=== PATIENT | male | born 1945 | race Caucasian/White ===

== ENCOUNTER → 2018-05-20 09:27 | Outpatient (CLI) | payer MEDICARE, SELFPAY ==
[2018-05-20 10:09] LABS: Appearance Urine UA CLEAR; Bilirubin Urine UA NEGATIVE (NEGATIVE); Color Urine UA YELLOW; Glucose Urine UA NEGATIVE (Negative); Ketones Urine UA NEGATIVE (NEGATIVE); Leukocyte Esterase Urine UA NEGATIVE (NEGATIVE); Nitrite Urine UA NEGATIVE (Negative); Occult Blood Urine UA 1+ (Negative); Protein Urine UA NEGATIVE (Negative); Specific Gravity Urine UA 1.015 (1.000-1.035); Urobilinogen Urine UA 0.2 E.U./dL (0.2)
[2018-05-20 10:18] LABS: Add Manual Diff / Slide Review NO; Basophils Absolute Auto 100 /uL (0-100); Basophils Percent Auto 1.1 % (0-2); Eosinophils Absolute Auto 200 /uL (0-450); Eosinophils Percent Auto 2.3 % (2-4); Hemoglobin 14.9 g/dL (13.5-17.5); Lymphocytes Absolute Auto 1800 /uL (1100-4500); Lymphocytes Percent Auto 26.9 % (25-40); Mean Corpuscular HGB Conc 33.1 % (30-36); Mean Corpuscular Hemoglobin 30.1 PG (26-34); Mean Corpuscular Volume 90.9 fL (80-100); Monocytes Absolute Auto 800 /uL (0-900); Monocytes Percent Auto 11.2 % (3-14); Neutrophils Absolute Auto 3900 /uL (1500-7000); Neutrophils Percent Auto 58.5 % (50-75); Platelet Count 228 X10^3/uL (150-400); Red Blood Cell Count 4.95 X10^6/uL (4.5-5.9); Red Cell Distribution Width 14.6 % (11.6-14.8); White Blood Cell Count 6.7 X10^3/uL (4.5-11.0)
[2018-05-20 10:35] LABS: Alanine Aminotransferase 28 IU/L (21-72); Albumin 4.5 g/dL (3.5-5.0); Albumin Globulin Ratio 1.5 (1.0-2.8); Alkaline Phosphatase 66 U/L (38-126); Aspartate Aminotransferase 22 IU/L (17-59); BUN Creatinine Ratio 10.9 (6-22); Bilirubin Total 0.5 mg/dL (0.2-1.3); Blood Urea Nitrogen 12 mg/dL (9-20); Calcium 9.4 mg/dL (8.4-10.2); Carbon Dioxide 28 mmol/L (22-32); Chloride 100 mmol/L (98-107); Cholesterol 161 mg/dL (140-199); Estimated Glomerular Filt Rate > 60.0 mL/min (>60); Globulin 3.1 g/dL (1.7-4.1); Glucose 100 mg/dL (80-110); HDL Cholesterol 26 mg/dL (40-60); HEMOLYSIS < 15 (0-50); LDL Cholesterol Calculated 109 mg/dL (<100); Potassium 4.7 mmol/L (3.4-5.1); Sodium 139 mmol/L (137-145); Total Protein 7.6 g/dL (6.3-8.2); Triglycerides 129 mg/dL (35-150)
[2018-05-20 11:06] LABS: Prostate Specific Antigen Scrn 6.34 ng/mL (0.1-4.0); Thyroid Stimulating Hormone 4.31 uIU/mL (0.47-4.68)
== END ==
PROVIDERS: PCP Family Medicine; Visit Provider Family Medicine
DX: I10 Essential (primary) hypertension (principal); N40.0 Benign prostatic hyperplasia without lower urinary tract symptoms; Z12.5 Encounter for screening for malignant neoplasm of prostate; Z13.29 Encounter for screening for other suspected endocrine disorder; Z51.81 Encounter for therapeutic drug level monitoring; Z86.73 Personal history of transient ischemic attack (TIA), and cerebral infarction without residual deficits
CPT/HCPCS: 36415; 80053; 80061; 81003; 84443; 85025; G0103

== ENCOUNTER → 2019-09-05 14:12 | Outpatient (CLI) | payer MEDICARE, SELFPAY ==
[2019-09-05 14:53] LABS: INR 3.4 (0.9-1.3); Prothrombin Time 38.2 SECONDS (10.1-12.7)
[2019-09-05 15:03] LABS: BUN Creatinine Ratio 17.6 (6-22); Blood Urea Nitrogen 19 mg/dL (9-20); Calcium 9.7 mg/dL (8.4-10.2); Carbon Dioxide 27 mmol/L (22-32); Chloride 103 mmol/L (98-107); Estimated Glomerular Filt Rate > 60.0 mL/min (>60); Glucose 94 mg/dL (80-110); HEMOLYSIS < 15 (0-50); Potassium 4.1 mmol/L (3.4-5.1); Sodium 140 mmol/L (137-145)
== END ==
PROVIDERS: PCP Student in an Organized Health Care Education/Training Program; Referring Provider Student in an Organized Health Care Education/Training Program; Visit Provider Student in an Organized Health Care Education/Training Program
DX: I10 Essential (primary) hypertension (principal); Z78.9 Other specified health status; I48.91 Unspecified atrial fibrillation
CPT/HCPCS: 36415; 80048; 85610

== ENCOUNTER → 2020-08-14 08:52 | Outpatient (CLI) | payer MEDICARE, SELFPAY ==
[2020-08-14 09:43] LABS: COVID19 -Nasal RAPID Negative (Negative)
== END ==
PROVIDERS: PCP Student in an Organized Health Care Education/Training Program; Referring Provider Internal Medicine; Visit Provider Internal Medicine
DX: Z20.822 Contact with and (suspected) exposure to COVID-19 (principal)
CPT/HCPCS: 87635; C9803

== ENCOUNTER → 2020-08-15 10:43 | Outpatient (CLI) | payer MEDICARE, SELFPAY ==
--- NOTE | 2020-08-21 11:09 | PM.PFT.1 ---
Pulmonary Function Test Referral & Results Date Patient Seen: 08/15/20 Requesting provider: Warren Negron Results: The spirometry demonstrates an FVC of 2.16 L which is 55% of predicted. The FEV1 was measured at 1.45 L which is 51% of predicted. The FEV1/FVC ratio was 67 which is 91% of predicted. Lung volumes show an SVC of 2.26 L which is 53% of predicted. The diffusing capacity was measured at 16.17 which is 54% of predicted. No hemoglobin value was provided, so no correction for potential anemia could be made, if appropriate. The maximum voluntary ventilation was reduced Interpretation: This study demonstrates moderately severe obstructive lung disease based on reduction FEV1 although FEV1/FVC ratio is preserved somewhat, and reduction in FEV1 maybe due in part to restrictive lung disease, shape a flow volume loop also does support the diagnosis of obstructive lung disease There is also moderately severe restrictive lung disease based on reduction SVC There is also moderate reduction in diffusing capacity suggesting significant disease at the capillary alveolar level
== END ==
PROVIDERS: PCP Student in an Organized Health Care Education/Training Program; Referring Provider Student in an Organized Health Care Education/Training Program; Visit Provider Student in an Organized Health Care Education/Training Program
DX: R06.00 Dyspnea, unspecified (principal); J44.9 Chronic obstructive pulmonary disease, unspecified; Z87.891 Personal history of nicotine dependence
CPT/HCPCS: 94060; 94726; 94729

== ENCOUNTER → 2021-11-17 13:16 | Outpatient (CLI) | payer MEDICARE, SELFPAY ==
[2021-11-17 15:07] LABS: Prothrombin Time 35.4 SECONDS (10.1-12.7)
== END ==
PROVIDERS: PCP Student in an Organized Health Care Education/Training Program; Referring Provider Student in an Organized Health Care Education/Training Program; Visit Provider Student in an Organized Health Care Education/Training Program
DX: Z79.01 Long term (current) use of anticoagulants (principal)
CPT/HCPCS: 36415; 85610

== ENCOUNTER 2022-02-18 12:38 | Emergency (ER) | payer MEDICARE, SELFPAY ==
[2022-02-18 12:45] VITALS: BP 143/69; PULSE 71; RESP 20; TEMP 36.7; O2SAT 96; BMI 32.5
[2022-02-18 12:47] VITALS: BP 143/69
[2022-02-18 12:48] VITALS: PULSE 68; O2SAT 96
[2022-02-18 13:00] VITALS: PULSE 64; O2SAT 97
--- NOTE | 2022-02-18 13:11 | DI.RAD.S_ITS ---
PROCEDURE: XR CHEST 1V INDICATIONS: COPD vs pneumonia TECHNIQUE: One view of the chest was acquired. COMPARISON: [facility], , CHEST 2 VIEW, 11/21/2015, 10:02. [facility], , CHEST 2 VIEW, 06/26/2014, 11:26. FINDINGS: Surgical changes and devices: Post median sternotomy. Lungs and pleura: Opacity in the right lower lobe. No pleural effusions or pneumothorax. Mediastinum: Mediastinal contours appear similar. Heart size is enlarged. Bones and chest wall: No suspicious bony lesions. Overlying soft tissues appear unremarkable. IMPRESSION: Opacity in the right lung is suspected. Concern for pneumonia. Heart size is prominent. CT of the chest could be considered for further evaluation. Dictated by: Artie Hidalgo M.D. on 02/18/2022 at 13:54 Approved by: Artie Hidalgo M.D. on 02/18/2022 at 13:56
--- NOTE | 2022-02-18 13:14 | ED.URI ---
HPI - URI/Sore Throat <Jackie Miller, [facility] - Last Filed: 02/18/22 14:17> General Chief Complaint: Upper Respiratory Symptoms Stated Complaint: cough with blood in it t-7 Time Seen by Provider: 02/18/22 12:55 Source: patient Mode of arrival: Ambulatory History of Present Illness HPI Narrative: This is a 76-year-old male who presents to the emergency department complaining shortness of breath secondary to running out of his albuterol and ipratropium inhalers. He states that he gets these from [facility] and his supply did not come to. He denies any worsening shortness of breath, upper respiratory symptoms out of ordinary, wheezing, difficulty breathing, difficulty swallowing or other new problem. He states that he is had productive cough, it is had some blood in it over the last week after he had a nosebleed. Patient states that his last INR is 2.9 and it was approximately 4 weeks ago. He states he checks his INR home if he has not really bleeding which he states he has not. He endorses that he has a nosebleed approximately once every week, states that he is had increased nasal congestion and rhinorrhea over the last 2 weeks and states that he took ibuprofen which he knows increases his bleeding time but helped his symptoms. Related Data Previous Rx's Medication Instructions Recorded warfarin 2.5 mg tablet 2.5 mg PO DAILY #110 tabs 08/26/21 albuterol sulfate 90 mcg/actuation 2 puff inhalation Q6H PRN 12/22/21 aerosol inhaler shortness of breath or wheezing #8.5 grams ipratropium bromide 17 2 puff inhalation Q8H #12.9 grams 12/22/21 mcg/actuation HFA aerosol inhaler metoprolol succinate 50 mg 50 mg PO BEDTIME #90 tabs 12/22/21 tablet,extended release 24 hr terazosin 10 mg capsule 10 mg PO QDAY #90 caps 12/30/21 clobetasol 0.05 % topical cream 1 applic topical DAILY PRN 02/09/22 Psoriasis #30 grams albuterol sulfate 90 mcg/actuation 1 puff inhalation QID PRN 02/18/22 aerosol inhaler shortness of breath or wheezing #8.5 grams amoxicillin 875 mg-potassium 1 tab PO BID 5 days #10 tabs 02/18/22 clavulanate 125 mg tablet azithromycin 250 mg tablet 250 mg PO DAILY 4 days #4 tabs 02/18/22 fluticasone propionate 50 1 spray intranasal BID #16 grams 02/18/22 mcg/actuation nasal spray,suspension ipratropium bromide 17 1 inh inhalation Q6H PRN shortness 02/18/22 mcg/actuation HFA aerosol inhaler of breath or wheezing #12.9 grams prednisone 20 mg tablet 40 mg PO DAILY #20 tabs 02/18/22 Allergies Allergy/AdvReac Type Severity Reaction Status Date / Time No Known Drug Allergies Allergy Verified 02/18/22 12:54 Review of Systems <IVAN Dougherty - Last Filed: 02/18/22 14:17> Review of Systems Narrative: Review of systems is negative for acute abnormalities unless otherwise noted in HPI Patient History <IVAN Dougherty - Last Filed: 02/18/22 14:17> Medical History Atrial fibrillation (Unknown) BPH (benign prostatic hyperplasia) (Unknown) COPD (chronic obstructive pulmonary disease) (Unknown) Enlarged heart (Unknown) History of CVA (cerebrovascular accident) (Unknown) Hypertension (Unknown) Psoriasis (Unknown) Stroke (Unknown) Surgical History Hx of angioplasty (1979) Hx of CABG (Unknown) Social History Smoking Status: Former smoker Smoking Status: Former smoker alcohol intake frequency: other Substance Use Type: does not use Exam <IVAN Dougherty - Last Filed: 02/18/22 14:17> Narrative Exam Narrative: Reviewed vitals signs and nursing notes. General: cooperative, comfortable, in no acute distress, well groomed HEENT: symmetrical facial expressions, moist mucous membranes, moist nasal mucosa without superficial vessels in the Kiesselbach plexus, posterior pharynx without erythema, lesion, tonsillar adenopathy, blood, uvula is midline, without anterior cervical lymphadenopathy, patient endorses tenderness in his throat due to coughing Cardiovascular: regular rate and rhythm, no peripheral edema, warm extremities Respiratory: normal effort, crackles auscultated in bilateral bases able to speak in complete sentences, without wheezing, stridor, or abnormal breath sounds. No retractions or tachypnea. GI: abdomen soft, nontender to palpation, nondistended, without masses, rebound tenderness or exquisite tenderness with exam. MSK: moves all extremities, neurovascularly intact, no weakness, normal tone Skin: brisk capillary refill, without pallor or erythema Neuro: normal speech and cognition, A&O x3, ambulatory, clear speech Psych: mental status is grossly normal, congruent mood, normal affect, pleasant and cooperative Initial Vital Signs Initial Vital Signs: Vital Signs Temperature 98.1 F 02/18/22 12:45 Pulse Rate 71 02/18/22 12:45 Respiratory Rate 20 02/18/22 12:45 Blood Pressure 143/69 H 02/18/22 12:45 Pulse Oximetry 96 02/18/22 12:45 Oxygen Delivery Method 02/18/22 12:45 <Ashwin Gill DO - Last Filed: 02/18/22 15:04> Initial Vital Signs Initial Vital Signs: Vital Signs Temperature 98.1 F 02/18/22 12:45 Pulse Rate 71 02/18/22 12:45 Respiratory Rate 20 02/18/22 12:45 Blood Pressure 143/69 H 02/18/22 12:45 Pulse Oximetry 96 02/18/22 12:45 Oxygen Delivery Method 02/18/22 12:45 Scores <IVAN Dougherty - Last Filed: 02/18/22 14:17> Wells' Criteria for PE Clinical signs and symptoms of DVT: No PE is #1 Dx or equally likely: No Heart rate > 100: No Immobilization at least 3 days or surg in previous 4 weeks: No History of PE or DVT: No Hemoptysis: Yes Malignancy w/Treatment within 6 months or palliative: No Wells' PE Score total: 1 <Ashwin Gill DO - Last Filed: 02/18/22 15:04> WellsAngela Criteria for PE Wells' PE Score total: 1 Course <IVAN Dougherty - Last Filed: 02/18/22 14:17> Orders Ordered: ED Orders 02/18/22 12:55 RT Consult Eval and Treat NOW 02/18/22 13:11 Chest [XR chest 1V] Stat Discontinued Medications Albuterol/Ipratropium (Albuterol/Ipratropium 3 Ml Ampul) 3 ml INH NOW ONE Stop: 02/18/22 13:08 Last Admin: 02/18/22 13:42 Dose: 3 ml Documented By: KEITH Amoxicillin/Clavulanate Potassium (Amoxicillin/Clav 875/125 Mg) 1 tab PO NOW ONE Stop: 02/18/22 14:06 Last Admin: 02/18/22 14:12 Dose: 1 tab Documented By: TALON Azithromycin (Azithromycin 250 Mg Tablet) 500 mg PO NOW ONE Stop: 02/18/22 14:06 Last Admin: 02/18/22 14:13 Dose: 500 mg Documented By: TALON Prednisone (Prednisone 20 Mg Tablet) 60 mg PO NOW ONE Stop: 02/18/22 13:32 Last Admin: 02/18/22 13:38 Dose: 60 mg Documented By: TALON Vital Signs Vital signs: Vital Signs - 8 hr 02/18/22 12:45 02/18/22 12:47 02/18/22 12:48 Temperature 98.1 F Pulse Rate 71 68 Respiratory Rate 20 Blood Pressure 143/69 H 143/69 H Pulse Oximetry 96 96 Oxygen Delivery Method Room Air 02/18/22 13:00 02/18/22 13:30 Temperature Pulse Rate 64 62 Respiratory Rate 18 Blood Pressure Pulse Oximetry 97 98 Oxygen Delivery Method Room Air <Ashwin Gill DO - Last Filed: 02/18/22 15:04> Orders Ordered: ED Orders 02/18/22 12:55 RT Consult Eval and Treat NOW 02/18/22 13:11 Chest [XR chest 1V] Stat Discontinued Medications Albuterol/Ipratropium (Albuterol/Ipratropium 3 Ml Ampul) 3 ml INH NOW ONE Stop: 02/18/22 13:08 Last Admin: 02/18/22 13:42 Dose: 3 ml Documented By: KEITH Amoxicillin/Clavulanate Potassium (Amoxicillin/Clav 875/125 Mg) 1 tab PO NOW ONE Stop: 02/18/22 14:06 Last Admin: 02/18/22 14:12 Dose: 1 tab Documented By: TALON Azithromycin (Azithromycin 250 Mg Tablet) 500 mg PO NOW ONE Stop: 02/18/22 14:06 Last Admin: 02/18/22 14:13 Dose: 500 mg Documented By: ADK Prednisone (Prednisone 20 Mg Tablet) 60 mg PO NOW ONE Stop: 02/18/22 13:32 Last Admin: 02/18/22 13:38 Dose: 60 mg Documented By: TALON Vital Signs Vital signs: Vital Signs - 8 hr 02/18/22 12:45 02/18/22 12:47 02/18/22 12:48 Temperature 98.1 F Pulse Rate 71 68 Respiratory Rate 20 Blood Pressure 143/69 H 143/69 H Pulse Oximetry 96 96 Oxygen Delivery Method Room Air 02/18/22 13:00 02/18/22 13:30 Temperature Pulse Rate 64 62 Respiratory Rate 18 Blood Pressure Pulse Oximetry 97 98 Oxygen Delivery Method Room Air MDM - URI/Sore Throat <Jackie Miller [facility] - Last Filed: 02/18/22 14:17> Imaging Data Chest x-ray: Radiologist's Impression: PROCEDURE:? XR CHEST 1V ? INDICATIONS:? COPD vs pneumonia ? TECHNIQUE:? One view of the chest was acquired.? ? COMPARISON:? [facility], CHEST 2 VIEW, 11/21/2015, 10:02.? [facility], CHEST 2 VIEW, 06/26/2014, 11:26. ? FINDINGS:? ? Surgical changes and devices:? Post median sternotomy. ? Lungs and pleura:? Opacity in the right lower lobe.? No pleural effusions or pneumothorax.? ? Mediastinum:? Mediastinal contours appear similar.? Heart size is enlarged.? ? Bones and chest wall:? No suspicious bony lesions.? Overlying soft tissues appear unremarkable.? ? IMPRESSION:? Opacity in the right lung is suspected.? Concern for pneumonia. ? Heart size is prominent. ? CT of the chest could be considered for further evaluation.? ? Dictated by: Artie Hidalgo M.D. on 02/18/2022 at 13:54 ? ? Approved by: Artie Hidalgo M.D. on 02/18/2022 at 13:56 ? [facility] Narrative Medical decision making narrative: This is a 76-year-old gentleman who presents to the emergency department requesting a medication refill of his albuterol and ipratropium inhalers as he ran out today for his COPD. Denies any exacerbating symptoms of his COPD, does mention hemoptysis over the last week after he had an episode of epistaxis 1 week ago. He states that that he was able to control easily it blood down the back of his throat for a little while. He states that his shortness of breath is worse with exertion, he denies orthopnea chest pain palpitations, swollen was lower extremities, endorses increased nasal congestion recently. He gets his medications from [facility] since they are much cheaper than here. Patient does not wish to brass pickler the ipratropium due to the cost of 500 dollars. Instead he was treated today with prednisone and given a prescription to titrate down on at home until his medication arrives. Chest x-ray shows patchy opacity for right lower base concerning for pneumonia, clinically he has crackles to this region and mildly diminished. Since he has a history of COPD, his risk was elevated especially since his inhalers were gone, refilled his albuterol and ipratropium although he wishes to pursue prednisone instead due to the cost of Atrovent. Treated him with azithromycin and Augmentin x5 days for community-acquired pneumonia. He was given strict return precautions, understands to follow-up with his primary care provider if his symptoms are worsening or as needed. Discharge Plan Departure Patient Disposition: Home Clinical Impression: Encounter for medication refill Pneumonia Qualifiers: Pneumonia type: due to unspecified organism Laterality: right Lung location: lower lobe of lung Qualified Code(s): J18.9 - Pneumonia, unspecified organism COPD (chronic obstructive pulmonary disease) Qualifiers: COPD type: chronic bronchitis Chronic bronchitis type: simple Qualified Code(s): J41.0 - Simple chronic bronchitis Instructions: Chronic Obstructive Pulmonary Disease, DI for Pneumonia -- Adult Activity Restrictions/Additional Instructions: *You have been diagnosed with COPD without exacerbation, please brass pickler your inhalers at [facility], I have given you 3 refills of them if you need it. Use them as needed, for productive cough, please stay hydrated and take Mucinex, use saline nasal spray to help keep your nose moist and avoid bloody noses, a humidifier can be helpful in the winter as well. Please take your antibiotics as prescribed, follow-up with your primary doctor if you have worsening, you can try Flonase twice a day for nasal congestion, the steroid will likely clean that up for you. Remember to stay hydrated, thank you for coming in Thank you for coming in for evaluation, please come back if you have increasing bleeding or other concerns. It was nice to meet you, happy Thanksgiving. If you have inappropriate bleeding, please remember to check your INR. You do not need to brass pickler the ipratropium due to the cost. *What to do: *Please continue to take your regular medications as directed. [x ] New medication prescriptions sent to your pharmacy: [[facility] ] [ ] New medication written as a paper prescription [ ] No new medications given *Please follow up with your primary care provider in 2-3 days, call for an appointment. Let them know you were seen in the Emergency Department and that we asked that you be seen for follow-up. We will electronically transmit a record of today's note if your PCP is in our system *If you do not have a primary care provider please contact [phone] to establish care with one of the [facility] primary care providers. *Return to Emergency Department if you should have any new, worsening, or concerning symptoms, such as [fever greater than 101F, chills, worsening pain, persistent vomiting or other bothersome symptoms]. Prescriptions: New albuterol sulfate 90 mcg/actuation HFA aerosol inhaler 1 puff inhalation QID PRN (Reason: shortness of breath or wheezing) Qty: 8.5 3RF ipratropium bromide 17 mcg/actuation HFA aerosol inhaler 1 inh inhalation Q6H PRN (Reason: shortness of breath or wheezing) Qty: 12.9 3RF prednisone 20 mg tablet 40 mg PO DAILY Qty: 20 0RF Rx Instructions: Please take 40 mg daily for the next 5 days, then take 20 for 1-3 days until your ipratropium arrives amoxicillin-pot clavulanate 875-125 mg tablet 1 tab PO BID 5 Days Qty: 10 0RF azithromycin 250 mg tablet 250 mg PO DAILY 4 Days Qty: 4 0RF Rx Instructions: start on day 2 of therapy fluticasone propionate 50 mcg/actuation spray,suspension 1 spray intranasal BID Qty: 16 0RF Rx Instructions: administer into each nostril No Action warfarin 2.5 mg tablet 2.5 mg PO DAILY Qty: 110 1RF Rx Instructions: Take 5mg on Wednesday, 3.75mg on Wednesday and 1 tab (2.5) all other days or as directed. terazosin 10 mg capsule 10 mg PO QDAY Qty: 90 3RF clobetasol 0.05 % cream 1 applic TOP DAILY PRN (Reason: Psoriasis) Qty: 30 11RF metoprolol succinate 50 mg tablet extended release 24 hr 50 mg PO BEDTIME Qty: 90 3RF albuterol sulfate 90 mcg/actuation HFA aerosol inhaler 2 puff inhalation Q6H PRN (Reason: shortness of breath or wheezing) Qty: 8.5 11RF ipratropium bromide 17 mcg/actuation HFA aerosol inhaler 2 puff inhalation Q8H Qty: 12.9 11RF Referrals: Warren Negron MD [Primary Care Provider] - Visit Report Forms: Patient Portal/API <Ashwin Gill DO - Last Filed: 02/18/22 15:04> Cosign ED Attending Cosignature Attestation: Dr Gill Co-Sign Statement: I was available for consultation during this patient's emergency department visit. This chart is signed by myself for administrative purposes only. I did not have direct contact with this patient during this visit. They were seen independently by the APC.
[2022-02-18 13:30] VITALS: PULSE 62; RESP 18; O2SAT 98
[2022-02-18] MEDS: predniSONE 20 MG TABLET 60 MG PO (13:38)
[2022-02-18] MEDS: ALBUTEROL/IPRATROPIUM 3 ML AMPUL INH (13:42)
[2022-02-18] MEDS: AMOXICILLIN/CLAV 875/125 MG 1 TAB PO (14:12)
[2022-02-18] MEDS: AZITHROMYCIN 250 MG TABLET 500 MG PO (14:13)
== END 2022-02-18 14:18 | disposition home or self-care (01) ==
PROVIDERS: Emergency Provider Nurse Practitioner Critical Care Medicine; PCP Student in an Organized Health Care Education/Training Program
DX: J18.9 Pneumonia, unspecified organism (principal); J41.0 Simple chronic bronchitis; Z76.0 Encounter for issue of repeat prescription; Z79.899 Other long term (current) drug therapy; Z79.01 Long term (current) use of anticoagulants
CPT/HCPCS: 71045; 99283; 99284

== ENCOUNTER 2022-07-14 11:03 | Emergency (ER) | payer MEDICARE, SELFPAY ==
[2022-07-14] VITALS (14 sets, daily range): BP systolic 162–185; BP diastolic 71–79; PULSE 75–88; RESP 18–26; TEMP 36.6; O2SAT 91–96; BMI 32.2
--- NOTE | 2022-07-14 11:06 | DI.RAD.S_ITS ---
PROCEDURE: XR CHEST 1V INDICATIONS: SOB TECHNIQUE: One view of the chest was acquired. COMPARISON: [facility], CR, XR CHEST 1V, 02/18/2022, 13:16. FINDINGS: Surgical changes and devices: None. Lungs and pleura: Pulmonary vascular congestion and pulmonary edema is seen. No definite focal infiltrate. No pleural effusions or pneumothorax. Mediastinum: Mediastinal contours appear normal. Heart size is enlarged. Bones and chest wall: No suspicious bony lesions. Overlying soft tissues appear unremarkable. IMPRESSION: Seen finding is suggestive of CHF. No definite focal infiltrate. No pleural effusion or pneumothorax. Dictated by: Dontrell Lebron M.D. on 07/14/2022 at 11:40 Approved by: Dontrell Lebron M.D. on 07/14/2022 at 11:41
--- NOTE | 2022-07-14 11:16 | ED_ITS ---
HPI - General Adult General Chief complaint: Shortness of Breath/Dyspnea Stated complaint: SOB/chest pain Time Seen by Provider: 07/14/22 11:04 Source: patient Mode of arrival: Wheelchair History of Present Illness HPI narrative: Patient is a 77-year-old male with a history of COPD. Also has a history of coronary artery disease. Has had coronary artery bypass grafts in the past. Is on anticoagulation. Is here for evaluation of approximately 1 week of worsening/progressive shortness of breath. He is coughing. He is chest pain with the cough. No vomiting. No fevers. No known exposures to COVID or the flu. He has been using his inhalers at home with minimal improvement. No abdominal pain. No skin rashes. Related Data Previous Rx's Medication Instructions Recorded albuterol sulfate 90 mcg/actuation 2 puff inhalation Q6H PRN 12/22/21 aerosol inhaler shortness of breath or wheezing #8.5 grams ipratropium bromide 17 2 puff inhalation Q8H #12.9 grams 12/22/21 mcg/actuation HFA aerosol inhaler metoprolol succinate 50 mg 50 mg PO BEDTIME #90 tabs 12/22/21 tablet,extended release 24 hr terazosin 10 mg capsule 10 mg PO QDAY #90 caps 12/30/21 clobetasol 0.05 % topical cream 1 applic topical DAILY PRN 02/09/22 Psoriasis #30 grams albuterol sulfate 90 mcg/actuation 1 puff inhalation QID PRN 02/18/22 aerosol inhaler shortness of breath or wheezing #8.5 grams fluticasone propionate 50 1 spray intranasal BID #16 grams 02/18/22 mcg/actuation nasal spray,suspension ipratropium bromide 17 1 inh inhalation Q6H PRN shortness 02/18/22 mcg/actuation HFA aerosol inhaler of breath or wheezing #12.9 grams prednisone 20 mg tablet 40 mg PO DAILY #20 tabs 02/18/22 warfarin 2.5 mg tablet See Rx Instructions .Route 03/24/22 .COMPLEX #110 tabs azithromycin 250 mg tablet 250 mg PO DAILY 4 days #4 tabs 07/14/22 furosemide 20 mg tablet (Lasix) 20 mg PO DAILY 7 days #7 tabs 07/14/22 prednisone 20 mg tablet 20 mg PO DAILY 5 days #5 tabs 07/14/22 Allergies Allergy/AdvReac Type Severity Reaction Status Date / Time No Known Drug Allergies Allergy Verified 02/18/22 12:54 Review of Systems Review of Systems ROS Unobtainable: All systems reviewed & are unremarkable except as noted in HPI and below Patient History Medical History Atrial fibrillation (Unknown) BPH (benign prostatic hyperplasia) (Unknown) COPD (chronic obstructive pulmonary disease) (Unknown) Enlarged heart (Unknown) History of CVA (cerebrovascular accident) (Unknown) Hypertension (Unknown) Psoriasis (Unknown) Stroke (Unknown) Surgical History Hx of angioplasty (1979) Hx of CABG (Unknown) Social History Smoking Status: Former smoker Smoking Status: Former smoker alcohol intake frequency: holidays/special occasions only Substance Use Type: does not use Exam Initial Vital Signs Initial Vital Signs: Vital Signs Pulse Rate 75 07/14/22 11:09 Pulse Oximetry 96 07/14/22 11:09 Const General: cooperative and No ill appearing HENMT Head: normal to inspection and normocephalic Resp Effort & Inspection: tachypneic Auscultation: diminished lung sounds Cardio Rate: regular rate GI Inspection: normal to inspection Skin General: no rashes or lesions noted Neuro General: patient alert, patient awake and moves all extremities Extrem General: capillary refill normal Psych Appearance: grossly normal and well kempt Course Orders Ordered: ED Orders 07/14/22 11:06 XR chest 1V Stat 07/14/22 11:18 Complete Blood Count AUTO DIFF Stat Comprehensive Metabolic Panel Stat NT-proBNP (BNP-Adult 18+) Stat PTT Partial Thromboplastin Benny Stat Prothrombin Time INR Stat Troponin & CK Cardiac Panel Stat 07/14/22 11:23 EKG-12 Lead Stat 07/14/22 11:33 Respiratory Panel (Film Array) Stat 07/14/22 13:13 Troponin & CK Cardiac Panel Stat Discontinued Medications Albuterol/Ipratropium (Albuterol/Ipratropium 3 Ml Ampul) 3 ml INH NOW ONE Stop: 07/14/22 11:17 Last Admin: 07/14/22 11:31 Dose: 3 ml Documented By: MADY Azithromycin (Azithromycin 250 Mg Tablet) 500 mg PO NOW ONE Stop: 07/14/22 14:33 Furosemide 60 mg/ Sodium (Chloride) 56 mls @ 112 mls/hr IV NOW ONE Stop: 07/14/22 11:58 Last Infusion: 07/14/22 12:46 Dose: 0 mls/hr Documented By: MADY(2) Admin: 07/14/22 12:07 Dose: 112 mls/hr Documented By: MADY(2) Methylprednisolone (Methylprednisolone 125 Mg/2 Ml Vial) 125 mg IV NOW ONE Stop: 07/14/22 11:17 Last Admin: 07/14/22 11:31 Dose: 125 mg Documented By: MADY Vital Signs Vital signs: Vital Signs - 8 hr 07/14/22 11:11 07/14/22 11:41 07/14/22 11:09 Temperature 97.9 F Pulse Rate 79 76 75 Respiratory Rate 26 H 18 Blood Pressure 167/77 H Pulse Oximetry 95 93 96 Oxygen Delivery Method Room Air Room Air 07/14/22 11:11 07/14/22 11:11 07/14/22 11:30 Temperature Pulse Rate 81 81 Respiratory Rate 22 22 Blood Pressure 167/77 H Pulse Oximetry 93 93 Oxygen Delivery Method 07/14/22 11:44 07/14/22 11:44 07/14/22 11:51 Temperature Pulse Rate 76 Respiratory Rate 22 Blood Pressure 185/78 H 177/79 H Pulse Oximetry 91 Oxygen Delivery Method 07/14/22 11:51 07/14/22 12:00 07/14/22 12:00 Temperature Pulse Rate 77 77 Respiratory Rate 20 18 Blood Pressure 162/76 H Pulse Oximetry 92 95 Oxygen Delivery Method 07/14/22 12:31 07/14/22 12:33 07/14/22 12:33 Temperature Pulse Rate 81 85 Respiratory Rate 22 23 Blood Pressure 165/75 H Pulse Oximetry 91 93 Oxygen Delivery Method 07/14/22 14:09 07/14/22 14:10 Temperature Pulse Rate 78 78 Respiratory Rate Blood Pressure Pulse Oximetry 93 93 Oxygen Delivery Method Room Air Medical Decision Making Medical Records Medical records reviewed: Yes I reviewed the patient's medical records. Lab Data Lab results reviewed: Yes I reviewed the patient's lab results. 07/14/22 11:18 07/14/22 11:18 Labs: Lab Results 07/14/22 07/14/22 07/14/22 Range/Units 11:18 11:18 11:18 WBC 7.6 (4.5-11.0) X10^3/uL RBC 4.93 (4.5-5.9) X10^6/uL Hgb 14.1 (13.5-17.5) g/dL Hct 43.1 (41-53) % MCV 87.3 (80-100) fL MCH 28.6 (26-34) PG MCHC 32.8 (30-36) % RDW 16.2 H (11.6-14.8) % Plt Count 225 (150-400) X10^3/uL Neut % (Auto) 66.7 (50-75) % Lymph % (Auto) 20.2 L (25-40) % [place] % (Auto) 9.7 (3-14) % Eos % (Auto) 2.5 (2-4) % Baso % (Auto) 0.9 (0-2) % Neut # (Auto) 5000 (5259-9698) /uL Lymph # (Auto) 1500 (2257-3332) /uL [place] # (Auto) 700 (0-900) /uL Eos # (Auto) 200 (0-450) /uL Baso # (Auto) 100 (0-100) /uL PT 23.4 H (10.1-12.7) SECONDS INR 2.0 H (0.9-1.3) APTT 40 H (26-36) SECONDS Sodium 136 L (137-145) mmol/L Potassium 4.0 (3.4-5.1) mmol/L Chloride 99 (98-107) mmol/L Carbon Dioxide 29 (22-32) mmol/L BUN 18 (9-20) mg/dL Creatinine 1.04 (0.66-1.25) mg/dL Estimated GFR > 60 (>60) mL/min BUN/Creatinine Ratio 17.3 (6-22) Glucose 109 (80-110) mg/dL Calcium 9.2 (8.4-10.2) mg/dL Total Bilirubin 0.8 (0.2-1.3) mg/dL AST 22 (17-59) IU/L ALT 21 (<50) IU/L Alkaline Phosphatase 97 (38-126) U/L Total Creatine Kinase (55-170) U/L CK-MB (CK-2) CK-MB (CK-2) Rel Index Troponin I (0.01-0.034) ng/mL NT-Pro-B Natriuret Pep 3090 H (<450) pg/mL Total Protein 7.6 (6.3-8.2) g/dL Albumin 4.2 (3.5-5.0) g/dL Globulin 3.4 (1.7-4.1) g/dL Albumin/Globulin Ratio 1.2 (1.0-2.8) Chlamy pneumoniae PCR (Not Detect) Adenovirus (PCR) (Not Detect) B. pertussis DNA (PCR) (Not Detecte) B.parapertussis DNA PCR (Not Detecte) Coronavirus OC43 (PCR) (Not Detect) Coronavirus HKU1 (PCR) (Not Detect) Coronavirus 229E (PCR) (Not Detect) SARS-CoV-2 (PCR) (Not Detecte) Coronavirus NL63 (PCR) (Not Detect) Human Metapneumovir PCR (Not Detect) Influenza Type A (PCR) (Not Detect) Influenza Type B (PCR) (Not Detect) M. pneumoniae (PCR) (Not Detect) Parainfluenza 1 (PCR) (Not Detect) Parainfluenza 2 (PCR) (Not Detect) Parainfluenza 3 (PCR) (Not Detect) Parainfluenza 4 (PCR) (Not Detect) RSV (PCR) (Not Detect) Entero/Rhino (PCR) (Not Detect) 07/14/22 07/14/22 07/14/22 Range/Units 11:18 11:33 13:13 WBC (4.5-11.0) X10^3/uL RBC (4.5-5.9) X10^6/uL Hgb (13.5-17.5) g/dL Hct (41-53) % MCV (80-100) fL MCH (26-34) PG MCHC (30-36) % RDW (11.6-14.8) % Plt Count (150-400) X10^3/uL Neut % (Auto) (50-75) % Lymph % (Auto) (25-40) % [place] % (Auto) (3-14) % Eos % (Auto) (2-4) % Baso % (Auto) (0-2) % Neut # (Auto) (8959-5963) /uL Lymph # (Auto) (9880-1859) /uL [place] # (Auto) (0-900) /uL Eos # (Auto) (0-450) /uL Baso # (Auto) (0-100) /uL PT (10.1-12.7) SECONDS INR (0.9-1.3) APTT (26-36) SECONDS Sodium (137-145) mmol/L Potassium (3.4-5.1) mmol/L Chloride (98-107) mmol/L Carbon Dioxide (22-32) mmol/L BUN (9-20) mg/dL Creatinine (0.66-1.25) mg/dL Estimated GFR (>60) mL/min BUN/Creatinine Ratio (6-22) Glucose (80-110) mg/dL Calcium (8.4-10.2) mg/dL Total Bilirubin (0.2-1.3) mg/dL AST (17-59) IU/L ALT (<50) IU/L Alkaline Phosphatase (38-126) U/L Total Creatine Kinase 28 L 27 L (55-170) U/L CK-MB (CK-2) TNP TNP CK-MB (CK-2) Rel Index TNP TNP Troponin I 0.063 H 0.055 H (0.01-0.034) ng/mL NT-Pro-B Natriuret Pep (<450) pg/mL Total Protein (6.3-8.2) g/dL Albumin (3.5-5.0) g/dL Globulin (1.7-4.1) g/dL Albumin/Globulin Ratio (1.0-2.8) Chlamy pneumoniae PCR Not detected (Not Detect) Adenovirus (PCR) Not detected (Not Detect) B. pertussis DNA (PCR) Not detected (Not Detecte) B.parapertussis DNA PCR Not detected (Not Detecte) Coronavirus OC43 (PCR) Not detected (Not Detect) Coronavirus HKU1 (PCR) Not detected (Not Detect) Coronavirus 229E (PCR) Not detected (Not Detect) SARS-CoV-2 (PCR) Not detected (Not Detecte) Coronavirus NL63 (PCR) Not detected (Not Detect) Human Metapneumovir PCR Not detected (Not Detect) Influenza Type A (PCR) Not detected (Not Detect) Influenza Type B (PCR) Not detected (Not Detect) M. pneumoniae (PCR) Not detected (Not Detect) Parainfluenza 1 (PCR) Not detected (Not Detect) Parainfluenza 2 (PCR) Not detected (Not Detect) Parainfluenza 3 (PCR) Not detected (Not Detect) Parainfluenza 4 (PCR) Not detected (Not Detect) RSV (PCR) Not detected (Not Detect) Entero/Rhino (PCR) Not detected (Not Detect) Imaging Data Chest x-ray: Radiologist's Impression: PROCEDURE:? XR CHEST 1V ? INDICATIONS:? SOB ? TECHNIQUE:? One view of the chest was acquired.? ? COMPARISON:? [facility], , XR CHEST 1V, 02/18/2022, 13:16. ? FINDINGS:? ? Surgical changes and devices:? None.? ? Lungs and pleura:? Pulmonary vascular congestion and pulmonary edema is seen.? No definite focal infiltrate.? No pleural effusions or pneumothorax.? ? Mediastinum:? Mediastinal contours appear normal.? Heart size is enlarged.? ? Bones and chest wall:? No suspicious bony lesions.? Overlying soft tissues appear unremarkable.? ? IMPRESSION:? Seen finding is suggestive of CHF.? No definite focal infiltrate.? No pleural effusion or pneumothorax. ECG Data Attestation: I personally reviewed and interpreted this ECG as follows: Interpretation: Atrial fibrillation Ventricular rate is 78 Occasional PVC Normal axis QRS Nonspecific ST T wave changes MDM Narrative Medical decision making narrative: Patient's presentation today is somewhat of a mixed picture and could potentially be a COPD exacerbation given his cough and increased sputum production and shortness of breath but also a CHF exacerbation given the finding on his chest x-ray and also has elevated BNP. He states he has a baseline history of COPD and also CHF. He is not on any diuretics. He does take a prostate medication for his BPH. Patient does have inhalers at home. He did diurese here after receiving Lasix. Plan will be is to send him home on both antibiotics and also steroids for the potential COPD issue and also diuretics for CHF. He ambulated around the emergency department and states he feels well. Was not hypoxic. And very minimally tachypneic. Patient expressed understand ing and agree with this plan. Discharge Plan Departure Patient Disposition: Home Clinical Impression: COPD (chronic obstructive pulmonary disease), CHF (congestive heart failure) Instructions: Chronic Obstructive Pulmonary Disease (Alternative Therapy), Congestive Heart Failure (Alternative Therapy) Activity Restrictions/Additional Instructions: I am writing you a prescription for 3 different medications. One of them is an antibiotic. The 2nd is a steroid and the 3rd is a diuretic. All these medications can be started tomorrow because you were given your 1st dose here in the emergency department. I recommend that you continue to take the rest of your medications as directed. Contact your primary doctor for follow-up. Return to the emergency department for new symptoms. Prescriptions: New prednisone 20 mg tablet 20 mg PO DAILY 5 Days Qty: 5 0RF azithromycin 250 mg tablet 250 mg PO DAILY 4 Days Qty: 4 0RF Rx Instructions: start on day 2 of therapy furosemide [Lasix] 20 mg tablet 20 mg PO DAILY 7 Days Qty: 7 0RF No Action terazosin 10 mg capsule 10 mg PO QDAY Qty: 90 3RF clobetasol 0.05 % cream 1 applic TOP DAILY PRN (Reason: Psoriasis) Qty: 30 11RF warfarin 2.5 mg tablet See Rx Instructions .ROUTE .COMPLEX Qty: 110 1RF Dose Instruction: Take 2 tablets by mouth on Wednesday; 1 & 1/2 tablets on Wednesday and 1 tablet all other days or as directed. Rx Instructions: Take 2 tablets by mouth on Wednesday; 1 & 1/2 tablets on Wednesday and 1 tablet all other days or as directed. metoprolol succinate 50 mg tablet extended release 24 hr 50 mg PO BEDTIME Qty: 90 3RF albuterol sulfate 90 mcg/actuation HFA aerosol inhaler 2 puff inhalation Q6H PRN (Reason: shortness of breath or wheezing) Qty: 8.5 11RF ipratropium bromide 17 mcg/actuation HFA aerosol inhaler 2 puff inhalation Q8H Qty: 12.9 11RF albuterol sulfate 90 mcg/actuation HFA aerosol inhaler 1 puff inhalation QID PRN (Reason: shortness of breath or wheezing) Qty: 8.5 3RF ipratropium bromide 17 mcg/actuation HFA aerosol inhaler 1 inh inhalation Q6H PRN (Reason: shortness of breath or wheezing) Qty: 12.9 3RF prednisone 20 mg tablet 40 mg PO DAILY Qty: 20 0RF Rx Instructions: Please take 40 mg daily for the next 5 days, then take 20 for 1-3 days until your ipratropium arrives fluticasone propionate 50 mcg/actuation spray,suspension 1 spray intranasal BID Qty: 16 0RF Rx Instructions: administer into each nostril Referrals: Warren Negron MD [Primary Care Provider] - Stand Alone Forms: Patient Portal/API
[2022-07-14 11:31] LABS: Add Manual Diff / Slide Review NO; Basophils Absolute Auto 100 /uL (0-100); Basophils Percent Auto 0.9 % (0-2); Eosinophils Absolute Auto 200 /uL (0-450); Eosinophils Percent Auto 2.5 % (2-4); Hematocrit 43.1 % (41-53); Hemoglobin 14.1 g/dL (13.5-17.5); Lymphocytes Absolute Auto 1500 /uL (1100-4500); Lymphocytes Percent Auto 20.2 % (25-40); Mean Corpuscular HGB Conc 32.8 % (30-36); Mean Corpuscular Hemoglobin 28.6 PG (26-34); Mean Corpuscular Volume 87.3 fL (80-100); Monocytes Absolute Auto 700 /uL (0-900); Monocytes Percent Auto 9.7 % (3-14); Neutrophils Absolute Auto 5000 /uL (1500-7000); Neutrophils Percent Auto 66.7 % (50-75); Platelet Count 225 X10^3/uL (150-400); Red Blood Cell Count 4.93 X10^6/uL (4.5-5.9); Red Cell Distribution Width 16.2 % (11.6-14.8); White Blood Cell Count 7.6 X10^3/uL (4.5-11.0)
[2022-07-14] MEDS: ALBUTEROL/IPRATROPIUM 3 ML AMPUL INH (11:31)
[2022-07-14] MEDS: methylPREDNISolone 125 MG/2 ML VIAL IV (11:31)
[2022-07-14 11:38] LABS: Prothrombin Time 23.4 SECONDS (10.1-12.7)
[2022-07-14 11:43] LABS: Creatine Kinase 28 U/L (55-170)
[2022-07-14 11:44] LABS: Alanine Aminotransferase 21 IU/L (<50); Albumin 4.2 g/dL (3.5-5.0); Albumin Globulin Ratio 1.2 (1.0-2.8); Alkaline Phosphatase 97 U/L (38-126); Aspartate Aminotransferase 22 IU/L (17-59); BUN Creatinine Ratio 17.3 (6-22); Bilirubin Total 0.8 mg/dL (0.2-1.3); Blood Urea Nitrogen 18 mg/dL (9-20); Calcium 9.2 mg/dL (8.4-10.2); Carbon Dioxide 29 mmol/L (22-32); Chloride 99 mmol/L (98-107); Estimated Glomerular Filt Rate > 60 mL/min (>60); Globulin 3.4 g/dL (1.7-4.1); Glucose 109 mg/dL (80-110); HEMOLYSIS < 15 (0-50); Sodium 136 mmol/L (137-145); Total Protein 7.6 g/dL (6.3-8.2)
[2022-07-14 11:50] LABS: PTT Partial Thromboplastin Tim 40 SECONDS (26-36)
[2022-07-14 11:52] LABS: NT-proBNP (BNP-Adult 18+) 3090 pg/mL (<450)
[2022-07-14 11:55] LABS: Troponin I 0.063 ng/mL (0.01-0.034)
[2022-07-14] MEDS: FUROSEMIDE 60 MG in SODIUM CHLORIDE 0.9% 50 ML 112 MG IV (12:07)
[2022-07-14 12:47] LABS: Adenovirus Not Detected (Not Detect); B. parapertussis Not Detected (Not Detecte); Bordetella pertussis Not Detected (Not Detecte); Chlamydophila pneumoniae Not Detected (Not Detect); Coronavirus 229E Not Detected (Not Detect); Coronavirus HKU1 Not Detected (Not Detect); Coronavirus NL 63 Not Detected (Not Detect); Coronavirus OC43 Not Detected (Not Detect); Human Metapneumovirus Not Detected (Not Detect); Human Rhinovirus/Enterovirus Not Detected (Not Detect); Influenza A Not Detected (Not Detect); Influenza B Not Detected (Not Detect); Mycoplasma pneumoniae Not Detected (Not Detect); Parainfluenza Virus 1 Not Detected (Not Detect); Parainfluenza Virus 2 Not Detected (Not Detect); Parainfluenza Virus 3 Not Detected (Not Detect); Parainfluenza Virus 4 Not Detected (Not Detect); Respiratory Syncytial Virus Not Detected (Not Detect); SARS- CoV-2 Not Detected (Not Detecte)
[2022-07-14 13:33] LABS: Creatine Kinase 27 U/L (55-170)
[2022-07-14 13:46] LABS: Troponin I 0.055 ng/mL (0.01-0.034)
[2022-07-14] MEDS: AZITHROMYCIN 250 MG TABLET 500 MG PO (14:42)
== END 2022-07-14 15:18 | disposition home or self-care (01) ==
PROVIDERS: Emergency Provider Emergency Medicine; PCP Student in an Organized Health Care Education/Training Program
DX: J44.9 Chronic obstructive pulmonary disease, unspecified (principal); I50.9 Heart failure, unspecified; R05.9 Cough, unspecified; I25.10 Atherosclerotic heart disease of native coronary artery without angina pectoris; Z20.822 Contact with and (suspected) exposure to COVID-19
CPT/HCPCS: 36415; 71045; 80053; 82550; 83880; 84484; 85025; 85610; 85730; 87633; 93005; 93010; 94640; 96365; 96375; 99284; J1940; J2930

== ENCOUNTER → 2022-08-21 13:46 | Outpatient (CLI) | payer MEDICARE, SELFPAY ==
--- NOTE | 2022-08-26 10:14 | PM.PFT.1 ---
Pulmonary Function Test Referral & Results Date Patient Seen: 08/21/22 Results: The spirometry demonstrates an FVC of 1.62 L which is 42% of predicted. The FEV1 was measured at 1.02 L which is 37% of predicted. The FEV1/FVC ratio was 63 which is 87% of predicted. Following the administration of bronchodilator there was 45% improvement in FEF 25-75%. Interpretation: This study demonstrates moderately severe obstructive lung disease based on reduction FEV1 although FEV1/FVC ratio is relatively preserved. There is evidence of benefit in small airway flow following bronchodilator as above based on improvement in FEF 25-75% Compared to PFTs performed in July 2020, current study demonstrates a decline in FEV1 which was previously at 51% of predicted currently at 37% of predicted. Previous study did not include bronchodilator Clinical correlation suggested
== END ==
PROVIDERS: PCP Student in an Organized Health Care Education/Training Program; Referring Provider Student in an Organized Health Care Education/Training Program; Visit Provider Student in an Organized Health Care Education/Training Program
DX: J44.9 Chronic obstructive pulmonary disease, unspecified (principal); Z87.891 Personal history of nicotine dependence
CPT/HCPCS: 94060

== ENCOUNTER 2022-10-14 07:25 | Emergency (ER) | payer MEDICARE, SELFPAY ==
[2022-10-14] VITALS (13 sets, daily range): BP systolic 160–189; BP diastolic 72–84; PULSE 78–129; RESP 18–35; TEMP 36.4; O2SAT 91–96; BMI 30.1
--- NOTE | 2022-10-14 07:32 | DI.RAD.S_ITS ---
PROCEDURE: XR CHEST 1V INDICATIONS: Shortness of breath TECHNIQUE: One view of the chest was acquired. COMPARISON: [facility], CR, XR CHEST 1V, 07/14/2022, 11:05. FINDINGS: Surgical changes and devices: Sternal wires Lungs and pleura: Increased pulmonary vascularity. Minimal right effusion. Mediastinum: Mediastinal contours appear normal. Heart size is enlarged. Bones and chest wall: No suspicious bony lesions. Overlying soft tissues appear unremarkable. IMPRESSION: Cardiomegaly with increased vascularity and effusion most suggestive of edema. Underlying areas of pneumonia and/or atelectasis or potentially mass lesion cannot be excluded. Dictated by: Estefanía Moses M.D. on 10/14/2022 at 8:11 Approved by: Estefanía Moses M.D. on 10/14/2022 at 8:12
[2022-10-14 07:50] LABS: Add Manual Diff / Slide Review NO; Basophils Absolute Auto 100 /uL (0-100); Basophils Percent Auto 1.1 % (0-2); Eosinophils Absolute Auto 200 /uL (0-450); Hematocrit 39.4 % (41-53); Hemoglobin 13.2 g/dL (13.5-17.5); Lymphocytes Absolute Auto 1200 /uL (1100-4500); Mean Corpuscular HGB Conc 33.5 % (30-36); Mean Corpuscular Hemoglobin 29.4 PG (26-34); Mean Corpuscular Volume 87.9 fL (80-100); Monocytes Absolute Auto 600 /uL (0-900); Monocytes Percent Auto 9.5 % (3-14); Neutrophils Absolute Auto 4200 /uL (1500-7000); Neutrophils Percent Auto 67.4 % (50-75); Platelet Count 243 X10^3/uL (150-400); Red Blood Cell Count 4.49 X10^6/uL (4.5-5.9); Red Cell Distribution Width 16.9 % (11.6-14.8); White Blood Cell Count 6.2 X10^3/uL (4.5-11.0)
[2022-10-14 07:55] LABS: INR 2.3 (0.9-1.3); Prothrombin Time 26.1 SECONDS (10.1-12.7)
[2022-10-14] MEDS: ALBUTEROL/IPRATROPIUM 3 ML AMPUL INH (07:56)
[2022-10-14 07:58] LABS: PTT Partial Thromboplastin Tim 39 SECONDS (26-36)
[2022-10-14 08:00] LABS: Alanine Aminotransferase 16 IU/L (<50); Albumin 4.2 g/dL (3.5-5.0); Albumin Globulin Ratio 1.4 (1.0-2.8); Alkaline Phosphatase 107 U/L (38-126); Aspartate Aminotransferase 20 IU/L (17-59); BUN Creatinine Ratio 19.5 (6-22); Blood Urea Nitrogen 15 mg/dL (9-20); Calcium 9.4 mg/dL (8.4-10.2); Carbon Dioxide 25 mmol/L (22-32); Chloride 101 mmol/L (98-107); Creatine Kinase 25 U/L (55-170); Estimated Glomerular Filt Rate > 60 mL/min (>60); Globulin 2.9 g/dL (1.7-4.1); Glucose 111 mg/dL (80-110); HEMOLYSIS < 15 (0-50); Lipase 54 U/L (23-300); Potassium 3.7 mmol/L (3.4-5.1); Sodium 138 mmol/L (137-145); Total Protein 7.1 g/dL (6.3-8.2)
--- NOTE | 2022-10-14 08:03 | ED.SOB ---
HPI - SOB/Dyspnea General Chief Complaint: Shortness of Breath/Dyspnea Stated Complaint: Shortness of breath Time Seen by Provider: 10/14/22 07:31 Source: patient Mode of arrival: Family Vehicle Limitations: no limitations History of Present Illness HPI Narrative: This is a 77-year-old male with history of COPD, coronary artery disease with prior CABG, atrial fibrillation on warfarin and CHF. Patient presents with complaint of shortness of breath over several years, he states it was worse as he ran out his albuterol and Atrovent in the last 2 days he also notes that he had a concentrator that someone had given him that he would use at home that broke about a month ago. Patient states a month ago he started getting bad headaches particularly on the right side. Patient states that he was seen at a walk-in clinic was recommended emergency department as he was hypoxic they was given a prescription for doxycycline. He did not go to the emergency department. Patient states he is increasingly short of breath since he ran out of his inhalers. He has had some chest discomfort. He states it seems to be more from when he vomits he describes vomiting up phlegm which is greenish yellow. He states this sometimes happens when he had his headaches but not always. He states headaches used to respond to Tylenol but have not as much. Patient states no vision changes no numbness, tingling or weakness. He denies any fevers. Denies any diarrhea constipation. Denies any swelling in his extremities. Patient did note that his headache started when his concentrate or broke. He states he noted that when he exerts himself at home he has a pulse oximeter and will drop to 88-87% with exertion at improves when he rests. Patient is on terazosin, warfarin, metoprolol, Atrovent and albuterol and clobetasol topically. He has been out of the Atrovent and albuterol. Patient states he is had a prior CABG. No known drug allergies. Quit smoking 10 years ago. Rare alcohol, no illicit. His primary care was Dr. Negron who recently left the area. Related Data Previous Rx's Medication Instructions Recorded albuterol sulfate 90 mcg/actuation 2 puff inhalation Q6H PRN 12/22/21 aerosol inhaler shortness of breath or wheezing #8.5 grams ipratropium bromide 17 2 puff inhalation Q8H #12.9 grams 12/22/21 mcg/actuation HFA aerosol inhaler metoprolol succinate 50 mg 50 mg PO BEDTIME #90 tabs 12/22/21 tablet,extended release 24 hr terazosin 10 mg capsule 10 mg PO QDAY #90 caps 12/30/21 clobetasol 0.05 % topical cream 1 applic topical DAILY PRN 02/09/22 Psoriasis #30 grams fluticasone propionate 50 1 spray intranasal BID #16 grams 02/18/22 mcg/actuation nasal spray,suspension warfarin 2.5 mg tablet See Rx Instructions .Route 09/24/22 .COMPLEX #228 tabs albuterol sulfate 90 mcg/actuation 2 puff inhalation Q4-6H PRN 10/14/22 aerosol inhaler (ProAir HFA) shortness of breath or wheezing #8.5 grams furosemide 40 mg tablet (Lasix) 40 mg PO DAILY #7 tabs 10/14/22 ipratropium bromide 17 2 puff inhalation QID #12.9 grams 10/14/22 mcg/actuation HFA aerosol inhaler (Atrovent HFA) prednisone 10 mg tablets in a dose See Rx Instructions PO .COMPLEX 10/14/22 pack #21 ea Allergies Allergy/AdvReac Type Severity Reaction Status Date / Time No Known Drug Allergies Allergy Verified 07/28/22 09:30 Review of Systems Review of Systems ROS Unobtainable: All systems reviewed & are unremarkable except as noted in HPI and below Patient History Medical History BPH (benign prostatic hyperplasia) (Unknown) Chronic atrial fibrillation (12/14/16) COPD (chronic obstructive pulmonary disease) (Unknown) Essential hypertension (12/14/16) History of CVA (cerebrovascular accident) (Unknown) Hypertrophic cardiomyopathy Psoriasis (Unknown) Stroke (Unknown) Surgical History Hx of angioplasty (1979) Hx of CABG (Unknown) Social History Smoking Status: Former smoker Smoking Status: Former smoker alcohol intake frequency: holidays/special occasions only Substance Use Type: does not use Exam Narrative Exam Narrative: GEN: well nourished, well appearing male, alert and oriented x 3, patient appears to be in mild distress. HEENT: Atraumatic, pupils are equal round reactive to light, extraocular movements are intact, nares are clear, TMs are clear with no fluid. Throat is clear without any exudates, erythema, tonsillar enlargement or uvular deviation, no facial droop. HEART: Regular rate and rhythm without murmur, clicks, rubs. Pulses are equal in upper and lower extremities LUNGS:Lungs clear to auscultation, no wheezes, rales, crackles, chest moves symmetrically ABD:bowel sounds normal, soft, non-tender, no guarding, rebound, rigidity, no masses noted, no hepatosplenomegaly :No CVA tenderness. MSCL: Non-tender, no muscle atrophy, muscles strength 5/5 upper and lower extremities, full range of motion, normal gait NEURO:CN 2-12 intact, sensation normal. SKIN: No erythema, petechiae, no other skin changes. Initial Vital Signs Initial Vital Signs: Vital Signs Pulse Rate 87 10/14/22 07:34 Respiratory Rate 22 10/14/22 07:34 Blood Pressure 189/84 H 10/14/22 07:34 Pulse Oximetry 92 10/14/22 07:34 Course Orders Ordered: ED Orders 10/14/22 07:32 XR chest 1V Stat EKG-12 Lead Stat 10/14/22 07:35 Complete Blood Count AUTO DIFF Stat Comprehensive Metabolic Panel Stat Lipase Stat NT-proBNP (BNP-Adult 18+) Stat PTT Partial Thromboplastin Benny Stat Prothrombin Time INR Stat Troponin & CK Cardiac Panel Stat 10/14/22 08:27 CT head/brain wo con Stat 10/14/22 09:34 Trop I [Troponin I] Stat Discontinued Medications Albuterol (Albuterol 2.5 Mg/3 Ml Neb (Adult)) 2.5 mg INH [id number] DANIEL Last Admin: 10/14/22 09:45 Dose: 2.5 mg Documented By: CODY Albuterol/Ipratropium (Albuterol/Ipratropium 3 Ml Ampul) 3 ml INH NOW ONE Stop: 10/14/22 07:52 Last Admin: 10/14/22 07:56 Dose: 3 ml Documented By: KEITH Furosemide (Furosemide 40 Mg/4 Ml Vial) 40 mg IV NOW ONE Stop: 10/14/22 08:26 Last Admin: 10/14/22 08:50 Dose: 40 mg Documented By: NR Methylprednisolone (Methylprednisolone 125 Mg/2 Ml Vial) 125 mg IV NOW ONE Stop: 10/14/22 08:26 Last Admin: 10/14/22 08:50 Dose: 125 mg Documented By: NR Vital Signs Vital signs: Vital Signs - 8 hr 10/14/22 07:36 10/14/22 08:31 10/14/22 07:34 Temperature 97.6 F Pulse Rate 91 H 79 Respiratory Rate 18 Blood Pressure 189/84 H 189/84 H Pulse Oximetry 91 92 Oxygen Delivery Method Room Air Oxygen Flow Rate 10/14/22 07:34 10/14/22 08:00 10/14/22 08:06 Temperature Pulse Rate 87 78 Respiratory Rate 22 21 Blood Pressure 160/72 H Pulse Oximetry 92 95 Oxygen Delivery Method Oxygen Flow Rate 10/14/22 08:06 10/14/22 09:46 10/14/22 08:37 Temperature Pulse Rate 78 86 91 H Respiratory Rate 20 20 35 H Blood Pressure Pulse Oximetry 92 96 Oxygen Delivery Method Nasal Cannula Oxygen Flow Rate 2 10/14/22 09:00 10/14/22 09:30 10/14/22 10:00 Temperature Pulse Rate 81 86 97 H Respiratory Rate 20 Blood Pressure Pulse Oximetry 96 95 91 Oxygen Delivery Method Oxygen Flow Rate 10/14/22 10:30 10/14/22 11:00 10/14/22 11:30 Temperature Pulse Rate 100 H 129 H 101 H Respiratory Rate Blood Pressure Pulse Oximetry 93 91 93 Oxygen Delivery Method Oxygen Flow Rate MDM - SOB/Dyspnea Lab Data 10/14/22 07:35 10/14/22 07:35 Labs: Lab Results 10/14/22 10/14/22 10/14/22 Range/Units 07:35 07:35 07:35 WBC 6.2 (4.5-11.0) X10^3/uL RBC 4.49 L (4.5-5.9) X10^6/uL Hgb 13.2 L (13.5-17.5) g/dL Hct 39.4 L (41-53) % MCV 87.9 (80-100) fL MCH 29.4 (26-34) PG MCHC 33.5 (30-36) % RDW 16.9 H (11.6-14.8) % Plt Count 243 (150-400) X10^3/uL Neut % (Auto) 67.4 (50-75) % Lymph % (Auto) 19.0 L (25-40) % [place] % (Auto) 9.5 (3-14) % Eos % (Auto) 3.0 (2-4) % Baso % (Auto) 1.1 (0-2) % Neut # (Auto) 4200 (7559-4701) /uL Lymph # (Auto) 1200 (8695-5050) /uL [place] # (Auto) 600 (0-900) /uL Eos # (Auto) 200 (0-450) /uL Baso # (Auto) 100 (0-100) /uL PT 26.1 H (10.1-12.7) SECONDS INR 2.3 H (0.9-1.3) APTT 39 H (26-36) SECONDS Sodium 138 (137-145) mmol/L Potassium 3.7 (3.4-5.1) mmol/L Chloride 101 (98-107) mmol/L Carbon Dioxide 25 (22-32) mmol/L BUN 15 (9-20) mg/dL Creatinine 0.77 (0.66-1.25) mg/dL Estimated GFR > 60 (>60) mL/min BUN/Creatinine Ratio 19.5 (6-22) Glucose 111 H (80-110) mg/dL Calcium 9.4 (8.4-10.2) mg/dL Total Bilirubin 1.0 (0.2-1.3) mg/dL AST 20 (17-59) IU/L ALT 16 (<50) IU/L Alkaline Phosphatase 107 (38-126) U/L Total Creatine Kinase 25 L (55-170) U/L Troponin I 0.045 H (0.01-0.034) ng/mL NT-Pro-B Natriuret Pep 6030 H (<450) pg/mL Total Protein 7.1 (6.3-8.2) g/dL Albumin 4.2 (3.5-5.0) g/dL Globulin 2.9 (1.7-4.1) g/dL Albumin/Globulin Ratio 1.4 (1.0-2.8) Lipase 54 (23-300) U/L 07/19/23 Range/Units 09:34 WBC (4.5-11.0) X10^3/uL RBC (4.5-5.9) X10^6/uL Hgb (13.5-17.5) g/dL Hct (41-53) % MCV (80-100) fL MCH (26-34) PG MCHC (30-36) % RDW (11.6-14.8) % Plt Count (150-400) X10^3/uL Neut % (Auto) (50-75) % Lymph % (Auto) (25-40) % [place] % (Auto) (3-14) % Eos % (Auto) (2-4) % Baso % (Auto) (0-2) % Neut # (Auto) (2992-1650) /uL Lymph # (Auto) (1700-2165) /uL [place] # (Auto) (0-900) /uL Eos # (Auto) (0-450) /uL Baso # (Auto) (0-100) /uL PT (10.1-12.7) SECONDS INR (0.9-1.3) APTT (26-36) SECONDS Sodium (137-145) mmol/L Potassium (3.4-5.1) mmol/L Chloride (98-107) mmol/L Carbon Dioxide (22-32) mmol/L BUN (9-20) mg/dL Creatinine (0.66-1.25) mg/dL Estimated GFR (>60) mL/min BUN/Creatinine Ratio (6-22) Glucose (80-110) mg/dL Calcium (8.4-10.2) mg/dL Total Bilirubin (0.2-1.3) mg/dL AST (17-59) IU/L ALT (<50) IU/L Alkaline Phosphatase (38-126) U/L Total Creatine Kinase (55-170) U/L Troponin I 0.044 H (0.01-0.034) ng/mL NT-Pro-B Natriuret Pep (<450) pg/mL Total Protein (6.3-8.2) g/dL Albumin (3.5-5.0) g/dL Globulin (1.7-4.1) g/dL Albumin/Globulin Ratio (1.0-2.8) Lipase (23-300) U/L Imaging Data CT scan - head: Radiologist's Impression: [address] [address] [address] Scan Report Signed Patient: Pawel Burris MR#: [id number] : 1945 Acct:[id number] Age/Sex: 77 / M Date of Service: 10/14/22 Loc: ED Accession Number: [id number] ?? Procedure: CT head/brain wo con Ordering Provider: Melanie Weiss D.O. PROCEDURE:? CT HEAD/BRAIN WO CON ? INDICATIONS:? headaches x 1 month ? TECHNIQUE:? Noncontrast 4.5 mm thick angled axial sections acquired from the foramen magnum to the vertex, with coronal and sagittal reformats.? For radiation dose reduction, the following was used:? automated exposure control, adjustment of mA and/or kV according to patient size.? ? COMPARISON:? [facility], CT, HEAD WITHOUT CONTRAST, 10/24/2014, 13:14. ? FINDINGS:? Image quality:? Excellent.? ? CSF spaces:? Basal cisterns are patent.? No extra-axial fluid collections.? The ventricles are symmetric in size and shape.? ? Brain:? No intracranial bleeds or masses.? There is cerebral volume loss for age, with resultant ventricular and sulcal prominence.? There are periventricular and deep white matter chronic small vessel ischemic changes.? There is intracranial internal carotid artery atherosclerosis.? ? Skull and face:? Calvarium and visualized facial bones appear intact, without suspicious lesions.? ? Sinuses:? Visualized sinuses and mastoids are clear.? ? IMPRESSION:? ? 1. No acute intracranial process. ? 2. Moderate atrophy and chronic microvascular ischemic changes. ? ? ? Dictated by: Estefanía Moses M.D. on 10/14/2022 at 8:52 ? ? Approved by: Estefanía Moses M.D. on 10/14/2022 at 8:53? Chest x-ray: Radiologist's Impression: [address] [address] XRay Report Signed Patient: Pawel Burris MR#: [id number] : 1945 Acct:[id number] Age/Sex: 77 / M Date of Service: 10/14/22 Loc: ED Accession Number: [id number] ?? Procedure: XR chest 1V Ordering Provider: Ashwin Gill D.O. PROCEDURE:? XR CHEST 1V ? INDICATIONS:? Shortness of breath ? TECHNIQUE:? One view of the chest was acquired.? ? COMPARISON:? [facility], CR, XR CHEST 1V, 07/14/2022, 11:05. ? FINDINGS:? ? Surgical changes and devices:? Sternal wires ? Lungs and pleura:? Increased pulmonary vascularity.? Minimal right effusion. ? Mediastinum:? Mediastinal contours appear normal.? Heart size is enlarged. ? Bones and chest wall:? No suspicious bony lesions.? Overlying soft tissues appear unremarkable.? ? IMPRESSION:? Cardiomegaly with increased vascularity and effusion most suggestive of edema.? Underlying areas of pneumonia and/or atelectasis or potentially mass lesion cannot be excluded. ? ? Dictated by: Estefanía Moses M.D. on 10/14/2022 at 8:11 ? ? Approved by: Estefanía Moses M.D. on 10/14/2022 at 8:12?? ECG Data Attestation: I personally reviewed and interpreted this ECG as follows: Interpretation: Atrial fibrillation rate 80, QRS of [address]TC [address] No acute ST elevation, patient has mild depression particularly and V6 little bit V5. This appears different from 07/14/2022. [facility] Narrative Medical decision making narrative: This is a 77-year-old male who presents with complaint of shortness of breath patient notes sounds like COPD as well as possible CHF history, AFib anticoagulated on warfarin with prior CABG. Patient does drop to 87% with ambulation in the department was tachypneic he has run out of his nebs at home but also had a concentrated that he was using that broke a month ago. Patient does describe headaches for the past month quite severe sometimes with vomiting but sometimes has vomiting not with headaches but by patient's description they started when his concentrate or broke. He has not had any other acute neurologic changes he appreciates. Workup thus far so changes consistent with possible CHF as well as COPD. Patient had DuoNeb here in the department which was helpful. Hemoglobin is 13 he was 14 in June, no leukocytosis, platelets are 243. INR is 2.3, CMP is negative LFTs are appropriate troponins indeterminate but BNP is 6000. Chest x-ray shows cardiomegaly with effusion, edema a potential pneumonia and/or mass lesion. Plan for repeat troponin and EKG at 2:00 a.m.. Patient did have a head CT which shows no acute changes. Although I suspect these maybe headache secondary to low O2. Patient notes that they get better when he is on oxygen. Patient is 87% with ambulation. Patient evaluated by Respiratory does qualify for home O2 concentrator. They are sending this through [employer] with goal to be set up today. Patient would like to be discharged home we are able to set him up with O2 from discharge from the ER plan for prescription for Lasix, albuterol and prednisone he is to continue his doxycycline. We will give a prescription for Atrovent but he states it is too expensive and he orders at through [employer]. Discharge Plan Departure Patient Disposition: Home Clinical Impression: Acute exacerbation of chronic obstructive pulmonary disease, Congestive heart failure, Acute respiratory failure with hypoxia Instructions: DI for Heart Failure, Be a Partner in Your COPD Care Activity Restrictions/Additional Instructions: Please follow-up with your physician. The home health company should be meeting you today at your home to set you up with home O2 between 2-3pm Your breathing issues appear to be your COPD flaring but also UR in congestive heart failure. We are going to treat both today. Use albuterol 2-4 puffs every 4 hours as needed. Use Atrovent as prescribed. Take prednisone once daily until gone. Take Lasix until completed. You may need to continue this medication long-term follow up with your physician. You may continue doxycycline as prescribed. Prescription sent to [facility] in [place]. Please return for new or worsening chest pain, shortness of breath, increasing lightheadedness, passing out, increasing swelling in your extremities or other new or concerning changes. Prescriptions: New furosemide [Lasix] 40 mg tablet 40 mg PO DAILY Qty: 7 0RF prednisone 10 mg tablets,dose pack See Rx Instructions .ROUTE .COMPLEX Qty: 21 0RF Rx Instructions: Take 60 mg p.o. x1 day, then 50 mg p.o. x1 day, then 40 mg p.o. x1 day, then 30 mg p.o. x1 day, then 20 mg p.o. x1 day, then 10 mg p.o. x1 day albuterol sulfate [ProAir HFA] 90 mcg/actuation HFA aerosol inhaler 2 puff inhalation Q4-6H PRN (Reason: shortness of breath or wheezing) Qty: 8.5 1RF Atrovent HFA 17 mcg/actuation HFA aerosol inhaler 2 puff inhalation QID Qty: 12.9 0RF No Action terazosin 10 mg capsule 10 mg PO QDAY Qty: 90 3RF clobetasol 0.05 % cream 1 applic TOP DAILY PRN (Reason: Psoriasis) Qty: 30 11RF warfarin 2.5 mg tablet See Rx Instructions .ROUTE .COMPLEX Qty: 228 3RF Dose Instruction: Take 2 tablets by mouth on Wednesday; 1 & 1/2 tablets on Wednesday and 1 tablet all other days or as directed. Rx Instructions: Take 2 tablets by mouth on Wednesday; 1 & 1/2 tablets on Wednesday and 1 tablet all other days or as directed. metoprolol succinate 50 mg tablet extended release 24 hr 50 mg PO BEDTIME Qty: 90 3RF albuterol sulfate 90 mcg/actuation HFA aerosol inhaler 2 puff inhalation Q6H PRN (Reason: shortness of breath or wheezing) Qty: 8.5 11RF ipratropium bromide 17 mcg/actuation HFA aerosol inhaler 2 puff inhalation Q8H Qty: 12.9 11RF fluticasone propionate 50 mcg/actuation spray,suspension 1 spray intranasal BID Qty: 16 0RF Rx Instructions: administer into each nostril Referrals: Gary Calero MD [Primary Care Provider] - Stand Alone Forms: Patient Portal/API
[2022-10-14 08:11] LABS: NT-proBNP (BNP-Adult 18+) 6030 pg/mL (<450); Troponin I 0.045 ng/mL (0.01-0.034)
--- NOTE | 2022-10-14 08:27 | DI.CT.S_ITS ---
PROCEDURE: CT HEAD/BRAIN WO CON INDICATIONS: headaches x 1 month TECHNIQUE: Noncontrast 4.5 mm thick angled axial sections acquired from the foramen magnum to the vertex, with coronal and sagittal reformats. For radiation dose reduction, the following was used: automated exposure control, adjustment of mA and/or kV according to patient size. COMPARISON: [facility], CT, HEAD WITHOUT CONTRAST, 10/24/2014, 13:14. FINDINGS: Image quality: Excellent. CSF spaces: Basal cisterns are patent. No extra-axial fluid collections. The ventricles are symmetric in size and shape. Brain: No intracranial bleeds or masses. There is cerebral volume loss for age, with resultant ventricular and sulcal prominence. There are periventricular and deep white matter chronic small vessel ischemic changes. There is intracranial internal carotid artery atherosclerosis. Skull and face: Calvarium and visualized facial bones appear intact, without suspicious lesions. Sinuses: Visualized sinuses and mastoids are clear. IMPRESSION: 1. No acute intracranial process. 2. Moderate atrophy and chronic microvascular ischemic changes. Dictated by: Estefanía Moses M.D. on 10/14/2022 at 8:52 Approved by: Estefanía Moses M.D. on 10/14/2022 at 8:53
--- NOTE | 2022-10-14 08:32 | PC.NURSE ---
BUSINESS CONSULTANT Note - Patient unsteady on feet, slightly listing to the right. O2 stats held steady at 92% until we arrived back to the patient's room. Patient's O2 stat began dropping to 87%. Patient began wheezing and was placed on 2L NC
[2022-10-14] MEDS: FUROSEMIDE 40 MG/4 ML VIAL IV (08:50)
[2022-10-14] MEDS: methylPREDNISolone 125 MG/2 ML VIAL IV (08:50)
[2022-10-14] MEDS: ALBUTEROL 2.5 MG/3 ML NEB (ADULT) INH (09:45)
--- NOTE | 2022-10-14 10:00 | PC.NURSE ---
informed provider, pt using urinal at bedside, pulled oxygen out of wall and his oxygen dropped to 86% with just standing.
[2022-10-14 10:02] LABS: Troponin I 0.044 ng/mL (0.01-0.034)
== END 2022-10-14 11:55 | disposition home or self-care (01) ==
PROVIDERS: Emergency Medicine; Emergency Provider Emergency Medicine; PCP Pediatrics
DX: J44.1 Chronic obstructive pulmonary disease with (acute) exacerbation (principal); I50.9 Heart failure, unspecified; J96.01 Acute respiratory failure with hypoxia; Z79.899 Other long term (current) drug therapy; Z79.01 Long term (current) use of anticoagulants; R51.9 Headache, unspecified
CPT/HCPCS: 36415; 70450; 71045; 80053; 82550; 83690; 83880; 84484; 85025; 85610; 85730; 93005; 94640; 96374; 96375; 99284; 99285; J1940; J2930; J7613

== ENCOUNTER → 2022-11-26 11:50 | Outpatient (CLI) | payer MEDICARE, SELFPAY ==
[2022-11-26 13:26] LABS: Alanine Aminotransferase 14 IU/L (<50); Albumin 3.9 g/dL (3.5-5.0); Albumin Globulin Ratio 1.6 (1.0-2.8); Alkaline Phosphatase 91 U/L (38-126); Aspartate Aminotransferase 19 IU/L (17-59); BUN Creatinine Ratio 16.9 (6-22); Bilirubin Total 0.5 mg/dL (0.2-1.3); Blood Urea Nitrogen 12 mg/dL (9-20); Calcium 9.4 mg/dL (8.4-10.2); Carbon Dioxide 31 mmol/L (22-32); Chloride 98 mmol/L (98-107); Estimated Glomerular Filt Rate > 60 mL/min (>60); Globulin 2.5 g/dL (1.7-4.1); Glucose 108 mg/dL (80-110); HEMOLYSIS < 15 (0-50); Sodium 137 mmol/L (137-145); Total Protein 6.4 g/dL (6.3-8.2)
[2022-11-26 13:28] LABS: NT-proBNP (BNP-Adult 18+) 4090 pg/mL (<450)
[2022-11-26 14:01] LABS: Erythrocyte Sedimentation Rate 31 MM/HR (0-15)
[2022-11-26 14:07] LABS: TSH w/ Reflex to FT4 2.74 uIU/mL (0.47-4.68)
== END ==
PROVIDERS: PCP Pediatrics; Referring Provider Pediatrics; Visit Provider Pediatrics
DX: I10 Essential (primary) hypertension (principal); G89.29 Other chronic pain; J44.9 Chronic obstructive pulmonary disease, unspecified; R51.9 Headache, unspecified; Z79.01 Long term (current) use of anticoagulants; I48.20 Chronic atrial fibrillation, unspecified
CPT/HCPCS: 36415; 80053; 83880; 84443; 85651; 86140

== ENCOUNTER 2023-01-06 12:32 | Emergency (ER) | payer MEDICARE, SELFPAY ==
[2023-01-06] VITALS (14 sets, daily range): BP systolic 131–177; BP diastolic 61–84; PULSE 80–103; RESP 12–29; TEMP 36.4–37.1; O2SAT 94–98; BMI 26.6
--- NOTE | 2023-01-06 12:42 | DI.RAD.S_ITS ---
PROCEDURE: XR CHEST 1V INDICATIONS: Shortness of breath TECHNIQUE: One view of the chest was acquired. COMPARISON: [facility], CR, XR CHEST 1V, 10/14/2022, 7:30. FINDINGS: Surgical changes and devices: Sternal wires Lungs and pleura: There is complete opacification of the right hemithorax. Mediastinum: Mediastinal contours appear normal. Heart size is enlarged. Bones and chest wall: No suspicious bony lesions. Overlying soft tissues appear unremarkable. IMPRESSION: Complete right hemithorax opacification suggestive of effusion. Recommend interval follow-up to document resolution exclude presence of underlying mass lesion. Dictated by: Estefanía Moses M.D. on 01/06/2023 at 12:59 Approved by: Estefanía Moses M.D. on 01/06/2023 at 12:59
[2023-01-06 13:01] LABS: Add Manual Diff / Slide Review NO; Basophils Absolute Auto 100 /uL (0-100); Basophils Percent Auto 0.7 % (0-2); Eosinophils Absolute Auto 100 /uL (0-450); Eosinophils Percent Auto 1.1 % (2-4); Hematocrit 37.8 % (41-53); Hemoglobin 12.3 g/dL (13.5-17.5); Lymphocytes Absolute Auto 600 /uL (1100-4500); Lymphocytes Percent Auto 8.2 % (25-40); Mean Corpuscular HGB Conc 32.6 % (30-36); Mean Corpuscular Hemoglobin 28.7 PG (26-34); Mean Corpuscular Volume 88.2 fL (80-100); Monocytes Absolute Auto 500 /uL (0-900); Neutrophils Absolute Auto 6000 /uL (1500-7000); Platelet Count 314 X10^3/uL (150-400); Red Blood Cell Count 4.29 X10^6/uL (4.5-5.9); Red Cell Distribution Width 15.5 % (11.6-14.8); White Blood Cell Count 7.2 X10^3/uL (4.5-11.0)
[2023-01-06 13:04] LABS: INR 1.4 (0.9-1.3); Prothrombin Time 15.7 SECONDS (10.1-12.7)
[2023-01-06 13:09] LABS: Lactate (Lactic Acid) 1.3 mmol/L (0.7-2.1)
[2023-01-06 13:10] LABS: Alanine Aminotransferase 14 IU/L (<50); Albumin Globulin Ratio 1.4 (1.0-2.8); Alkaline Phosphatase 91 U/L (38-126); Aspartate Aminotransferase 19 IU/L (17-59); Bilirubin Total 0.5 mg/dL (0.2-1.3); Blood Urea Nitrogen 15 mg/dL (9-20); Calcium 9.7 mg/dL (8.4-10.2); Carbon Dioxide 29 mmol/L (22-32); Chloride 98 mmol/L (98-107); Estimated Glomerular Filt Rate > 60 mL/min (>60); Globulin 2.8 g/dL (1.7-4.1); Glucose 122 mg/dL (80-110); HEMOLYSIS < 15 (0-50); Potassium 3.8 mmol/L (3.4-5.1); Sodium 136 mmol/L (137-145); Total Protein 6.8 g/dL (6.3-8.2)
--- NOTE | 2023-01-06 13:10 | DI.CT.S_ITS ---
PROCEDURE: CT CHEST W CON INDICATIONS: Dyspnea TECHNIQUE: After the administration of intravenous contrast, 5 mm thick sections acquired from the pulmonary apices to the posterior costophrenic angles. 1 mm axial lung, 5 mm thick coronal and sagittal reformats and 7 mm axial MIP were acquired. For radiation dose reduction, the following was used: automated exposure control, adjustment of mA and/or kV according to patient size. COMPARISON: [facility], CR, XR CHEST 1V, 01/06/2023, 12:45. FINDINGS: Image quality: Excellent. Lungs and pleura: As identified on chest x-ray, there is near complete opacification of the right hemithorax. Areas of pleural fluid as well as superimposed consolidative heterogeneous confluent opacity is present. Areas of air bronchograms appear present within portions of the consolidative opacity.. Mediastinum: Heart size is normal. No pericardial effusion. No mediastinal or hilar adenopathy by size criteria. Thoracic aorta and central pulmonary arteries are normal in size. Esophagus is normal in caliber. No hiatal hernia. Bones and chest wall: No suspicious bony lesions. No vertebral body compression fractures. No axillary or supraclavicular adenopathy by size criteria. Thyroid gland is unremarkable . Abdomen: Visualized upper abdominal solid organs appear normal. Upper abdominal bowel loops are normal in caliber. IMPRESSION: Prominent right effusion with heterogeneous confluent superimposed opacity. The latter can be inside sales account representative of atelectatic lung, as well as pneumonia or other infection or inflammation. However, underlying mass of potential malignant etiology cannot be excluded. Recommend further evaluation after resolution of fluid and/or diagnostic fluid testing. Dictated by: Estefanía Moses M.D. on 01/06/2023 at 13:45 Approved by: Estefanía Moses M.D. on 01/06/2023 at 13:49
[2023-01-06 13:21] LABS: NT-proBNP (BNP-Adult 18+) 3430 pg/mL (<450); Troponin I 0.037 ng/mL (0.01-0.034)
[2023-01-06 13:44] LABS: Adenovirus Not Detected (Not Detect); B. parapertussis Not Detected (Not Detecte); Bordetella pertussis Not Detected (Not Detect); Chlamydophila pneumoniae Not Detected (Not Detect); Coronavirus 229E Not Detected (Not Detect); Coronavirus HKU1 Not Detected (Not Detect); Coronavirus NL 63 Not Detected (Not Detect); Coronavirus OC43 Not Detected (Not Detect); Human Metapneumovirus Not Detected (Not Detect); Human Rhinovirus/Enterovirus Not Detected (Not Detect); Influenza A Not Detected (Not Detect); Influenza B Not Detected (Not Detect); Mycoplasma pneumoniae Not Detected (Not Detect); Parainfluenza Virus 1 Not Detected (Not Detect); Parainfluenza Virus 2 Not Detected (Not Detect); Parainfluenza Virus 3 Not Detected (Not Detect); Parainfluenza Virus 4 Not Detected (Not Detect); Respiratory Syncytial Virus Not Detected (Not Detect); SARS- CoV-2 Not Detected (Not Detecte)
[2023-01-06] MEDS: KETOROLAC 30 MG/ML VIAL 15 MG IV (14:23)
--- NOTE | 2023-01-06 15:18 | ED.SOB ---
HPI - SOB/Dyspnea General Chief Complaint: Shortness of Breath/Dyspnea Stated Complaint: SOB severe headache, chest pain Time Seen by Provider: 01/06/23 13:02 Source: patient Mode of arrival: Ambulatory Limitations: no limitations History of Present Illness HPI Narrative: Patient here for 2 complaints. He is had headache for the past at least 3 months. He has been seen here for the same headache. It is diffuse and global. It keeps him up at night. No syncope. No nausea or vomiting or vision changes. He had CT scan imaging in September for this headache as well. It was unremarkable. Patient states thinks he may have history of congestive heart failure but does not feel like this is CHF. He is had heart surgery and bypass. He denies any chest pain. He does have discomfort when he coughs what she is had for a long time. He is on 2 L nasal cannula continuously and is doing well he does not feel short of breath. Related Data Previous Rx's Medication Instructions Recorded albuterol sulfate 90 mcg/actuation 2 puff inhalation Q6H PRN 12/22/21 aerosol inhaler shortness of breath or wheezing #8.5 grams ipratropium bromide 17 2 puff inhalation Q8H #12.9 grams 12/22/21 mcg/actuation HFA aerosol inhaler metoprolol succinate 50 mg 50 mg PO BEDTIME #90 tabs 12/22/21 tablet,extended release 24 hr clobetasol 0.05 % topical cream 1 applic topical DAILY PRN 02/09/22 Psoriasis #30 grams fluticasone propionate 50 1 spray intranasal BID #16 grams 02/18/22 mcg/actuation nasal spray,suspension warfarin 2.5 mg tablet See Rx Instructions .Route 09/24/22 .COMPLEX #228 tabs albuterol sulfate 90 mcg/actuation 2 puff inhalation Q4-6H PRN 10/14/22 aerosol inhaler (ProAir HFA) shortness of breath or wheezing #8.5 grams furosemide 40 mg tablet (Lasix) 40 mg PO DAILY #7 tabs 10/14/22 ipratropium bromide 17 2 puff inhalation QID #12.9 grams 10/14/22 mcg/actuation HFA aerosol inhaler (Atrovent HFA) DISABLED PARKING PERMIT #1 ea 11/26/22 prednisone 20 mg tablet 20 mg PO DAILY #7 tabs 11/27/22 prednisone 5 mg tablet 5 mg PO DAILY #60 tabs 11/27/22 terazosin 10 mg capsule 10 mg PO QDAY #90 caps 12/10/22 Allergies Allergy/AdvReac Type Severity Reaction Status Date / Time No Known Drug Allergies Allergy Verified 11/26/22 11:16 Review of Systems Review of Systems Narrative: GENERAL: negative chills, fatigue, malaise, fever, sweats. HEENT: negative sinus pain, ear pain, sore throat RESPIRATORY: Positive dyspnea, positive cough CARDIOVASCULAR: negative chest pain, palpitations GASTROINTESTINAL: negative nausea, vomiting, abdominal pain : negative dysuria, frequency, hematuria MUSCULOSKELETAL: negative muscle or bony pain SKIN: negative rash, skin lesions NEUROLOGIC: negative weakness, numbness, positive headache ROS Unobtainable: All systems reviewed & are unremarkable except as noted in HPI and below Patient History Medical History (Updated 01/06/23 @ 15:48 by Chapo Moran MD) Left-sided epistaxis Sinusitis Chronic headache Hypertrophic cardiomyopathy BPH (benign prostatic hyperplasia) (Unknown) History of CVA (cerebrovascular accident) (Unknown) COPD (chronic obstructive pulmonary disease) (Unknown) Psoriasis (Unknown) Stroke (Unknown) Essential hypertension (12/14/16) Chronic atrial fibrillation (12/14/16) Surgical History Hx of angioplasty (1979) Hx of CABG (Unknown) Social History Smoking Status: Former smoker Smoking Status: Former smoker alcohol intake frequency: holidays/special occasions only Substance Use Type: does not use Exam Narrative Exam Narrative: GENERAL: in no distress, not toxic not dyspneic HEAD: Normocephalic. EYES: Pupils equal round ENT: Mucous membranes moist. NECK: Trachea midline. CARDIOVASCULAR: Irregularly irregular rate and rhythm RESPIRATORY: Significant diminished lung sounds on the right. Clear lung sounds on the left. Patient is speaking full sentences. In no respiratory distress. He is on baseline 2 L nasal cannula. GASTROINTESTINAL: Abdomen soft, non-tender EXTREMITIES: No gross deformities. BACK: No flank tenderness. NEURO: AOx4. Clear speech no facial droop light touch intact bilateral face hands and legs. Strong equal food production machine operator. Negative pronator drift. Fast exam is negative SKIN: Warm and dry PSYCH: Not anxious, is cooperative Initial Vital Signs Initial Vital Signs: Vital Signs Temperature 97.6 F 01/06/23 12:40 Pulse Rate 93 H 01/06/23 12:40 Respiratory Rate 24 01/06/23 12:40 Blood Pressure 154/73 H 01/06/23 12:40 Pulse Oximetry 96 01/06/23 12:40 Oxygen Delivery Method Nasal Cannula 01/06/23 12:40 Oxygen Flow Rate 2 01/06/23 12:40 Course Course Additional Information: [address] [address] [address] Scan Report Signed Patient: Pawel Burris MR#: [id number] : 1945 Acct:[id number] Age/Sex: 77 / M Date of Service: 10/14/22 Loc: ED Accession Number: [id number] Procedure: CT head/brain wo con Ordering Provider: Melanie Weiss D.O. PROCEDURE: CT HEAD/BRAIN WO CON INDICATIONS: headaches x 1 month TECHNIQUE: Noncontrast 4.5 mm thick angled axial sections acquired from the foramen magnum to the vertex, with coronal and sagittal reformats. For radiation dose reduction, the following was used: automated exposure control, adjustment of mA and/or kV according to patient size. COMPARISON: [facility], CT, HEAD WITHOUT CONTRAST, 10/24/2014, 13:14. FINDINGS: Image quality: Excellent. CSF spaces: Basal cisterns are patent. No extra-axial fluid collections. The ventricles are symmetric in size and shape. Brain: No intracranial bleeds or masses. There is cerebral volume loss for age, with resultant ventricular and sulcal prominence. There are periventricular and deep white matter chronic small vessel ischemic changes. There is intracranial internal carotid artery atherosclerosis. Skull and face: Calvarium and visualized facial bones appear intact, without suspicious lesions. Sinuses: Visualized sinuses and mastoids are clear. IMPRESSION: 1. No acute intracranial process. 2. Moderate atrophy and chronic microvascular ischemic changes. Dictated by: Estefanía Moses M.D. on 10/14/2022 at 8:52 Approved by: Estefanía Moses M.D. on 10/14/2022 at 8:53 Orders Ordered: ED Orders 01/06/23 12:40 Complete Blood Count AUTO DIFF Stat Comprehensive Metabolic Panel Stat Lactate (Lactic Acid) Stat NT-proBNP (BNP-Adult 18+) Stat Prothrombin Time INR Stat Respiratory Panel (Film Array) Stat Troponin I Stat 01/06/23 12:42 XR chest 1V Stat EKG-12 Lead Stat Measure peak expiratory flow ONCE RT Consult Eval and Treat NOW 01/06/23 13:10 CT chest w con Stat 01/06/23 15:20 Troponin & CK Cardiac Panel Stat Discontinued Medications Ketorolac Tromethamine (Ketorolac 30 Mg/Ml Vial) 15 mg IV NOW ONE Stop: 01/06/23 13:57 Last Admin: 01/06/23 14:23 Dose: 15 mg Documented By: SB Vital Signs Vital signs: Vital Signs - 8 hr 01/06/23 12:40 01/06/23 12:44 01/06/23 12:53 Temperature 97.6 F Pulse Rate 93 H 91 H Respiratory Rate 24 21 Blood Pressure 154/73 H 169/79 H Pulse Oximetry 96 97 Oxygen Delivery Method Nasal Cannula Nasal Cannula Oxygen Flow Rate 2 2 01/06/23 12:53 01/06/23 13:00 01/06/23 13:00 Temperature Pulse Rate 90 89 Respiratory Rate Blood Pressure 177/78 H Pulse Oximetry 96 98 Oxygen Delivery Method Nasal Cannula Nasal Cannula Oxygen Flow Rate 2 2 01/06/23 13:35 01/06/23 13:36 01/06/23 13:36 Temperature Pulse Rate 86 89 Respiratory Rate 24 12 Blood Pressure 153/70 H Pulse Oximetry 97 97 Oxygen Delivery Method Nasal Cannula Nasal Cannula Oxygen Flow Rate 2 2 01/06/23 14:00 01/06/23 14:00 01/06/23 14:28 Temperature Pulse Rate 91 H Respiratory Rate 23 Blood Pressure 173/84 H 147/80 H Pulse Oximetry 97 Oxygen Delivery Method Nasal Cannula Oxygen Flow Rate 2 01/06/23 14:28 01/06/23 14:32 01/06/23 14:32 Temperature Pulse Rate 102 H 103 H Respiratory Rate 29 H 26 H Blood Pressure 148/81 H Pulse Oximetry 97 94 Oxygen Delivery Method Oxygen Flow Rate 01/06/23 15:00 01/06/23 15:01 01/06/23 15:01 Temperature Pulse Rate 86 94 H Respiratory Rate 15 17 Blood Pressure 148/65 H Pulse Oximetry 94 94 Oxygen Delivery Method Nasal Cannula Oxygen Flow Rate 2 01/06/23 15:30 01/06/23 15:30 01/06/23 16:00 Temperature Pulse Rate 88 Respiratory Rate 18 Blood Pressure 161/76 H 131/61 Pulse Oximetry 95 Oxygen Delivery Method Oxygen Flow Rate 01/06/23 16:00 01/06/23 16:24 Temperature 98.7 F Pulse Rate 80 81 Respiratory Rate 19 20 Blood Pressure 138/84 Pulse Oximetry 98 98 Oxygen Delivery Method Room Air Oxygen Flow Rate MDM - SOB/Dyspnea Medical Records Medical records narrative: [address] [address] [address] Scan Report Signed Patient: Pawel Burris MR#: [id number] : 1945 Acct:[id number] Age/Sex: 77 / M Date of Service: 10/14/22 Loc: ED Accession Number: [id number] Procedure: CT head/brain wo con Ordering Provider: Melanie Weiss D.O. PROCEDURE: CT HEAD/BRAIN WO CON INDICATIONS: headaches x 1 month TECHNIQUE: Noncontrast 4.5 mm thick angled axial sections acquired from the foramen magnum to the vertex, with coronal and sagittal reformats. For radiation dose reduction, the following was used: automated exposure control, adjustment of mA and/or kV according to patient size. COMPARISON: [facility], CT, HEAD WITHOUT CONTRAST, 10/24/2014, 13:14. FINDINGS: Image quality: Excellent. CSF spaces: Basal cisterns are patent. No extra-axial fluid collections. The ventricles are symmetric in size and shape. Brain: No intracranial bleeds or masses. There is cerebral volume loss for age, with resultant ventricular and sulcal prominence. There are periventricular and deep white matter chronic small vessel ischemic changes. There is intracranial internal carotid artery atherosclerosis. Skull and face: Calvarium and visualized facial bones appear intact, without suspicious lesions. Sinuses: Visualized sinuses and mastoids are clear. IMPRESSION: 1. No acute intracranial process. 2. Moderate atrophy and chronic microvascular ischemic changes. Dictated by: Estefanía Moses M.D. on 10/14/2022 at 8:52 Approved by: Estefanía Moses M.D. on 10/14/2022 at 8:53 Lab Data 01/06/23 12:40 01/06/23 12:40 Labs: Lab Results 01/06/23 01/06/23 Range/Units 12:40 15:20 WBC 7.2 (4.5-11.0) X10^3/uL RBC 4.29 L (4.5-5.9) X10^6/uL Hgb 12.3 L (13.5-17.5) g/dL Hct 37.8 L (41-53) % MCV 88.2 (80-100) fL MCH 28.7 (26-34) PG MCHC 32.6 (30-36) % RDW 15.5 H (11.6-14.8) % Plt Count 314 (150-400) X10^3/uL Neut % (Auto) 83.0 H (50-75) % Lymph % (Auto) 8.2 L (25-40) % Gray % (Auto) 7.0 (3-14) % Eos % (Auto) 1.1 L (2-4) % Baso % (Auto) 0.7 (0-2) % Neut # (Auto) 6000 (8004-5345) /uL Lymph # (Auto) 600 L (7612-0476) /uL Gray # (Auto) 500 (0-900) /uL Eos # (Auto) 100 (0-450) /uL Baso # (Auto) 100 (0-100) /uL PT 15.7 H (10.1-12.7) SECONDS INR 1.4 H (0.9-1.3) Sodium 136 L (137-145) mmol/L Potassium 3.8 (3.4-5.1) mmol/L Chloride 98 (98-107) mmol/L Carbon Dioxide 29 (22-32) mmol/L BUN 15 (9-20) mg/dL Creatinine 0.60 L (0.66-1.25) mg/dL Estimated GFR > 60 (>60) mL/min BUN/Creatinine Ratio 25.0 H (6-22) Glucose 122 H (80-110) mg/dL Lactate 1.3 (0.7-2.1) mmol/L Calcium 9.7 (8.4-10.2) mg/dL Total Bilirubin 0.5 (0.2-1.3) mg/dL AST 19 (17-59) IU/L ALT 14 (<50) IU/L Alkaline Phosphatase 91 (38-126) U/L Total Creatine Kinase < 20 L (55-170) U/L Troponin I 0.037 H 0.039 H (0.01-0.034) ng/mL NT-Pro-B Natriuret Pep 3430 H (<450) pg/mL Total Protein 6.8 (6.3-8.2) g/dL Albumin 4.0 (3.5-5.0) g/dL Globulin 2.8 (1.7-4.1) g/dL Albumin/Globulin Ratio 1.4 (1.0-2.8) Chlamy pneumoniae PCR Not detected (Not Detect) Adenovirus (PCR) Not detected (Not Detect) B.parapertussis DNA PCR Not detected (Not Detecte) Coronavirus OC43 (PCR) Not detected (Not Detect) Coronavirus HKU1 (PCR) Not detected (Not Detect) Coronavirus 229E (PCR) Not detected (Not Detect) SARS-CoV-2 (PCR) Not detected (Not Detecte) Coronavirus NL63 (PCR) Not detected (Not Detect) Human Metapneumovir PCR Not detected (Not Detect) Influenza Type A (PCR) Not detected (Not Detect) Influenza Type B (PCR) Not detected (Not Detect) M. pneumoniae (PCR) Not detected (Not Detect) Parainfluenza 1 (PCR) Not detected (Not Detect) Parainfluenza 2 (PCR) Not detected (Not Detect) Parainfluenza 3 (PCR) Not detected (Not Detect) Parainfluenza 4 (PCR) Not detected (Not Detect) RSV (PCR) Not detected (Not Detect) Entero/Rhino (PCR) Not detected (Not Detect) Imaging Data Chest x-ray: Radiologist's Impression: [address] [address] XRay Report Signed Patient: Pawel Burris MR#: [id number] : 1945 Acct:[id number] Age/Sex: 77 / M Date of Service: 01/06/23 Loc: ED Accession Number: [id number] Procedure: XR chest 1V Ordering Provider: Chapo Moran MD PROCEDURE: XR CHEST 1V INDICATIONS: Shortness of breath TECHNIQUE: One view of the chest was acquired. COMPARISON: [facility], , XR CHEST 1V, 10/14/2022, 7:30. FINDINGS: Surgical changes and devices: Sternal wires Lungs and pleura: There is complete opacification of the right hemithorax. Mediastinum: Mediastinal contours appear normal. Heart size is enlarged. Bones and chest wall: No suspicious bony lesions. Overlying soft tissues appear unremarkable. IMPRESSION: Complete right hemithorax opacification suggestive of effusion. Recommend interval follow-up to document resolution exclude presence of underlying mass lesion. Dictated by: Estefanía Moses M.D. on 01/06/2023 at 12:59 Approved by: Estefanía Moses M.D. on 01/06/2023 at 12:59 CT scan - chest: Radiologist's Impression: [address] [address] [address] Scan Report Signed Patient: Pawel Burris MR#: [id number] : 1945 Acct:[id number] Age/Sex: 77 / M Date of Service: 01/06/23 Loc: ED Accession Number: [id number] Procedure: CT chest w con Ordering Provider: Chapo Moran MD PROCEDURE: CT CHEST W CON INDICATIONS: Dyspnea TECHNIQUE: After the administration of intravenous contrast, 5 mm thick sections acquired from the pulmonary apices to the posterior costophrenic angles. 1 mm axial lung, 5 mm thick coronal and sagittal reformats and 7 mm axial MIP were acquired. For radiation dose reduction, the following was used: automated exposure control, adjustment of mA and/or kV according to patient size. COMPARISON: [facility], CR, XR CHEST 1V, 01/06/2023, 12:45. FINDINGS: Image quality: Excellent. Lungs and pleura: As identified on chest x-ray, there is near complete opacification of the right hemithorax. Areas of pleural fluid as well as superimposed consolidative heterogeneous confluent opacity is present. Areas of air bronchograms appear present within portions of the consolidative opacity.. Mediastinum: Heart size is normal. No pericardial effusion. No mediastinal or hilar adenopathy by size criteria. Thoracic aorta and central pulmonary arteries are normal in size. Esophagus is normal in caliber. No hiatal hernia. Bones and chest wall: No suspicious bony lesions. No vertebral body compression fractures. No axillary or supraclavicular adenopathy by size criteria. Thyroid gland is unremarkable . Abdomen: Visualized upper abdominal solid organs appear normal. Upper abdominal bowel loops are normal in caliber. IMPRESSION: Prominent right effusion with heterogeneous confluent superimposed opacity. The latter can be outside industrial sales representative of atelectatic lung, as well as pneumonia or other infection or inflammation. However, underlying mass of potential malignant etiology cannot be excluded. Recommend further evaluation after resolution of fluid and/or diagnostic fluid testing. Dictated by: Estefanía Moses M.D. on 01/06/2023 at 13:45 Approved by: Estefanía Moses M.D. on 01/06/2023 at 13:49 [facility] Narrative Medical decision making narrative: Patient here for 2 complaints. He is had headache for the past at least 3 months. He has been seen here for the same headache. It is diffuse and global. It keeps him up at night. No syncope. No nausea or vomiting or vision changes. He had CT scan imaging in September for this headache as well. It was unremarkable. Patient states thinks he may have history of congestive heart failure but does not feel like this is CHF. He is had heart surgery and bypass. He denies any chest pain. He does have discomfort when he coughs what she is had for a long time. He is on 2 L nasal cannula continuously and is doing well he does not feel short of breath. Patient has history of CABG, atrial fibrillation on warfarin and CHF. As well as COPD After history and exam CBC CMP troponin BNP chest x-ray CT chest EKG [facility] CC: Headache short of breath Complicating co-morbidities: CABG COPD AFib CHF Data collected from: Patient Medical records reviewed: ER visit here October 14, 2022 Differential considered: Includes but not limited to migraine headache COPD CHF DE non-STEMI intracranial bleed lung mass cranial mass Exam documented above, pertinent findings include: Diminished right lung sounds Lab Test results independently reviewed as above. Pertinent findings: WBC 7.2 hemoglobin 12.3 INR 1.4 sodium 136 potassium 3.8 bicarb 29 BUN 15 creatinine 0.6 GFR greater than 60 glucose 122 AST 19 ALT 14 Troponin 0.037 and 0.039 BNP 3430 Independently reviewed EKG atrial fibrillation rate [address] elevation or depression Imaging studies independently reviewed: Chest x-ray complete right hemithorax opacification suggestive of effusion. Recommend interval follow up to document resolution exclude presence of underlying mass lesion CT chest prominent right effusion with heterogeneous confluence superimposed opacity. Can not exclude cancer process Consultations: 3:19 p.m.. Spoke with Pulmonary Services on-call for us Dr. Zuñiga, he is reviewed patient's CT scan imaging and his office will call patient this week to get him in the office for urgent workup. 3:35 p.m.. Spoke with cardiology services Dr. Joao Mendoza, [facility] on-call, at this time troponin likely his baseline. Would not pursue this as cardiac problem. No heparinization or urgent echocardiogram. This could be done outpatient with echocardiogram. Treatments: Toradol Re-evaluations: 3:00 p.m.. Headache has resolved. Patient feeling much better. He is on baseline 2 L nasal cannula does not feel short of breath. He does not want to be admitted. I will call Pulmonary Service for follow up regarding lung findings today. Patient in no respiratory distress. Return precautions reviewed with him.. Patient states he does not want be admitted. He does not feel short of breath. He is mostly here because of headache 3:20 p.m.. Awaiting for repeat troponin levels. Patient in no distress. Discussion: Appropriate for discharge home. Laboratory studies and imaging reviewed. I did review with pulmonary service and he will have urgent follow up with pulmonary services. Heart enzymes are baseline elevated. This is not new. I have reviewed past troponins and they have always been elevated. Not toxic or dyspneic at discharge. Patient desires discharge home. Return precautions reviewed with him. No repeat CT scan head indicated. Just had 1 a few months ago. This is the same headache he is had since then. Patient has chronic elevation of troponin. This is seen in June this 2022 as well as September of this 2022 both with ER visits, both times discharged home. BNP is at baseline as well. Diagnosis: Headache/pleural effusion Discharge Plan Departure Patient Disposition: Home Clinical Impression: Chronic atrial fibrillation, Pleural effusion, Chronic daily headache Instructions: DI for Atrial Fibrillation, DI for Headache, DI for Pleural Effusion Activity Restrictions/Additional Instructions: Continue your home medications. Pulmonary Services, Dr. Zuñiga, will be calling you from his office for immediate urgent follow up regarding the abnormality with your right lung. Please see your family doctor for re-evaluation of your headache and also for scheduling outpatient echocardiogram for your heart. Return if worse if any questions or concerns. Blood work for your heart his chronically elevated. This is not new. Prescriptions: No Action clobetasol 0.05 % cream 1 applic TOP DAILY PRN (Reason: Psoriasis) Qty: 30 11RF warfarin 2.5 mg tablet See Rx Instructions .ROUTE .COMPLEX Qty: 228 3RF Dose Instruction: Take 2 tablets by mouth on Wednesday; 1 & 1/2 tablets on Wednesday and 1 tablet all other days or as directed. Rx Instructions: Take 2 tablets by mouth on Wednesday; 1 & 1/2 tablets on Wednesday and 1 tablet all other days or as directed. prednisone 20 mg tablet 20 mg PO DAILY Qty: 7 0RF Rx Instructions: take po for 7 days. prednisone 5 mg tablet 5 mg PO DAILY Qty: 60 1RF Rx Instructions: Take the 20mg for 7 days, then begin the 5mg tabs. terazosin 10 mg capsule 10 mg PO QDAY Qty: 90 3RF metoprolol succinate 50 mg tablet extended release 24 hr 50 mg PO BEDTIME Qty: 90 3RF albuterol sulfate 90 mcg/actuation HFA aerosol inhaler 2 puff inhalation Q6H PRN (Reason: shortness of breath or wheezing) Qty: 8.5 11RF ipratropium bromide 17 mcg/actuation HFA aerosol inhaler 2 puff inhalation Q8H Qty: 12.9 11RF (DME) DISABLED PARKING PERMIT See Rx Instructions .ROUTE .MEDSUPPLY Qty: 1 0RF Rx Instructions: I FIND THIS PATIENT TO BE MEDICALLY DISABLED AND QUALIFIED FOR DISABLE PARKING INDICATED, AND SIGNED ON THE ACCOMPANYING 1001 Menus APPLICATION FOR INDIVIDUALS fluticasone propionate 50 mcg/actuation spray,suspension 1 spray intranasal BID Qty: 16 0RF Rx Instructions: administer into each nostril furosemide [Lasix] 40 mg tablet 40 mg PO DAILY Qty: 7 0RF albuterol sulfate [ProAir HFA] 90 mcg/actuation HFA aerosol inhaler 2 puff inhalation Q4-6H PRN (Reason: shortness of breath or wheezing) Qty: 8.5 1RF Atrovent HFA 17 mcg/actuation HFA aerosol inhaler 2 puff inhalation QID Qty: 12.9 0RF Referrals: Milind Zuñiga MD [Physician] - Gary Calero MD [Primary Care Provider] - Stand Alone Forms: Patient Portal/API
[2023-01-06 15:36] LABS: Creatine Kinase < 20 U/L (55-170)
[2023-01-06 15:49] LABS: Troponin I 0.039 ng/mL (0.01-0.034)
== END 2023-01-06 16:26 | disposition home or self-care (01) ==
PROVIDERS: Emergency Provider Emergency Medicine; PCP Pediatrics
DX: I48.20 Chronic atrial fibrillation, unspecified (principal); J90 Pleural effusion, not elsewhere classified; R51.9 Headache, unspecified; Z79.899 Other long term (current) drug therapy; Z79.01 Long term (current) use of anticoagulants
CPT/HCPCS: 71045; 71260; 80053; 82550; 83605; 83880; 84484; 85025; 85610; 87633; 93005; 96374; 99284; 99285; J1885; Q9967

== ENCOUNTER → 2023-01-07 15:13 | Outpatient (CLI) | payer MEDICARE, SELFPAY ==
[2023-01-07 22:04] LABS: Body Fluid Appearance HAZY; Body Fluid Clotted? NO CLOTS PRESENT; Body Fluid Color YELLOW
[2023-01-07 22:05] LABS: Body Fluid Red Blood Cells 1027 /uL; Body Fluid Tot Nucleated Cells 572 /uL; Eosinophils Body Fluid 3 %; Mononuclear WBC Body Fluid 92 %; Polynuclear WBC Body Fluid 5 %
== END ==
PROVIDERS: PCP Pediatrics; Visit Provider Internal Medicine
DX: J90 Pleural effusion, not elsewhere classified (principal); R51.9 Headache, unspecified
CPT/HCPCS: 32555; 87070; 87075; 87205; 89051; 99215

== ENCOUNTER 2023-01-14 16:29 | Emergency (ER) | payer MEDICARE, SELFPAY ==
[2023-01-14] VITALS (13 sets, daily range): BP systolic 155–192; BP diastolic 70–95; PULSE 79–108; RESP 28–40; TEMP 36.4–37; O2SAT 92–98; BMI 26.6
--- NOTE | 2023-01-14 16:39 | DI.RAD.S_ITS ---
PROCEDURE: XR CHEST 1V INDICATIONS: Chest pain TECHNIQUE: One view of the chest was acquired. COMPARISON: [facility], CR, XR CHEST 1V, 01/06/2023, 12:45. FINDINGS: Surgical changes and devices: Median sternotomy wires are present and appear intact. Lungs and pleura: Stable appearance of complete opacification the right hemithorax. Chronic appearing diffuse interstitial prominence of the left lung, unchanged. No new focal consolidation. Mediastinum: Cardiomediastinal contours remain stable. Heart size appears enlarged Bones and chest wall: No suspicious bony lesions. Overlying soft tissues appear unremarkable. IMPRESSION: Stable appearance of complete right hemithorax opacification suggestive of effusion versus sequela of prior resection of the right lung. Recommend surgical history correlation. No new, acute airspace opacities identified on the left. Dictated by: Tejas Mason M.D. on 01/14/2023 at 18:23 Approved by: Tejas Mason M.D. on 01/14/2023 at 18:25
--- NOTE | 2023-01-14 16:54 | ED.GENADULT ---
HPI - General Adult <Ashwin Gill DO - Last Filed: 01/20/23 17:59> General Chief complaint: Shortness of Breath/Dyspnea Stated complaint: head pain/chest pain/tight chest Time Seen by Provider: 01/14/23 16:38 Source: patient Mode of arrival: Ambulatory History of Present Illness HPI narrative: Patient is a 77-year-old male. He is here for evaluation of a headache. He states he is had daily headaches for ?years? potentially greater than 10 years. He is also here for chest tightness. He does wear oxygen at home. He states he has a history of COPD. He was difficult to ascertain whether or not his chest tightness is actually worse than normal. He states he is here for his headache. He states he is seen multiple different providers for his headache. Does not have a specific diagnosis. Takes no medications. He tried to contact his primary doctor's office today. Apparently the primary provider who he has been seeing in the past is no longer there and they could get him in to see somebody new but it would be a month. He also tried to contact the validation technician office. He was seen here in the emergency department approximately 10 days ago for very similar symptoms today. He was subsequently seen by pulmonology. Had a thoracentesis with removal of 1.5 L. He states he trying to call to get the results of this what she was told would be back on Wednesday this week however he could not get a hold of anyone. Related Data Previous Rx's Medication Instructions Recorded albuterol sulfate 90 mcg/actuation 2 puff inhalation Q6H PRN 12/22/21 aerosol inhaler shortness of breath or wheezing #8.5 grams ipratropium bromide 17 2 puff inhalation Q8H #12.9 grams 12/22/21 mcg/actuation HFA aerosol inhaler metoprolol succinate 50 mg 50 mg PO BEDTIME #90 tabs 12/22/21 tablet,extended release 24 hr clobetasol 0.05 % topical cream 1 applic topical DAILY PRN 02/09/22 Psoriasis #30 grams fluticasone propionate 50 1 spray intranasal BID #16 grams 02/18/22 mcg/actuation nasal spray,suspension warfarin 2.5 mg tablet See Rx Instructions .Route 09/24/22 .COMPLEX #228 tabs albuterol sulfate 90 mcg/actuation 2 puff inhalation Q4-6H PRN 10/14/22 aerosol inhaler (ProAir HFA) shortness of breath or wheezing #8.5 grams furosemide 40 mg tablet (Lasix) 40 mg PO DAILY #7 tabs 10/14/22 ipratropium bromide 17 2 puff inhalation QID #12.9 grams 10/14/22 mcg/actuation HFA aerosol inhaler (Atrovent HFA) DISABLED PARKING PERMIT #1 ea 11/26/22 prednisone 20 mg tablet 20 mg PO DAILY #7 tabs 11/27/22 prednisone 5 mg tablet 5 mg PO DAILY #60 tabs 11/27/22 terazosin 10 mg capsule 10 mg PO QDAY #90 caps 12/10/22 azithromycin 250 mg tablet See Rx Instructions PO .COMPLEX #6 01/08/23 tabs oxycodone 5 mg capsule 5 mg PO Q6H PRN pain #120 caps 01/15/23 sumatriptan succinate 50 mg tablet 50 mg PO ONCE headache #20 tabs 01/19/23 Allergies Allergy/AdvReac Type Severity Reaction Status Date / Time No Known Drug Allergies Allergy Verified 01/19/23 15:20 Review of Systems <Ashwin Gill DO - Last Filed: 01/20/23 17:59> Review of Systems ROS Unobtainable: All systems reviewed & are unremarkable except as noted in HPI and below Patient History <Ashwin Gill DO - Last Filed: 01/20/23 17:59> Medical History (Updated 01/18/23 @ 23:03 by Maurisio Lofton MD) Left-sided epistaxis Sinusitis Chronic headache Hypertrophic cardiomyopathy BPH (benign prostatic hyperplasia) (Unknown) History of CVA (cerebrovascular accident) (Unknown) COPD (chronic obstructive pulmonary disease) (Unknown) Psoriasis (Unknown) Stroke (Unknown) Essential hypertension (12/14/16) Chronic atrial fibrillation (12/14/16) Surgical History Hx of angioplasty (1979) Hx of CABG (Unknown) Social History Smoking Status: Former smoker Smoking Status: Former smoker alcohol intake frequency: holidays/special occasions only Substance Use Type: does not use Exam <Ashwin Gill DO - Last Filed: 01/20/23 17:59> Initial Vital Signs Initial Vital Signs: Vital Signs Temperature 97.6 F 01/14/23 16:38 Pulse Rate 108 H 01/14/23 16:38 Respiratory Rate 36 H 01/14/23 16:38 Blood Pressure 192/95 H 01/14/23 16:38 Pulse Oximetry 92 01/14/23 16:38 Oxygen Delivery Method Nasal Cannula 01/14/23 16:38 Oxygen Flow Rate 2 01/14/23 16:38 Const General: comfortable HENMT Head: normal to inspection and normocephalic Resp Effort & Inspection: not labored, no respiratory distress and tachypneic Other: Decreased breath sounds on the right. No wheezing. Cardio Rate: regular rate Rhythm: regular rhythm GI Inspection: normal to inspection and non-distended Palpation: soft and No tender Skin General: no rashes or lesions noted Neuro General: patient alert and patient awake Extrem General: No edema <Kb Hines DO - Last Filed: 01/14/23 19:50> Initial Vital Signs Initial Vital Signs: Vital Signs Temperature 97.6 F 01/14/23 16:38 Pulse Rate 108 H 01/14/23 16:38 Respiratory Rate 36 H 01/14/23 16:38 Blood Pressure 192/95 H 01/14/23 16:38 Pulse Oximetry 92 01/14/23 16:38 Oxygen Delivery Method Nasal Cannula 01/14/23 16:38 Oxygen Flow Rate 2 01/14/23 16:38 Course <Ashwin Gill DO - Last Filed: 01/20/23 17:59> Orders Ordered: Discontinued Medications Ketorolac Tromethamine (Ketorolac 30 Mg/Ml Vial) 30 mg IV NOW ONE Stop: 01/14/23 16:54 Last Admin: 01/14/23 17:09 Dose: 30 mg Documented By: JENNIFER Vital Signs Vital signs: Vital Signs - 8 hr 01/14/23 16:38 01/14/23 16:45 01/14/23 17:00 Temperature 97.6 F Pulse Rate 108 H 95 H 89 Respiratory Rate 36 H 40 H 37 H Blood Pressure 192/95 H Pulse Oximetry 92 97 96 Oxygen Delivery Method Nasal Cannula Oxygen Flow Rate 2 01/14/23 17:01 01/14/23 17:01 01/14/23 17:30 Temperature Pulse Rate 90 82 Respiratory Rate 31 H 39 H Blood Pressure 183/84 H Pulse Oximetry 96 95 Oxygen Delivery Method Oxygen Flow Rate 01/14/23 17:31 01/14/23 17:31 01/14/23 18:00 Temperature Pulse Rate 89 82 Respiratory Rate 28 H Blood Pressure 160/70 H Pulse Oximetry 95 95 Oxygen Delivery Method Oxygen Flow Rate 01/14/23 18:00 01/14/23 18:30 01/14/23 18:31 Temperature Pulse Rate 79 84 Respiratory Rate 30 H 29 H Blood Pressure 161/75 H Pulse Oximetry 96 96 Oxygen Delivery Method Oxygen Flow Rate 01/14/23 18:31 01/14/23 19:00 01/14/23 19:13 Temperature Pulse Rate 80 82 Respiratory Rate 28 H 32 H Blood Pressure 162/74 H Pulse Oximetry 98 98 Oxygen Delivery Method Oxygen Flow Rate 01/14/23 19:13 01/14/23 19:30 01/14/23 19:30 Temperature Pulse Rate 85 Respiratory Rate 31 H Blood Pressure 155/77 H 165/74 H Pulse Oximetry 98 Oxygen Delivery Method Oxygen Flow Rate <Kb Hines, - Last Filed: 01/14/23 19:50> Orders Ordered: Discontinued Medications Ketorolac Tromethamine (Ketorolac 30 Mg/Ml Vial) 30 mg IV NOW ONE Stop: 01/14/23 16:54 Last Admin: 01/14/23 17:09 Dose: 30 mg Documented By: JENNIFER Vital Signs Vital signs: Vital Signs - 8 hr 01/14/23 16:38 01/14/23 16:45 01/14/23 17:00 Temperature 97.6 F Pulse Rate 108 H 95 H 89 Respiratory Rate 36 H 40 H 37 H Blood Pressure 192/95 H Pulse Oximetry 92 97 96 Oxygen Delivery Method Nasal Cannula Oxygen Flow Rate 2 01/14/23 17:01 01/14/23 17:01 01/14/23 17:30 Temperature Pulse Rate 90 82 Respiratory Rate 31 H 39 H Blood Pressure 183/84 H Pulse Oximetry 96 95 Oxygen Delivery Method Oxygen Flow Rate 01/14/23 17:31 01/14/23 17:31 01/14/23 18:00 Temperature Pulse Rate 89 82 Respiratory Rate 28 H Blood Pressure 160/70 H Pulse Oximetry 95 95 Oxygen Delivery Method Oxygen Flow Rate 01/14/23 18:00 01/14/23 18:30 01/14/23 18:31 Temperature Pulse Rate 79 84 Respiratory Rate 30 H 29 H Blood Pressure 161/75 H Pulse Oximetry 96 96 Oxygen Delivery Method Oxygen Flow Rate 01/14/23 18:31 01/14/23 19:00 01/14/23 19:13 Temperature Pulse Rate 80 82 Respiratory Rate 28 H 32 H Blood Pressure 162/74 H Pulse Oximetry 98 98 Oxygen Delivery Method Oxygen Flow Rate 01/14/23 19:13 01/14/23 19:30 01/14/23 19:30 Temperature Pulse Rate 85 Respiratory Rate 31 H Blood Pressure 155/77 H 165/74 H Pulse Oximetry 98 Oxygen Delivery Method Oxygen Flow Rate Medical Decision Making <Ashwin Gill, DO - Last Filed: 01/20/23 17:59> Medical Records Medical records reviewed: Yes I reviewed the patient's medical records. Lab Data Lab results reviewed: Yes I reviewed the patient's lab results. 01/14/23 16:45 01/14/23 16:45 Labs: Lab Results 01/14/23 Range/Units 16:45 WBC 6.9 (4.5-11.0) X10^3/uL RBC 4.15 L (4.5-5.9) X10^6/uL Hgb 12.1 L (13.5-17.5) g/dL Hct 37.0 L (41-53) % MCV 89.2 (80-100) fL MCH 29.1 (26-34) PG MCHC 32.6 (30-36) % RDW 15.9 H (11.6-14.8) % Plt Count 341 (150-400) X10^3/uL Neut % (Auto) 76.7 H (50-75) % Lymph % (Auto) 11.7 L (25-40) % Angelina % (Auto) 8.4 (3-14) % Eos % (Auto) 2.1 (2-4) % Baso % (Auto) 1.1 (0-2) % Neut # (Auto) 5300 (3980-9926) /uL Lymph # (Auto) 800 L (0648-0200) /uL Angelina # (Auto) 600 (0-900) /uL Eos # (Auto) 100 (0-450) /uL Baso # (Auto) 100 (0-100) /uL PT 40.9 H D (10.1-12.7) SECONDS INR 3.5 H (0.9-1.3) Sodium 135 L (137-145) mmol/L Potassium 3.8 (3.4-5.1) mmol/L Chloride 98 (98-107) mmol/L Carbon Dioxide 29 (22-32) mmol/L BUN 11 (9-20) mg/dL Creatinine 0.62 L (0.66-1.25) mg/dL Estimated GFR > 60 (>60) mL/min BUN/Creatinine Ratio 17.7 (6-22) Glucose 118 H (80-110) mg/dL Calcium 9.7 (8.4-10.2) mg/dL Magnesium 1.8 (1.6-2.3) mg/dL Total Bilirubin 0.6 (0.2-1.3) mg/dL AST 18 (17-59) IU/L ALT 14 (<50) IU/L Alkaline Phosphatase 84 (38-126) U/L Total Creatine Kinase < 20 L (55-170) U/L Troponin I 0.053 H (0.01-0.034) ng/mL NT-Pro-B Natriuret Pep 5650 H (<450) pg/mL Total Protein 6.8 (6.3-8.2) g/dL Albumin 3.9 (3.5-5.0) g/dL Globulin 2.9 (1.7-4.1) g/dL Albumin/Globulin Ratio 1.3 (1.0-2.8) Imaging Data Chest x-ray: Radiologist's Impression: PROCEDURE: XR CHEST 1V INDICATIONS: Chest pain TECHNIQUE: One view of the chest was acquired. COMPARISON: [facility], , XR CHEST 1V, 01/06/2023, 12:45. FINDINGS: Surgical changes and devices: Median sternotomy wires are present and appear intact. Lungs and pleura: Stable appearance of complete opacification the right hemithorax. Chronic appearing diffuse interstitial prominence of the left lung, unchanged. No new focal consolidation. Mediastinum: Cardiomediastinal contours remain stable. Heart size appears enlarged Bones and chest wall: No suspicious bony lesions. Overlying soft tissues appear unremarkable. IMPRESSION: Stable appearance of complete right hemithorax opacification suggestive of effusion versus sequela of prior resection of the right lung. Recommend surgical history correlation. No new, acute airspace opacities identified on the left. ECG Data Attestation: I personally reviewed and interpreted this ECG as follows: Interpretation: Atrial fibrillation Ventricular rate 95 Occasional PVCs LVH Left axis deviation MDM Narrative Medical decision making narrative: Unsure as to what new symptoms the patient has today they brought him into the emergency department. He is complaining of a headache and chest tightness and shortness of breath which appear to have been there for years. Does not appear that any of the symptoms are necessarily new or worse today. I did review the patient's medical record. He did recently have a thoracentesis of his right lung. I did discuss the case with the validation technician who did see him during that time. There was concern about a mass in his right hilum. Given his headache validation technician recommended CT scan with contrast to evaluate for potential metastasis. The patient is unable to lay flat for the MRI because of his shortness of breath. The CT scan would be the next best option. After Toradol patient states that his headache is improved. He is on his baseline home oxygen need. Care turned over to Dr. iHnes to follow-up on head CT and disposition. <Kb Hines, DO - Last Filed: 01/14/23 19:50> Lab Data Labs: Lab Results 01/14/23 Range/Units 16:45 WBC 6.9 (4.5-11.0) X10^3/uL RBC 4.15 L (4.5-5.9) X10^6/uL Hgb 12.1 L (13.5-17.5) g/dL Hct 37.0 L (41-53) % MCV 89.2 (80-100) fL MCH 29.1 (26-34) PG MCHC 32.6 (30-36) % RDW 15.9 H (11.6-14.8) % Plt Count 341 (150-400) X10^3/uL Neut % (Auto) 76.7 H (50-75) % Lymph % (Auto) 11.7 L (25-40) % Angelina % (Auto) 8.4 (3-14) % Eos % (Auto) 2.1 (2-4) % Baso % (Auto) 1.1 (0-2) % Neut # (Auto) 5300 (0984-8503) /uL Lymph # (Auto) 800 L (0537-2665) /uL Angelina # (Auto) 600 (0-900) /uL Eos # (Auto) 100 (0-450) /uL Baso # (Auto) 100 (0-100) /uL PT 40.9 H D (10.1-12.7) SECONDS INR 3.5 H (0.9-1.3) Sodium 135 L (137-145) mmol/L Potassium 3.8 (3.4-5.1) mmol/L Chloride 98 (98-107) mmol/L Carbon Dioxide 29 (22-32) mmol/L BUN 11 (9-20) mg/dL Creatinine 0.62 L (0.66-1.25) mg/dL Estimated GFR > 60 (>60) mL/min BUN/Creatinine Ratio 17.7 (6-22) Glucose 118 H (80-110) mg/dL Calcium 9.7 (8.4-10.2) mg/dL Magnesium 1.8 (1.6-2.3) mg/dL Total Bilirubin 0.6 (0.2-1.3) mg/dL AST 18 (17-59) IU/L ALT 14 (<50) IU/L Alkaline Phosphatase 84 (38-126) U/L Total Creatine Kinase < 20 L (55-170) U/L Troponin I 0.053 H (0.01-0.034) ng/mL NT-Pro-B Natriuret Pep 5650 H (<450) pg/mL Total Protein 6.8 (6.3-8.2) g/dL Albumin 3.9 (3.5-5.0) g/dL Globulin 2.9 (1.7-4.1) g/dL Albumin/Globulin Ratio 1.3 (1.0-2.8) MDM Narrative Medical decision making narrative: Unsure as to what new symptoms the patient has today they brought him into the emergency department. He is complaining of a headache and chest tightness and shortness of breath which appear to have been there for years. Does not appear that any of the symptoms are necessarily new or worse today. I did review the patient's medical record. He did recently have a thoracentesis of his right lung. I did discuss the case with the validation technician who did see him during that time. There was concern about a mass in his right hilum. Given his headache validation technician recommended CT scan with contrast to evaluate for potential metastasis. The patient is unable to lay flat for the MRI because of his shortness of breath. The CT scan would be the next best option. After Toradol patient states that his headache is improved. He is on his baseline home oxygen need. Care turned over to Dr. Hines to follow-up on head CT and disposition. [1800] (Donny) Patient received in sign out from Dr. Miranda]. I have reviewed the clinical course and performed an independent history and physical exam. Patient resting comfortably. Head CT shows no significant abnormalities. We have been in contact with the patient's validation technician who will see him tomorrow to perform a thoracentesis. No indication for hospitalization or further treatment tonight. Patient given return precautions which include but not limited to increasing shortness of breath, fever, chest pain or other concerning symptoms. Questions answered to his apparent satisfaction Discharge Plan Departure Patient Disposition: Home Clinical Impression: Pleural effusion, Chronic headache Instructions: DI for Headache, DI for Pleural Effusion Activity Restrictions/Additional Instructions: *You have been diagnosed with [chronic headaches and recurrence of a right-sided pleural effusion. As we discussed your history and physical exam reassuring. The chest x-ray does show a recurrence of your pleural effusion. Labs are otherwise unremarkable and CT scan of your brain had no significant findings.] *What to do: *Please continue to take your regular medications as directed. [ ] New medication prescriptions sent to your pharmacy: [ ] [ ] New medication written as a paper prescription [ ] No new medications given *Please follow up with your validation technician tomorrow. He had been in close contact with Dr. Gill and would like to see you tomorrow to likely perform another thoracentesis *Return to Emergency Department if you should have any new, worsening or concerning symptoms, such as [fever greater than 101 F, shaking chills, worsening pain, persistent vomiting or other bothersome symptoms] Prescriptions: No Action sumatriptan succinate 50 mg tablet 50 mg PO ONCE MDD 100 mg Qty: 20 1RF Rx Instructions: may repeat once after at least 2 hours clobetasol 0.05 % cream 1 applic TOP DAILY PRN (Reason: Psoriasis) Qty: 30 11RF warfarin 2.5 mg tablet See Rx Instructions .ROUTE .COMPLEX Qty: 228 3RF Dose Instruction: Take 2 tablets by mouth on Wednesday; 1 & 1/2 tablets on Wednesday and 1 tablet all other days or as directed. Rx Instructions: Take 2 tablets by mouth on Wednesday; 1 & 1/2 tablets on Wednesday and 1 tablet all other days or as directed. prednisone 20 mg tablet 20 mg PO DAILY Qty: 7 0RF Rx Instructions: take po for 7 days. prednisone 5 mg tablet 5 mg PO DAILY Qty: 60 1RF Rx Instructions: Take the 20mg for 7 days, then begin the 5mg tabs. terazosin 10 mg capsule 10 mg PO QDAY Qty: 90 3RF metoprolol succinate 50 mg tablet extended release 24 hr 50 mg PO BEDTIME Qty: 90 3RF albuterol sulfate 90 mcg/actuation HFA aerosol inhaler 2 puff inhalation Q6H PRN (Reason: shortness of breath or wheezing) Qty: 8.5 11RF ipratropium bromide 17 mcg/actuation HFA aerosol inhaler 2 puff inhalation Q8H Qty: 12.9 11RF (DME) DISABLED PARKING PERMIT See Rx Instructions .ROUTE .MEDSUPPLY Qty: 1 0RF Rx Instructions: I FIND THIS PATIENT TO BE MEDICALLY DISABLED AND QUALIFIED FOR DISABLE PARKING INDICATED, AND SIGNED ON THE ACCOMPANYING [employer] APPLICATION FOR INDIVIDUALS fluticasone propionate 50 mcg/actuation spray,suspension 1 spray intranasal BID Qty: 16 0RF Rx Instructions: administer into each nostril furosemide [Lasix] 40 mg tablet 40 mg PO DAILY Qty: 7 0RF albuterol sulfate [ProAir HFA] 90 mcg/actuation HFA aerosol inhaler 2 puff inhalation Q4-6H PRN (Reason: shortness of breath or wheezing) Qty: 8.5 1RF Atrovent HFA 17 mcg/actuation HFA aerosol inhaler 2 puff inhalation QID Qty: 12.9 0RF oxycodone 5 mg capsule 5 mg PO Q6H PRN (Reason: pain) Qty: 120 0RF azithromycin 250 mg tablet See Rx Instructions PO .COMPLEX Qty: 6 0RF Rx Instructions: For 250 mg dose pack: take 500 mg today (day 1), then 250 mg for 4 days (days 2-5) PO Referrals: Zi Mayes MD [Physician] - Gary Calero MD [Primary Care Provider] - Stand Alone Forms: Patient Portal/API
[2023-01-14 16:57] LABS: Add Manual Diff / Slide Review NO; Basophils Absolute Auto 100 /uL (0-100); Basophils Percent Auto 1.1 % (0-2); Eosinophils Absolute Auto 100 /uL (0-450); Eosinophils Percent Auto 2.1 % (2-4); Hemoglobin 12.1 g/dL (13.5-17.5); Lymphocytes Absolute Auto 800 /uL (1100-4500); Lymphocytes Percent Auto 11.7 % (25-40); Mean Corpuscular HGB Conc 32.6 % (30-36); Mean Corpuscular Hemoglobin 29.1 PG (26-34); Mean Corpuscular Volume 89.2 fL (80-100); Monocytes Absolute Auto 600 /uL (0-900); Monocytes Percent Auto 8.4 % (3-14); Neutrophils Absolute Auto 5300 /uL (1500-7000); Neutrophils Percent Auto 76.7 % (50-75); Platelet Count 341 X10^3/uL (150-400); Red Blood Cell Count 4.15 X10^6/uL (4.5-5.9); Red Cell Distribution Width 15.9 % (11.6-14.8); White Blood Cell Count 6.9 X10^3/uL (4.5-11.0)
[2023-01-14 17:09] LABS: Alanine Aminotransferase 14 IU/L (<50); Albumin 3.9 g/dL (3.5-5.0); Albumin Globulin Ratio 1.3 (1.0-2.8); Alkaline Phosphatase 84 U/L (38-126); Aspartate Aminotransferase 18 IU/L (17-59); BUN Creatinine Ratio 17.7 (6-22); Bilirubin Total 0.6 mg/dL (0.2-1.3); Blood Urea Nitrogen 11 mg/dL (9-20); Calcium 9.7 mg/dL (8.4-10.2); Carbon Dioxide 29 mmol/L (22-32); Chloride 98 mmol/L (98-107); Creatine Kinase < 20 U/L (55-170); Estimated Glomerular Filt Rate > 60 mL/min (>60); Globulin 2.9 g/dL (1.7-4.1); Glucose 118 mg/dL (80-110); HEMOLYSIS < 15 (0-50); Magnesium 1.8 mg/dL (1.6-2.3); Potassium 3.8 mmol/L (3.4-5.1); Sodium 135 mmol/L (137-145); Total Protein 6.8 g/dL (6.3-8.2)
[2023-01-14] MEDS: KETOROLAC 30 MG/ML VIAL IV (17:09)
[2023-01-14 17:20] LABS: Troponin I 0.053 ng/mL (0.01-0.034)
[2023-01-14 17:24] LABS: INR 3.5 (0.9-1.3); Prothrombin Time 40.9 SECONDS (10.1-12.7)
[2023-01-14 17:25] LABS: NT-proBNP (BNP-Adult 18+) 5650 pg/mL (<450)
--- NOTE | 2023-01-14 18:27 | DI.CT.S_ITS ---
PROCEDURE: CT HEAD/BRAIN WO/W CON INDICATIONS: Probable lung CA with R sided headache, eval for Mets TECHNIQUE: 4.5 mm thick angled axial sections acquired from the foramen magnum to the vertex both before and after the administration of intravenous contrast, with coronal and sagittal reformats. For radiation dose reduction, the following was used: automated exposure control, adjustment of mA and/or kV according to patient size. COMPARISON: [facility], CT, CT HEAD/BRAIN WO CON, 10/14/2022, 8:34. [facility], CT, HEAD WITHOUT CONTRAST, 10/24/2014, 13:14. FINDINGS: Image quality: Excellent. CSF spaces: Basal cisterns are patent. No extra-axial fluid collections. Ventricles are symmetric in size and shape. Brain: No midline shift. No intracranial bleeds or masses. No abnormal intracranial enhancement. There is cerebral volume loss for age. There is periventricular white matter chronic small vessel ischemic change. There is intracranial internal carotid artery atherosclerosis. Skull and face: Calvarium and visualized facial bones appear intact, without suspicious lesions. Sinuses: Visualized sinuses and mastoids are clear. IMPRESSION: CT head without acute intracranial abnormalities. No evidence for mass or mass effect. No areas of abnormal enhancement identified. Dictated by: Tejas Mason M.D. on 01/14/2023 at 19:13 Approved by: Tejas Mason M.D. on 01/14/2023 at 19:13
== END 2023-01-14 19:50 | disposition home or self-care (01) ==
PROVIDERS: Emergency Medicine; Emergency Provider Emergency Medicine; PCP Pediatrics
DX: J90 Pleural effusion, not elsewhere classified (principal); R51.9 Headache, unspecified; R07.9 Chest pain, unspecified; Z79.01 Long term (current) use of anticoagulants
CPT/HCPCS: 36415; 70470; 71045; 80053; 82550; 83735; 83880; 84484; 85025; 85610; 93005; 93010; 96374; 99284; J1885

== ENCOUNTER 2023-01-25 17:17 | Inpatient (IN) | payer MEDICARE, MEDICAID, SELFPAY ==
[2023-01-25] VITALS (31 sets, daily range): BP systolic 131–158; BP diastolic 59–78; PULSE 42–108; RESP 14–53; TEMP 36.4–36.8; O2SAT 91–98; BMI 27.2; BMI 28.5
--- NOTE | 2023-01-25 | DI.CT.S_ITS ---
PROCEDURE: CT CHEST WO CON INDICATIONS: SHORT OF BREATH TECHNIQUE: Noncontrast 5 mm thick sections acquired from the pulmonary apices to the posterior costophrenic angles. 1 mm lung window, 5 mm thick coronal and sagittal and 7 mm axial MIP reformats were then acquired. For radiation dose reduction, the following was used: automated exposure control, adjustment of mA and/or kV according to patient size. COMPARISON: [facility], CT, CT CHEST W CON, 01/06/2023, 13:29. FINDINGS: Image quality: Excellent. Lungs and pleura: Redemonstration of complete opacification of the right hemithorax with collapse of the lung and likely associated consolidative opacities. Large right pleural effusion. Centrilobular and paraseptal emphysematous changes are noted within the left lung. Mild left basilar atelectasis. Otherwise, no focal pulmonary consolidations, pleural effusion or pneumothorax within the left lung. Scattered calcified granulomas throughout the left lung and within the atelectatic right lung. Mediastinum: Heart size is enlarged. Severe multivessel coronary artery calcifications. No pericardial effusion. No mediastinal adenopathy by size criteria. Thoracic aorta and central pulmonary arteries are normal in size. Esophagus is normal in caliber. No hiatal hernia. Bones and chest wall: No suspicious bony lesions. Median sternotomy wires. Decreased osseous mineralization. Degenerative changes of the spine. No vertebral body compression fractures. No axillary or supraclavicular adenopathy by size criteria. Thyroid gland is unremarkable . Abdomen: Visualized upper abdominal solid organs and bowel loops appear normal in the absence of contrast. IMPRESSION: Redemonstration of complete opacification the right hemithorax with collapse of the lung, likely superimposed consolidation and a large right pleural effusion, overall similar in appearance to prior given differences in technique. Differential includes infection and/or malignancy. Recommend further evaluation after resolution of acute process. Dictated by: Ryan Anne M.D. on 01/25/2023 at 18:26 Approved by: Ryan Anne M.D. on 01/25/2023 at 18:30
--- NOTE | 2023-01-25 17:26 | ED_ITS ---
HPI - Abdominal Pain <Melanie Mcgarry MD - Last Filed: 01/26/23 06:49> General Chief Complaint: Urogenital-Male Stated Complaint: constipated/cannot urninate Time Seen by Provider: 01/25/23 17:21 History of Present Illness HPI narrative: 77-year-old male with history of COPD on 2 L O2, atrial fibrillation on warfarin, coronary artery disease, enlarged prostate presents by private vehicle from home for 3 days of constipation and 2 days of inability to urinate. Patient states that he is had urinary retention in the past that required catheterization, but the last episode was several years ago and he does not currently follow with a urologist. Did not take any medications at home for constipation. He states that his abdomen feels distended and is causing him to become short of breath. Related Data Previous Rx's Medication Instructions Recorded albuterol sulfate 90 mcg/actuation 2 puff inhalation Q6H PRN 12/22/21 aerosol inhaler shortness of breath or wheezing #8.5 grams ipratropium bromide 17 2 puff inhalation Q8H #12.9 grams 12/22/21 mcg/actuation HFA aerosol inhaler metoprolol succinate 50 mg 50 mg PO BEDTIME #90 tabs 12/22/21 tablet,extended release 24 hr clobetasol 0.05 % topical cream 1 applic topical DAILY PRN 02/09/22 Psoriasis #30 grams fluticasone propionate 50 1 spray intranasal BID #16 grams 02/18/22 mcg/actuation nasal spray,suspension warfarin 2.5 mg tablet See Rx Instructions .Route 09/24/22 .COMPLEX #228 tabs furosemide 40 mg tablet (Lasix) 40 mg PO DAILY #7 tabs 10/14/22 ipratropium bromide 17 2 puff inhalation QID #12.9 grams 10/14/22 mcg/actuation HFA aerosol inhaler (Atrovent HFA) DISABLED [place] #1 ea 11/26/22 prednisone 20 mg tablet 20 mg PO DAILY #7 tabs 11/27/22 prednisone 5 mg tablet 5 mg PO DAILY #60 tabs 11/27/22 terazosin 10 mg capsule 10 mg PO QDAY #90 caps 12/10/22 oxycodone 5 mg capsule 5 mg PO Q6H PRN pain #120 caps 01/15/23 sumatriptan succinate 50 mg tablet 50 mg PO ONCE headache #20 tabs 01/19/23 Allergies Allergy/AdvReac Type Severity Reaction Status Date / Time No Known Drug Allergies Allergy Verified 01/19/23 15:20 Review of Systems <Melanie Mcgarry MD - Last Filed: 01/26/23 06:49> Review of Systems Narrative: Negative except as noted above Patient History <Melanie Mcgarry MD - Last Filed: 01/26/23 06:49> Medical History (Updated 01/25/23 @ 21:53 by Nuris Araiza DO) Left-sided epistaxis Sinusitis Chronic headache Hypertrophic cardiomyopathy BPH (benign prostatic hyperplasia) (Unknown) History of CVA (cerebrovascular accident) (Unknown) COPD (chronic obstructive pulmonary disease) (Unknown) Psoriasis (Unknown) Stroke (Unknown) Essential hypertension (12/14/16) Chronic atrial fibrillation (12/14/16) Surgical History Hx of angioplasty (1979) Hx of CABG (Unknown) Social History Smoking Status: Former smoker Smoking Status: Former smoker alcohol intake frequency: holidays/special occasions only Substance Use Type: does not use Exam <Melanie Mcgarry MD - Last Filed: 01/26/23 06:49> Narrative Exam Narrative: Const: Awake, alert, appears chronically unwell Eyes: PERRL, EOMI, conjunctiva normal ENT: Atraumatic, mildly dry mucous membranes Cardiac: Irregularly irregular rhythm RESP: pursed lip breathing, absent lung sounds R lung GI: Atraumatic, soft, mild distention, generalized tenderness to palpation without rebound or guarding MSK: Atraumatic, full range of motion, pulses equal Skin: Warm, Dry, intact, no rashes Neuro: AO x3, CN II-XII grossly intact, moves all extremities Psych: affect normal, mood normal, not suicidal, not homicidal Initial Vital Signs Initial Vital Signs: Vital Signs Pulse Rate 101 H 01/25/23 17:26 Pulse Oximetry 95 01/25/23 17:26 Oxygen Delivery Method Nasal Cannula 01/25/23 17:26 Oxygen Flow Rate 2 01/25/23 17:26 <Nuris Araiza DO - Last Filed: 01/26/23 00:04> Initial Vital Signs Initial Vital Signs: Vital Signs Pulse Rate 101 H 01/25/23 17:26 Pulse Oximetry 95 01/25/23 17:26 Oxygen Delivery Method Nasal Cannula 01/25/23 17:26 Oxygen Flow Rate 2 01/25/23 17:26 Course <Melanie Mcgarry MD - Last Filed: 01/26/23 06:49> Course Course Narrative: Constipation and urinary retention. Patient states that he has been afraid to drink for the last several days because he is afraid of the pressure on his bladder. Generalized tenderness all over abdomen to both light and deep palpation. Given both constipation and retention we will order CT of the abdomen and pelvis for better assessment. Medications for pain ordered. Laboratory work ordered. Orders Ordered: Acetaminophen (Acetaminophen 325 Mg Tablet) 650 mg PO Q6H PRN PRN Reason: Fever/Mild Pain (1-3) Albuterol (Albuterol 2.5 Mg/3 Ml Neb (Adult)) 2.5 mg INH [id number] PRN PRN Reason: Dyspnea Albuterol (Albuterol Hfa Mdi 60 Puff/8 Gm Inhaler) 2 puff INH Q6H PRN PRN Reason: shortness of breath or wheezing Bisacodyl (Bisacodyl 10 Mg Supp) 10 mg [place] DAILY PRN PRN Reason: Constipation Clobetasol Propionate (Clobetasol 0.05% Cream 15 Gm) 1 applic TOP DAILY PRN PRN Reason: Psoriasis Fluticasone Propionate (Fluticasone 120 [place]/16 Gm [place].Susp) 1 spray NASAL BID [facility] Furosemide (Furosemide 40 Mg Tablet) 40 mg PO DAILY [facility] Hydromorphone HCl (Hydromorphone 0.5 Mg Inj) 0.5 mg IV Q2H PRN PRN Reason: Pain, Severe (7-10) Last Admin: 01/26/23 04:19 Dose: 0.5 mg Documented By: ANNA Ipratropium Gays (Ipratropium 0.5 Mg/2.5 Ml Neb) 0.5 mg INH Q4HRWA DANIEL Last Admin: 01/25/23 21:45 Dose: 0.5 mg Documented By: COURT Metoprolol Succinate (Metoprolol Er 50 Mg Tablet) 50 mg PO BID [facility] Naloxone HCl (Naloxone 0.4 Mg/Ml Vial) 0.2 mg IV Q2MIN PRN PRN Reason: Opiate Reversal Ondansetron HCl (Ondansetron 4 Mg/2 Ml Inj) 4 mg IV Q8HR PRN PRN Reason: Nausea And Vomiting Oxycodone HCl (Oxycodone Ir 5 Mg Tablet) 5 mg PO Q3H PRN PRN Reason: Pain, Moderate (4-6) Oxycodone HCl (Oxycodone Ir 5 Mg Tablet) 5 mg PO Q6H PRN PRN Reason: pain Prednisone (Prednisone 20 Mg Tablet) 20 mg PO DAILY [facility] Sennosides (Sennosides 8.6 Mg Tablet) 17.2 mg PO BID [facility] Tamsulosin HCl (Tamsulosin 0.4 Mg Capsule) 0.4 mg PO DAILY [facility] Terazosin HCl (Terazosin 5 Mg Capsule) 10 mg PO DAILY [facility] Last Admin: 01/25/23 22:39 Dose: 10 mg Documented By: Discontinued Medications Albuterol/Ipratropium (Albuterol/Ipratropium 3 Ml Ampul) 6 ml INH NOW ONE Stop: 01/25/23 17:27 Last Admin: 01/25/23 21:40 Dose: 6 ml Documented By: COURT Hydromorphone HCl (Hydromorphone 0.5 Mg Inj) 0.5 mg IV NOW ONE Stop: 01/25/23 17:26 Last Admin: 01/25/23 18:11 Dose: 0.5 mg Documented By: MPO Sodium Chloride (Normal Saline 0.9%) 1,000 mls @ 1,000 mls/hr IV BOLUS ONE Stop: 01/25/23 18:24 Last Infusion: 01/25/23 19:30 Dose: Infused Documented By: Admin: 01/25/23 18:29 Dose: 1,000 mls/hr Documented By: MPO Ipratropium Gays (Ipratropium 0.5 Mg/2.5 Ml Neb) 0.5 mg INH Q8H DANIEL Lidocaine HCl (Lidocaine 2% (Glydo) 6 Ml Gel) 6 ml TOP NOW ONE Stop: 01/25/23 18:09 Last Admin: 01/25/23 18:11 Dose: 6 ml Documented By: MPO Metoprolol Succinate (Metoprolol Er 50 Mg Tablet) 50 mg PO NOW ONE Stop: 01/25/23 20:48 Last Admin: 01/25/23 20:58 Dose: 50 mg Documented By: Non-Formulary Medication (Ipratropium Gays [Atrovent Hfa]) 2 puff INHALATION QID DANIEL Phytonadione (Phytonadione (Vit K1) 5 Mg Tablet) 10 mg PO NOW ONE Stop: 01/25/23 20:48 Last Admin: 01/25/23 20:55 Dose: 10 mg Documented By: Reevaluation(s) Reevaluation #1: Patient found to have pleural effusion on CT imaging. Patient has a history of recurrent pleural effusions, most recently drained 01/07/23. Cytology transudative without malignant cells, however per primary care note there is still high concern for malignant process given the patient's history of smoking. Imaging and labs pending. Care of patient signed to Dr. Araiza at 1800 Vital Signs Vital signs: Vital Signs - 8 hr 01/25/23 17:26 01/25/23 17:28 01/25/23 17:46 Temperature 97.6 F Pulse Rate 101 H 87 98 H Respiratory Rate 22 14 Blood Pressure 158/67 H Pulse Oximetry 95 94 95 Oxygen Delivery Method Nasal Cannula Nasal Cannula Oxygen Flow Rate 2 2 01/25/23 17:47 01/25/23 17:47 01/25/23 18:00 Temperature Pulse Rate 90 88 Respiratory Rate 28 H 33 H Blood Pressure 134/63 Pulse Oximetry 95 95 Oxygen Delivery Method Oxygen Flow Rate 01/25/23 18:15 01/25/23 18:30 01/25/23 18:45 Temperature Pulse Rate 97 H 42 L 95 H Respiratory Rate 26 H 30 H Blood Pressure Pulse Oximetry 94 94 92 Oxygen Delivery Method Oxygen Flow Rate 01/25/23 19:00 01/25/23 19:15 01/25/23 19:30 Temperature Pulse Rate 98 H 98 H 106 H Respiratory Rate 34 H 32 H Blood Pressure Pulse Oximetry 92 92 94 Oxygen Delivery Method Nasal Cannula Oxygen Flow Rate 2 01/25/23 19:45 01/25/23 20:00 01/25/23 20:15 Temperature Pulse Rate 103 H 99 H 102 H Respiratory Rate 35 H 33 H 41 H Blood Pressure Pulse Oximetry 94 94 93 Oxygen Delivery Method Nasal Cannula Oxygen Flow Rate 2 01/25/23 20:17 01/25/23 20:17 01/25/23 20:30 Temperature Pulse Rate 100 H Respiratory Rate 32 H Blood Pressure 138/64 143/67 H Pulse Oximetry 92 Oxygen Delivery Method Nasal Cannula Oxygen Flow Rate 2 01/25/23 20:30 01/25/23 20:36 01/25/23 20:36 Temperature Pulse Rate 98 H 99 H Respiratory Rate 29 H 31 H Blood Pressure 142/62 H Pulse Oximetry 92 92 Oxygen Delivery Method Oxygen Flow Rate 01/25/23 20:45 01/25/23 20:45 01/25/23 21:00 Temperature Pulse Rate 108 H 104 H Respiratory Rate 36 H Blood Pressure 145/66 H Pulse Oximetry 91 92 Oxygen Delivery Method Nasal Cannula Oxygen Flow Rate 2 01/25/23 21:00 Temperature Pulse Rate Respiratory Rate Blood Pressure 154/68 H Pulse Oximetry Oxygen Delivery Method Oxygen Flow Rate <Nuris Araiza, DO - Last Filed: 01/26/23 00:04> Orders Ordered: Acetaminophen (Acetaminophen 325 Mg Tablet) 650 mg PO Q6H PRN PRN Reason: Fever/Mild Pain (1-3) Albuterol (Albuterol 2.5 Mg/3 Ml Neb (Adult)) 2.5 mg INH [id number] PRN PRN Reason: Dyspnea Albuterol (Albuterol Hfa Mdi 60 Puff/8 Gm Inhaler) 2 puff INH Q6H PRN PRN Reason: shortness of breath or wheezing Bisacodyl (Bisacodyl 10 Mg Supp) 10 mg [place] DAILY PRN PRN Reason: Constipation Clobetasol Propionate (Clobetasol 0.05% Cream 15 Gm) 1 applic TOP DAILY PRN PRN Reason: Psoriasis Fluticasone Propionate (Fluticasone 120 [place]/16 Gm [place].Susp) 1 spray NASAL BID DANIEL Furosemide (Furosemide 40 Mg Tablet) 40 mg PO DAILY DANIEL Hydromorphone HCl (Hydromorphone 0.5 Mg Inj) 0.5 mg IV Q2H PRN PRN Reason: Pain, Severe (7-10) Last Admin: 01/26/23 04:19 Dose: 0.5 mg Documented By: ANNA Ipratropium Gays (Ipratropium 0.5 Mg/2.5 Ml Neb) 0.5 mg INH Q4HRWA DANIEL Last Admin: 01/25/23 21:45 Dose: 0.5 mg Documented By: COURT Metoprolol Succinate (Metoprolol Er 50 Mg Tablet) 50 mg PO BID [facility] Naloxone HCl (Naloxone 0.4 Mg/Ml Vial) 0.2 mg IV Q2MIN PRN PRN Reason: Opiate Reversal Ondansetron HCl (Ondansetron 4 Mg/2 Ml Inj) 4 mg IV Q8HR PRN PRN Reason: Nausea And Vomiting Oxycodone HCl (Oxycodone Ir 5 Mg Tablet) 5 mg PO Q3H PRN PRN Reason: Pain, Moderate (4-6) Oxycodone HCl (Oxycodone Ir 5 Mg Tablet) 5 mg PO Q6H PRN PRN Reason: pain Prednisone (Prednisone 20 Mg Tablet) 20 mg PO DAILY [facility] Sennosides (Sennosides 8.6 Mg Tablet) 17.2 mg PO BID [facility] Tamsulosin HCl (Tamsulosin 0.4 Mg Capsule) 0.4 mg PO DAILY [facility] Terazosin HCl (Terazosin 5 Mg Capsule) 10 mg PO DAILY [facility] Last Admin: 01/25/23 22:39 Dose: 10 mg Documented By: ANNA Discontinued Medications Albuterol/Ipratropium (Albuterol/Ipratropium 3 Ml Ampul) 6 ml INH NOW ONE Stop: 01/25/23 17:27 Last Admin: 01/25/23 21:40 Dose: 6 ml Documented By: COURT Hydromorphone HCl (Hydromorphone 0.5 Mg Inj) 0.5 mg IV NOW ONE Stop: 01/25/23 17:26 Last Admin: 01/25/23 18:11 Dose: 0.5 mg Documented By: EBONI Sodium Chloride (Normal Saline 0.9%) 1,000 mls @ 1,000 mls/hr IV BOLUS ONE Stop: 01/25/23 18:24 Last Infusion: 01/25/23 19:30 Dose: Infused Documented By: Admin: 01/25/23 18:29 Dose: 1,000 mls/hr Documented By: EBONI Ipratropium Gays (Ipratropium 0.5 Mg/2.5 Ml Neb) 0.5 mg INH Q8H [facility] Lidocaine HCl (Lidocaine 2% (Glydo) 6 Ml Gel) 6 ml TOP NOW ONE Stop: 01/25/23 18:09 Last Admin: 01/25/23 18:11 Dose: 6 ml Documented By: EBONI Metoprolol Succinate (Metoprolol Er 50 Mg Tablet) 50 mg PO NOW ONE Stop: 01/25/23 20:48 Last Admin: 01/25/23 20:58 Dose: 50 mg Documented By: Non-Formulary Medication (Ipratropium Gays [Atrovent Hfa]) 2 puff INHALATION QID [facility] Phytonadione (Phytonadione (Vit K1) 5 Mg Tablet) 10 mg PO NOW ONE Stop: 01/25/23 20:48 Last Admin: 01/25/23 20:55 Dose: 10 mg Documented By: Vital Signs Vital signs: Vital Signs - 8 hr 01/25/23 17:26 01/25/23 17:28 01/25/23 17:46 Temperature 97.6 F Pulse Rate 101 H 87 98 H Respiratory Rate 22 14 Blood Pressure 158/67 H Pulse Oximetry 95 94 95 Oxygen Delivery Method Nasal Cannula Nasal Cannula Oxygen Flow Rate 2 2 01/25/23 17:47 01/25/23 17:47 01/25/23 18:00 Temperature Pulse Rate 90 88 Respiratory Rate 28 H 33 H Blood Pressure 134/63 Pulse Oximetry 95 95 Oxygen Delivery Method Oxygen Flow Rate 01/25/23 18:15 01/25/23 18:30 01/25/23 18:45 Temperature Pulse Rate 97 H 42 L 95 H Respiratory Rate 26 H 30 H Blood Pressure Pulse Oximetry 94 94 92 Oxygen Delivery Method Oxygen Flow Rate 01/25/23 19:00 01/25/23 19:15 01/25/23 19:30 Temperature Pulse Rate 98 H 98 H 106 H Respiratory Rate 34 H 32 H Blood Pressure Pulse Oximetry 92 92 94 Oxygen Delivery Method Nasal Cannula Oxygen Flow Rate 2 01/25/23 19:45 01/25/23 20:00 01/25/23 20:15 Temperature Pulse Rate 103 H 99 H 102 H Respiratory Rate 35 H 33 H 41 H Blood Pressure Pulse Oximetry 94 94 93 Oxygen Delivery Method Nasal Cannula Oxygen Flow Rate 2 01/25/23 20:17 01/25/23 20:17 01/25/23 20:30 Temperature Pulse Rate 100 H Respiratory Rate 32 H Blood Pressure 138/64 143/67 H Pulse Oximetry 92 Oxygen Delivery Method Nasal Cannula Oxygen Flow Rate 2 01/25/23 20:30 01/25/23 20:36 01/25/23 20:36 Temperature Pulse Rate 98 H 99 H Respiratory Rate 29 H 31 H Blood Pressure 142/62 H Pulse Oximetry 92 92 Oxygen Delivery Method Oxygen Flow Rate 01/25/23 20:45 01/25/23 20:45 01/25/23 21:00 Temperature Pulse Rate 108 H 104 H Respiratory Rate 36 H Blood Pressure 145/66 H Pulse Oximetry 91 92 Oxygen Delivery Method Nasal Cannula Oxygen Flow Rate 2 01/25/23 21:00 Temperature Pulse Rate Respiratory Rate Blood Pressure 154/68 H Pulse Oximetry Oxygen Delivery Method Oxygen Flow Rate MDM - Abdominal Pain <Melanie Mcgarry MD - Last Filed: 01/26/23 06:49> Lab Data 01/26/23 05:15 01/26/23 05:15 Labs: Lab Results 01/25/23 01/25/23 01/25/23 Range/Units 17:36 18:07 18:40 WBC 7.1 (4.5-11.0) X10^3/uL RBC 3.98 L (4.5-5.9) X10^6/uL Hgb 11.3 L (13.5-17.5) g/dL Hct 35.0 L (41-53) % MCV 88.0 (80-100) fL MCH 28.4 (26-34) PG MCHC 32.3 (30-36) % RDW 15.8 H (11.6-14.8) % Plt Count 388 (150-400) X10^3/uL Neut % (Auto) 83.3 H (50-75) % Lymph % (Auto) 6.7 L (25-40) % [place] % (Auto) 8.1 (3-14) % Eos % (Auto) 1.1 L (2-4) % Baso % (Auto) 0.8 (0-2) % Neut # (Auto) 5900 (6370-6889) /uL Lymph # (Auto) 500 L (0853-9637) /uL [place] # (Auto) 600 (0-900) /uL Eos # (Auto) 100 (0-450) /uL Baso # (Auto) 100 (0-100) /uL PT (10.1-12.7) SECONDS INR (0.9-1.3) Sodium 133 L (137-145) mmol/L Potassium 4.0 (3.4-5.1) mmol/L Chloride 95 L (98-107) mmol/L Carbon Dioxide 27 (22-32) mmol/L BUN 11 (9-20) mg/dL Creatinine 0.46 L (0.66-1.25) mg/dL Estimated GFR > 60 (>60) mL/min BUN/Creatinine Ratio 23.9 H (6-22) Glucose 113 H (80-110) mg/dL Lactate 1.5 (0.7-2.1) mmol/L Calcium 9.6 (8.4-10.2) mg/dL Magnesium (1.6-2.3) mg/dL Total Bilirubin 0.9 (0.2-1.3) mg/dL AST 33 (17-59) IU/L ALT 15 (<50) IU/L Alkaline Phosphatase 75 (38-126) U/L Ammonia 19 (9-30) umol/L Total Creatine Kinase (55-170) U/L Troponin I (0.01-0.034) ng/mL Total Protein 7.1 (6.3-8.2) g/dL Albumin 4.0 (3.5-5.0) g/dL Globulin 3.1 (1.7-4.1) g/dL Albumin/Globulin Ratio 1.3 (1.0-2.8) Lipase 36 (23-300) U/L Urine Color Yellow Urine Appearance Clear Urine pH 5.5 (4.5-8.0) Ur Specific [place] 1.010 (1.000-1.035) Urine Protein Trace H (Negative) Urine Glucose (UA) Negative (Negative) g/dL Urine Ketones 2+ H (NEGATIVE) Urine Occult Blood Negative (Negative) Urine Nitrate Negative (Negative) Urine Bilirubin 1+ H (NEGATIVE) Ur Bilirubin Confirm Negative (Negative) Urine Urobilinogen 0.2 (0.2) E.U./dL Ur Leukocyte Esterase Negative (NEGATIVE) Urine RBC 0-1/hpf (0-5/HPF) Urine WBC 0-1/hpf (0-5/HPF) Ur Squamous Epith Cells 0-1 /hpf (0-5/HPF) Urine Bacteria Occasional (0-1) (None) Hyaline Casts 0-1/lpf (None) Ur Culture Indicated? Cult not indicated 01/25/23 01/25/23 Range/Units 20:07 20:37 WBC (4.5-11.0) X10^3/uL RBC (4.5-5.9) X10^6/uL Hgb (13.5-17.5) g/dL Hct (41-53) % MCV (80-100) fL MCH (26-34) PG MCHC (30-36) % RDW (11.6-14.8) % Plt Count (150-400) X10^3/uL Neut % (Auto) (50-75) % Lymph % (Auto) (25-40) % [place] % (Auto) (3-14) % Eos % (Auto) (2-4) % Baso % (Auto) (0-2) % Neut # (Auto) (4719-4258) /uL Lymph # (Auto) (0713-2335) /uL [place] # (Auto) (0-900) /uL Eos # (Auto) (0-450) /uL Baso # (Auto) (0-100) /uL PT 97.9 H (10.1-12.7) SECONDS INR 8.3 H* (0.9-1.3) Sodium (137-145) mmol/L Potassium (3.4-5.1) mmol/L Chloride (98-107) mmol/L Carbon Dioxide (22-32) mmol/L BUN (9-20) mg/dL Creatinine (0.66-1.25) mg/dL Estimated GFR (>60) mL/min BUN/Creatinine Ratio (6-22) Glucose (80-110) mg/dL Lactate (0.7-2.1) mmol/L Calcium (8.4-10.2) mg/dL Magnesium 1.6 (1.6-2.3) mg/dL Total Bilirubin (0.2-1.3) mg/dL AST (17-59) IU/L ALT (<50) IU/L Alkaline Phosphatase (38-126) U/L Ammonia (9-30) umol/L Total Creatine Kinase 28 L (55-170) U/L Troponin I 0.035 H (0.01-0.034) ng/mL Total Protein (6.3-8.2) g/dL Albumin (3.5-5.0) g/dL Globulin (1.7-4.1) g/dL Albumin/Globulin Ratio (1.0-2.8) Lipase (23-300) U/L Urine Color Urine Appearance Urine pH (4.5-8.0) Ur Specific [place] (1.000-1.035) Urine Protein (Negative) Urine Glucose (UA) (Negative) g/dL Urine Ketones (NEGATIVE) Urine Occult Blood (Negative) Urine Nitrate (Negative) Urine Bilirubin (NEGATIVE) Ur Bilirubin Confirm (Negative) Urine Urobilinogen (0.2) E.U./dL Ur Leukocyte Esterase (NEGATIVE) Urine RBC (0-5/HPF) Urine WBC (0-5/HPF) Ur Squamous Epith Cells (0-5/HPF) Urine Bacteria (None) Hyaline Casts (None) Ur Culture Indicated? <Nuris Araiza DO - Last Filed: 01/26/23 00:04> Lab Data Labs: Lab Results 01/25/23 01/25/23 01/25/23 Range/Units 17:36 18:07 18:40 WBC 7.1 (4.5-11.0) X10^3/uL RBC 3.98 L (4.5-5.9) X10^6/uL Hgb 11.3 L (13.5-17.5) g/dL Hct 35.0 L (41-53) % MCV 88.0 (80-100) fL MCH 28.4 (26-34) PG MCHC 32.3 (30-36) % RDW 15.8 H (11.6-14.8) % Plt Count 388 (150-400) X10^3/uL Neut % (Auto) 83.3 H (50-75) % Lymph % (Auto) 6.7 L (25-40) % [place] % (Auto) 8.1 (3-14) % Eos % (Auto) 1.1 L (2-4) % Baso % (Auto) 0.8 (0-2) % Neut # (Auto) 5900 (8738-3051) /uL Lymph # (Auto) 500 L (0564-9249) /uL [place] # (Auto) 600 (0-900) /uL Eos # (Auto) 100 (0-450) /uL Baso # (Auto) 100 (0-100) /uL PT (10.1-12.7) SECONDS INR (0.9-1.3) Sodium 133 L (137-145) mmol/L Potassium 4.0 (3.4-5.1) mmol/L Chloride 95 L (98-107) mmol/L Carbon Dioxide 27 (22-32) mmol/L BUN 11 (9-20) mg/dL Creatinine 0.46 L (0.66-1.25) mg/dL Estimated GFR > 60 (>60) mL/min BUN/Creatinine Ratio 23.9 H (6-22) Glucose 113 H (80-110) mg/dL Lactate 1.5 (0.7-2.1) mmol/L Calcium 9.6 (8.4-10.2) mg/dL Magnesium (1.6-2.3) mg/dL Total Bilirubin 0.9 (0.2-1.3) mg/dL AST 33 (17-59) IU/L ALT 15 (<50) IU/L Alkaline Phosphatase 75 (38-126) U/L Ammonia 19 (9-30) umol/L Total Creatine Kinase (55-170) U/L Troponin I (0.01-0.034) ng/mL Total Protein 7.1 (6.3-8.2) g/dL Albumin 4.0 (3.5-5.0) g/dL Globulin 3.1 (1.7-4.1) g/dL Albumin/Globulin Ratio 1.3 (1.0-2.8) Lipase 36 (23-300) U/L Urine Color Yellow Urine Appearance Clear Urine pH 5.5 (4.5-8.0) Ur Specific [place] 1.010 (1.000-1.035) Urine Protein Trace H (Negative) Urine Glucose (UA) Negative (Negative) g/dL Urine Ketones 2+ H (NEGATIVE) Urine Occult Blood Negative (Negative) Urine Nitrate Negative (Negative) Urine Bilirubin 1+ H (NEGATIVE) Ur Bilirubin Confirm Negative (Negative) Urine Urobilinogen 0.2 (0.2) E.U./dL Ur Leukocyte Esterase Negative (NEGATIVE) Urine RBC 0-1/hpf (0-5/HPF) Urine WBC 0-1/hpf (0-5/HPF) Ur Squamous Epith Cells 0-1 /hpf (0-5/HPF) Urine Bacteria Occasional (0-1) (None) Hyaline Casts 0-1/lpf (None) Ur Culture Indicated? Cult not indicated 01/25/23 01/25/23 Range/Units 20:07 20:37 WBC (4.5-11.0) X10^3/uL RBC (4.5-5.9) X10^6/uL Hgb (13.5-17.5) g/dL Hct (41-53) % MCV (80-100) fL MCH (26-34) PG MCHC (30-36) % RDW (11.6-14.8) % Plt Count (150-400) X10^3/uL Neut % (Auto) (50-75) % Lymph % (Auto) (25-40) % [place] % (Auto) (3-14) % Eos % (Auto) (2-4) % Baso % (Auto) (0-2) % Neut # (Auto) (3592-7368) /uL Lymph # (Auto) (1523-7352) /uL [place] # (Auto) (0-900) /uL Eos # (Auto) (0-450) /uL Baso # (Auto) (0-100) /uL PT 97.9 H (10.1-12.7) SECONDS INR 8.3 H* (0.9-1.3) Sodium (137-145) mmol/L Potassium (3.4-5.1) mmol/L Chloride (98-107) mmol/L Carbon Dioxide (22-32) mmol/L BUN (9-20) mg/dL Creatinine (0.66-1.25) mg/dL Estimated GFR (>60) mL/min BUN/Creatinine Ratio (6-22) Glucose (80-110) mg/dL Lactate (0.7-2.1) mmol/L Calcium (8.4-10.2) mg/dL Magnesium 1.6 (1.6-2.3) mg/dL Total Bilirubin (0.2-1.3) mg/dL AST (17-59) IU/L ALT (<50) IU/L Alkaline Phosphatase (38-126) U/L Ammonia (9-30) umol/L Total Creatine Kinase 28 L (55-170) U/L Troponin I 0.035 H (0.01-0.034) ng/mL Total Protein (6.3-8.2) g/dL Albumin (3.5-5.0) g/dL Globulin (1.7-4.1) g/dL Albumin/Globulin Ratio (1.0-2.8) Lipase (23-300) U/L Urine Color Urine Appearance Urine pH (4.5-8.0) Ur Specific [place] (1.000-1.035) Urine Protein (Negative) Urine Glucose (UA) (Negative) g/dL Urine Ketones (NEGATIVE) Urine Occult Blood (Negative) Urine Nitrate (Negative) Urine Bilirubin (NEGATIVE) Ur Bilirubin Confirm (Negative) Urine Urobilinogen (0.2) E.U./dL Ur Leukocyte Esterase (NEGATIVE) Urine RBC (0-5/HPF) Urine WBC (0-5/HPF) Ur Squamous Epith Cells (0-5/HPF) Urine Bacteria (None) Hyaline Casts (None) Ur Culture Indicated? Imaging Data CT scan - chest: Radiologist's Impression: PROCEDURE: CT CHEST WO CON INDICATIONS: SHORT OF BREATH TECHNIQUE: Noncontrast 5 mm thick sections acquired from the pulmonary apices to the posterior costophrenic angles. 1 mm lung window, 5 mm thick coronal and sagittal and 7 mm axial MIP reformats were then acquired. For radiation dose reduction, the following was used: automated exposure control, adjustment of mA and/or kV according to patient size. COMPARISON: [facility], CT, CT CHEST W CON, 01/06/2023, 13:29. FINDINGS: Image quality: Excellent. Lungs and pleura: Redemonstration of complete opacification of the right hemithorax with collapse of the lung and likely associated consolidative opacities. Large right pleural effusion. Centrilobular and paraseptal emphysematous changes are noted within the left lung. Mild left basilar atelectasis. Otherwise, no focal pulmonary consolidations, pleural effusion or pneumothorax within the left lung. Scattered calcified granulomas throughout the left lung and within the atelectatic right lung. Mediastinum: Heart size is enlarged. Severe multivessel coronary artery calcifications. No pericardial effusion. No mediastinal adenopathy by size criteria. Thoracic aorta and central pulmonary arteries are normal in size. Esophagus is normal in caliber. No hiatal hernia. Bones and chest wall: No suspicious bony lesions. Median sternotomy wires. Decreased osseous mineralization. Degenerative changes of the spine. No vertebral body compression fractures. No axillary or supraclavicular adenopathy by size criteria. Thyroid gland is unremarkable . Abdomen: Visualized upper abdominal solid organs and bowel loops appear normal in the absence of contrast. IMPRESSION: Redemonstration of complete opacification the right hemithorax with collapse of the lung, likely superimposed consolidation and a large right pleural effusion, overall similar in appearance to prior given differences in technique. Differential includes infection and/or malignancy. Recommend further evaluation after resolution of acute process. Dictated by: Ryan Anne M.D. on 01/25/2023 at 18:26 CT scan - abdomen/pelvis: Radiologist's Impression: PROCEDURE: CT ABDOMEN PELVIS WO CON INDICATIONS: urinary retention, constipation, abd pain TECHNIQUE: After the administration of oral contrast, 5 mm thick sections acquired from the diaphragms to the symphysis. 5 mm coronal and sagittal reformats were performed. For radiation dose reduction, the following was used: automated exposure control, adjustment of mA and/or kV according to patient size. COMPARISON: None. FINDINGS: Image quality: Excellent. ABDOMEN: Lung bases: Please see separately dictated CT of the chest. Solid organs: Nodular contour to the liver. Gallbladder is unremarkable . Pancreas is normal in size. Spleen is normal in size. No adrenal nodules. Severe dilatation of the right collecting system versus large peripelvic cysts. The ureter does not appear dilated. Non-specific bilateral perinephric stranding. Peritoneum and bowel: Bowel loops demonstrate normal wall thickness and caliber. Diverticulosis without evidence of acute diverticulitis. Diffuse mesenteric edema and trace free fluid. No extraluminal gas.. Nodes and vessels: No retroperitoneal or mesenteric adenopathy by size criteria. Aorta and inferior vena cava are normal in size. Extensive atherosclerotic vascular calcifications. Miscellaneous: No ventral hernias. PELVIS: Genitourinary: The prostate is enlarged measuring up to 7 cm in transverse dimension. The urinary bladder is markedly distended.. Miscellaneous: Small bilateral inguinal hernias containing fat.. Bones: No suspicious bony lesions. No vertebral body compression fractures. Degenerative changes of the spine. Diffusely decreased osseous mineralization. IMPRESSION: 1. The urinary bladder is markedly distended. The prostate is markedly enlarged. Findings concerning for bladder outlet obstruction. 2. Possible severe right hydronephrosis versus peripelvic cysts. The ureter is not dilated. Consider follow-up ultrasound after resolution of bladder outlet obstruction. 3. Diverticulosis without evidence of acute diverticulitis. . Diffuse mesenteric edema and trace fluid, likely reactive. No extraluminal gas. 5. Extensive atherosclerotic vascular calcifications. 6. Nodular contour to the liver, correlate with cirrhosis. Dictated by: Ryan Anne M.D. on 01/25/2023 at 17:53 ECG Data Interpretation: Atrial fibrillation rate 100 lots of artifact noted no obvious ST changes MDM Narrative Medical decision making narrative: Dr. Araiza- Patient signed out to me by Dr. Mcgarry I have seen evaluated patient myself. He has since had Gil catheter placed he is put out about 1400 cc urine is much better. He reports that he had a thoracentesis looks like January 12 for the last 4 days he is had increasing shortness of breath. He has been complaining to primary and ED visits of a chronic ongoing headache, he had a head CT January 07 in office by pulmonology were 1.55 L drained and sent for fluid analysis. Today he reports significant shortness of breath with exertion but not at rest. He has home oxygen as needed. He is followed by pulmonology. He is a long-time smoker with history of COPD Patient has extensive right pleural effusion on CT he is obviously dyspneic conversational dyspnea requiring oxygen. INR found to be elevated 8.3. Patient went only benefit from a thoracentesis but needs reversal of his. He is no life-threatening leaning given p.o. vitamin K. 20:35 patient had a 2nd run of nonsustained V-tach he was completely asymptomatic 2044 Dr. Trevizo cardiology updated on patient's symptoms test results he reports that patient was used to be followed by the group but not since 2014. He has known CAD he ultimately had a CABG at some point. Thinks that probably has poor EF he is an echo. At this time recommends increasing metoprolol succinate 50 mg b.i.d.. His INR is 8.3 recommend vitamin K and thoracentesis. At this time no need to transfer patient Patient is given metoprolol succinate 50 mg 10 mg of vitamin for elevated INR. Head CT was done secondary to ongoing headaches and elevated INR. It is negative fortunately. Dr. Yancey accepts patient. Discharge Plan Departure Patient Disposition: Admitted As Inpatient Clinical Impression: Recurrent pleural effusion on right, Acute urinary retention, Chronic atrial fibrillation, Paroxysmal ventricular fibrillation, Supratherapeutic INR Constipation Qualifiers: Constipation type: unspecified constipation type Qualified Code(s): K59.00 - Constipation, unspecified Admit Date/Time: 01/25/23 21:03 Admit Provider: Philpipe Yancey
[2023-01-25 18:10] LABS: Add Manual Diff / Slide Review NO; Basophils Absolute Auto 100 /uL (0-100); Basophils Percent Auto 0.8 % (0-2); Eosinophils Absolute Auto 100 /uL (0-450); Eosinophils Percent Auto 1.1 % (2-4); Hemoglobin 11.3 g/dL (13.5-17.5); Lymphocytes Absolute Auto 500 /uL (1100-4500); Lymphocytes Percent Auto 6.7 % (25-40); Mean Corpuscular HGB Conc 32.3 % (30-36); Mean Corpuscular Hemoglobin 28.4 PG (26-34); Monocytes Absolute Auto 600 /uL (0-900); Monocytes Percent Auto 8.1 % (3-14); Neutrophils Absolute Auto 5900 /uL (1500-7000); Neutrophils Percent Auto 83.3 % (50-75); Platelet Count 388 X10^3/uL (150-400); Red Blood Cell Count 3.98 X10^6/uL (4.5-5.9); Red Cell Distribution Width 15.8 % (11.6-14.8); White Blood Cell Count 7.1 X10^3/uL (4.5-11.0)
[2023-01-25] MEDS: HYDROMORPHONE 0.5 MG INJ IV (18:11)
[2023-01-25] MEDS: LIDOCAINE 2% (GLYDO) 6 ML GEL TOP (18:11)
[2023-01-25] MEDS: SODIUM CHLORIDE 0.9% 1,000 ML 1000 ML IV (18:29)
[2023-01-25 18:34] LABS: Ammonia (NH3) 19 umol/L (9-30)
[2023-01-25 18:35] LABS: Alanine Aminotransferase 15 IU/L (<50); Albumin Globulin Ratio 1.3 (1.0-2.8); Alkaline Phosphatase 75 U/L (38-126); Aspartate Aminotransferase 33 IU/L (17-59); BUN Creatinine Ratio 23.9 (6-22); Bilirubin Total 0.9 mg/dL (0.2-1.3); Blood Urea Nitrogen 11 mg/dL (9-20); Calcium 9.6 mg/dL (8.4-10.2); Carbon Dioxide 27 mmol/L (22-32); Chloride 95 mmol/L (98-107); Estimated Glomerular Filt Rate > 60 mL/min (>60); Globulin 3.1 g/dL (1.7-4.1); Glucose 113 mg/dL (80-110); Lipase 36 U/L (23-300); Sodium 133 mmol/L (137-145); Total Protein 7.1 g/dL (6.3-8.2)
[2023-01-25 18:44] LABS: HEMOLYSIS 97 (0-50)
[2023-01-25 18:53] LABS: Appearance Urine UA CLEAR; Bilirubin Urine UA 1+ (NEGATIVE); Color Urine UA YELLOW; Glucose Urine UA NEGATIVE (Negative); Ketones Urine UA 2+ (NEGATIVE); Leukocyte Esterase Urine UA NEGATIVE (NEGATIVE); Nitrite Urine UA NEGATIVE (Negative); Occult Blood Urine UA NEGATIVE (Negative); Protein Urine UA TRACE (Negative); Urobilinogen Urine UA 0.2 E.U./dL (0.2); pH Urine UA 5.5 (4.5-8.0)
[2023-01-25 19:05] LABS: Bacteria Urine Occasional (0-1); Culture Indicated Urine Cult Not Indicated; Hyaline Casts Urine 0-1/LPF; Ictotest Urine Negative (Negative); RBC Urine 0-1/HPF (0-5/HPF); Squamous Epithelial Cell Urine 0-1 /HPF (0-5/HPF); WBC Urine 0-1/HPF (0-5/HPF)
--- NOTE | 2023-01-25 19:29 | PC.NURSE ---
This RN spoke with lab regarding pending lactate and PT ordered around 1730 and 1800. Lab states will be resulting in about 5 minutes.
[2023-01-25 20:39] LABS: Prothrombin Time 97.9 SECONDS (10.1-12.7)
[2023-01-25 20:41] LABS: INR 8.3 (0.9-1.3)
[2023-01-25 20:50] LABS: Lactate (Lactic Acid) 1.5 mmol/L (0.7-2.1)
[2023-01-25 20:52] LABS: Creatine Kinase 28 U/L (55-170); Magnesium 1.6 mg/dL (1.6-2.3)
[2023-01-25] MEDS: PHYTONADIONE (VIT K1) 5 MG TABLET 10 MG PO (20:55)
[2023-01-25] MEDS: METOPROLOL ER 50 MG TABLET PO (20:58)
--- NOTE | 2023-01-25 21:02 | DI.CT.S_ITS ---
PROCEDURE: CT HEAD/BRAIN WO CON INDICATIONS: headache high INR TECHNIQUE: Noncontrast 4.5 mm thick angled axial sections acquired from the foramen magnum to the vertex, with coronal and sagittal reformats. For radiation dose reduction, the following was used: automated exposure control, adjustment of mA and/or kV according to patient size. COMPARISON: [facility], CT, CT HEAD/BRAIN WO/W CON, 01/14/2023, 18:32. [facility], CT, CT HEAD/BRAIN WO CON, 10/14/2022, 8:34. FINDINGS: Image quality: Excellent. CSF spaces: Basal cisterns are patent. No extra-axial fluid collections. The ventricles are symmetric in size and shape. Brain: No intracranial bleeds or masses. There is cerebral volume loss for age, with resultant ventricular and sulcal prominence. There are periventricular and deep white matter chronic small vessel ischemic changes. There is intracranial internal carotid artery atherosclerosis. Skull and face: Calvarium and visualized facial bones appear intact, without suspicious lesions. Sinuses: Visualized sinuses and mastoids are clear. IMPRESSION: 1. No acute intracranial abnormalities. 2. Cerebral volume loss and chronic microvascular ischemic changes. Dictated by: Estefania Birmingham M.D. on 01/25/2023 at 21:29 Approved by: Estefania Birmingham M.D. on 01/25/2023 at 21:30
[2023-01-25 21:05] LABS: Troponin I 0.035 ng/mL (0.01-0.034)
[2023-01-25] MEDS: ALBUTEROL/IPRATROPIUM 3 ML AMPUL 6 ML INH (21:40)
[2023-01-25] MEDS: IPRATROPIUM 0.5 MG/2.5 ML NEB INH (21:45)
[2023-01-25] MEDS: TERAZOSIN 5 MG CAPSULE 10 MG PO (22:39)
[2023-01-26] VITALS (40 sets, daily range): BP systolic 106–148; BP diastolic 53–65; PULSE 82–108; RESP 21–57; TEMP 36.6–37.3; O2SAT 91–97
--- NOTE | 2023-01-26 00:29 | PM.HP.1 ---
History of Present Illness History of Present Illness Chief complaint: constipated/cannot urninate Narrative: 77 years old male with history of COPD on 2 L of oxygen at home, paroxysmal atrial fibrillation on warfarin, CAD, status post CABG and PCI, BPH, hypertension, history of CVA, hypertrophic cardiomyopathy, presents to the ER with urinary retention in the last 2 weeks, abdominal distention and constipation with last bowel movement on Wednesday. He also was noted in the ER to be short of breath, requiring more oxygen and tachypneic. In the ER she had straight cath with removal of 4500 cc of urine. She also had 6 seconds of V. tach. Cardiology was contacted and recommended to increase his metoprolol to [address] scan shows right-sided large pleural effusion. The patient had diagnostic and therapeutic thoracentesis 2 weeks ago with removal of 1.5 L. He also follow-up with pulmonology and the work-up for malignancy including PET scan, MRI and fluids cytology was negative. He also was noted to have INR of 8.3 and was given vitamin K 10 mg. Laboratory shows WBC 7.1, H&H 11.3/35, platelets 388, INR 8.3, sodium 133, creatinine 0.46, blood sugar 113, UA negative, abdominal CT scan shows distended urinary bladder with enlarged prostate, finding concerning for bladder outlet obstruction. CT of head shows chronic microvascular ischemic changes, CT of the chest shows redemonstration of complete opacification of right hemithorax with collapse of the lung with large right pleural effusion. [facility] Medical History (Updated 01/25/23 @ 21:53 by Nuris Araiza DO) Left-sided epistaxis Sinusitis Chronic headache Hypertrophic cardiomyopathy BPH (benign prostatic hyperplasia) (Unknown) History of CVA (cerebrovascular accident) (Unknown) COPD (chronic obstructive pulmonary disease) (Unknown) Psoriasis (Unknown) Stroke (Unknown) Essential hypertension (12/14/16) Chronic atrial fibrillation (12/14/16) Surgical History Hx of angioplasty (1979) Hx of CABG (Unknown) Social History Smoking Status: Former smoker Meds Home Medications and Allergies Home Medications Medication Instructions Recorded Confirmed Type albuterol sulfate 90 mcg/actuation 2 puff inhalation Q6H PRN 12/22/21 01/25/23 Rx aerosol inhaler shortness of breath or wheezing #8.5 grams ipratropium bromide 17 2 puff inhalation Q8H #12.9 grams 12/22/21 01/25/23 Rx mcg/actuation HFA aerosol inhaler metoprolol succinate 50 mg 50 mg PO BEDTIME #90 tabs 12/22/21 01/25/23 Rx tablet,extended release 24 hr clobetasol 0.05 % topical cream 1 applic topical DAILY PRN 02/09/22 01/25/23 Rx Psoriasis #30 grams fluticasone propionate 50 1 spray intranasal BID #16 grams 02/18/22 01/25/23 Rx mcg/actuation nasal spray,suspension warfarin 2.5 mg tablet See Rx Instructions .Route 09/24/22 01/25/23 Rx .COMPLEX #228 tabs furosemide 40 mg tablet (Lasix) 40 mg PO DAILY #7 tabs 10/14/22 01/25/23 Rx ipratropium bromide 17 2 puff inhalation QID #12.9 grams 10/14/22 01/25/23 Rx mcg/actuation HFA aerosol inhaler (Atrovent HFA) DISABLED PARKING PERMIT #1 ea 11/26/22 01/25/23 Rx prednisone 20 mg tablet 20 mg PO DAILY #7 tabs 11/27/22 01/25/23 Rx prednisone 5 mg tablet 5 mg PO DAILY #60 tabs 11/27/22 01/25/23 Rx terazosin 10 mg capsule 10 mg PO QDAY #90 caps 12/10/22 01/25/23 Rx oxycodone 5 mg capsule 5 mg PO Q6H PRN pain #120 caps 01/15/23 01/25/23 Rx sumatriptan succinate 50 mg tablet 50 mg PO ONCE headache #20 tabs 01/19/23 01/25/23 Rx Allergies Allergy/AdvReac Type Severity Reaction Status Date / Time No Known Drug Allergies Allergy Verified 01/19/23 15:20 Review of Systems Review of Systems ROS: Yes All systems reviewed with the patient and are negative except as otherwise documented Constitutional Constitutional: Reports as per HPI and Reports system reviewed and no additional complaints, except as documented Eyes Eyes: Reports as per HPI and Reports system reviewed and no additional complaints, except as documented ENT Ears, Nose, Mouth, and Throat: Yes as per HPI and Yes system reviewed and no additional complaints, except as documented Cardiovascular Cardiovascular: Reports system reviewed and no additional complaints, except as documented Respiratory Respiratory: Reports system reviewed and no additional complaints, except as documented Gastrointestinal Gastrointestinal: Reports system reviewed and no additional complaints, except as documented Genitourinary Genitourinary: Reports system reviewed and no additional complaints, except as documented Musculoskeletal Musculoskeletal: Reports system reviewed and no additional complaints, except as documented, Reports abnormal gait and Reports numbness Neurologic Neurologic: Reports system reviewed and no additional complaints, except as documented, Reports abnormal gait, Reports confusion and Reports numbness Psychiatric Psychiatric: Reports system reviewed and no additional complaints, except as documented and Reports confusion Exam Vital Signs (past 8 hours): - 01/25/23 17:26 01/25/23 17:28 01/25/23 17:46 Temperature 97.6 F Pulse Rate 101 H 87 98 H Respiratory Rate 22 14 Blood Pressure 158/67 H Pulse Oximetry 95 94 95 Oxygen Delivery Method Nasal Cannula Nasal Cannula Oxygen Flow Rate 2 2 01/25/23 17:47 01/25/23 17:47 01/25/23 18:00 Temperature Pulse Rate 90 88 Respiratory Rate 28 H 33 H Blood Pressure 134/63 Pulse Oximetry 95 95 Oxygen Delivery Method Oxygen Flow Rate 01/25/23 18:15 01/25/23 18:30 01/25/23 18:45 Temperature Pulse Rate 97 H 42 L 95 H Respiratory Rate 26 H 30 H Blood Pressure Pulse Oximetry 94 94 92 Oxygen Delivery Method Oxygen Flow Rate 01/25/23 19:00 01/25/23 19:15 01/25/23 19:30 Temperature Pulse Rate 98 H 98 H 106 H Respiratory Rate 34 H 32 H Blood Pressure Pulse Oximetry 92 92 94 Oxygen Delivery Method Nasal Cannula Oxygen Flow Rate 2 01/25/23 19:45 01/25/23 20:00 01/25/23 20:15 Temperature Pulse Rate 103 H 99 H 102 H Respiratory Rate 35 H 33 H 41 H Blood Pressure Pulse Oximetry 94 94 93 Oxygen Delivery Method Nasal Cannula Oxygen Flow Rate 2 01/25/23 20:17 01/25/23 20:17 01/25/23 20:30 Temperature Pulse Rate 100 H Respiratory Rate 32 H Blood Pressure 138/64 143/67 H Pulse Oximetry 92 Oxygen Delivery Method Nasal Cannula Oxygen Flow Rate 2 01/25/23 20:30 01/25/23 20:36 01/25/23 20:36 Temperature Pulse Rate 98 H 99 H Respiratory Rate 29 H 31 H Blood Pressure 142/62 H Pulse Oximetry 92 92 Oxygen Delivery Method Oxygen Flow Rate 01/25/23 20:45 01/25/23 20:45 01/25/23 21:00 Temperature Pulse Rate 108 H 104 H Respiratory Rate 36 H Blood Pressure 145/66 H Pulse Oximetry 91 92 Oxygen Delivery Method Nasal Cannula Oxygen Flow Rate 2 01/25/23 21:00 01/25/23 21:12 01/25/23 21:12 Temperature Pulse Rate 105 H Respiratory Rate 51 H Blood Pressure 154/68 H 137/78 Pulse Oximetry 91 Oxygen Delivery Method Oxygen Flow Rate 01/25/23 21:15 01/25/23 21:15 01/25/23 21:19 Temperature Pulse Rate 99 H 100 H Respiratory Rate 39 H 30 H Blood Pressure 146/62 H Pulse Oximetry 95 92 Oxygen Delivery Method Oxygen Flow Rate 01/25/23 21:19 01/25/23 21:30 01/25/23 21:30 Temperature Pulse Rate 97 H Respiratory Rate Blood Pressure 145/67 H 138/73 Pulse Oximetry 91 Oxygen Delivery Method Nasal Cannula Oxygen Flow Rate 2 01/25/23 21:45 01/25/23 21:45 01/25/23 21:55 Temperature Pulse Rate 90 83 Respiratory Rate 25 H Blood Pressure 131/63 Pulse Oximetry 93 98 Oxygen Delivery Method Nasal Cannula Nasal Cannula Oxygen Flow Rate 2 2 01/25/23 22:02 01/25/23 22:02 01/25/23 22:02 Temperature 98.2 F Pulse Rate 87 88 Respiratory Rate 33 H Blood Pressure 137/59 L 138/60 Pulse Oximetry 95 Oxygen Delivery Method Nasal Cannula Oxygen Flow Rate 2 01/25/23 22:08 01/25/23 22:08 01/25/23 22:30 Temperature Pulse Rate 93 H Respiratory Rate 41 H Blood Pressure 137/59 L 138/60 Pulse Oximetry Oxygen Delivery Method Oxygen Flow Rate 2 2 2 01/25/23 22:30 01/25/23 23:00 01/25/23 23:00 Temperature Pulse Rate 91 H 94 H Respiratory Rate 53 H 48 H Blood Pressure 133/61 Pulse Oximetry 95 95 Oxygen Delivery Method Oxygen Flow Rate 2 2 2 01/25/23 23:02 01/25/23 23:31 01/25/23 23:31 Temperature Pulse Rate 91 H 92 H Respiratory Rate 37 H 23 Blood Pressure 135/67 Pulse Oximetry 94 95 Oxygen Delivery Method Oxygen Flow Rate 2 2 2 01/26/23 00:00 01/26/23 00:00 01/26/23 00:04 Temperature 98.5 F Pulse Rate 87 86 Respiratory Rate 42 H 30 H Blood Pressure 135/61 Pulse Oximetry 94 95 Oxygen Delivery Method Oxygen Flow Rate 2 2 2 Oxygen Delivery Method Nasal Cannula Oxygen Flow Rate 2 Const General: cooperative, comfortable and well developed Orientation: alert and oriented x3 HENID Head: normal to inspection, normocephalic and atraumatic Face and sinus: normal facial exam Mouth: oral mucosae normal and moist mucous membranes Throat: posterior oropharynx normal Eyes General: appearance normal, both eyes and all related structures Pupils: PERRL EOM: EOM intact bilaterally Neck Neck: normal visual inspection and full ROM Chest Chest: normal inspection of the chest Resp Effort & Inspection: normal respiratory effort and able to speak in complete sentences Auscultation: clear to auscultation bilaterally Cardio Palpation: normal PMI Rate: regular rate Rhythm: regular rhythm Heart Sounds: S1 normal and S2 normal GI Inspection: normal to inspection Palpation: soft and no hepatosplenomegaly Auscultation: normal bowel sounds Skin General: no rashes or lesions noted Lesions: no lesions Rashes: no rashes Trauma: no lacerations or abrasions Neuro General: patient alert, patient awake, patient oriented x3 and no focal motor deficits Cranial Nerves: CN's II-XI intact bilaterally Cognition: normal cognition Speech: speech normal Gait: normal gait Motor: muscle tone normal throughout Sensory Exam: no sensory deficits noted Extrem General: full ROM and no calf tenderness Psych Appearance: grossly normal Mental Status: mental status grossly normal Speech and Movement: speech and movement normal Objective Labs 01/25/23 17:36 01/25/23 17:36 Labs: Laboratory Results - last 24 hr 01/25/23 01/25/23 01/25/23 17:36 18:07 18:40 WBC 7.1 RBC 3.98 L Hgb 11.3 L Hct 35.0 L MCV 88.0 MCH 28.4 MCHC 32.3 RDW 15.8 H Plt Count 388 Neut % (Auto) 83.3 H Lymph % (Auto) 6.7 L [place] % (Auto) 8.1 Eos % (Auto) 1.1 L Baso % (Auto) 0.8 Neut # (Auto) 5900 Lymph # (Auto) 500 L [place] # (Auto) 600 Eos # (Auto) 100 Baso # (Auto) 100 PT INR Sodium 133 L Potassium 4.0 Chloride 95 L Carbon Dioxide 27 BUN 11 Creatinine 0.46 L Estimated GFR > 60 BUN/Creatinine Ratio 23.9 H Glucose 113 H Lactate 1.5 Calcium 9.6 Magnesium Total Bilirubin 0.9 AST 33 ALT 15 Alkaline Phosphatase 75 Ammonia 19 Total Creatine Kinase Troponin I Total Protein 7.1 Albumin 4.0 Globulin 3.1 Albumin/Globulin Ratio 1.3 Lipase 36 Urine Color Yellow Urine Appearance Clear Urine pH 5.5 Ur Specific [place] 1.010 Urine Protein Trace H Urine Glucose (UA) Negative Urine Ketones 2+ H Urine Occult Blood Negative Urine Nitrate Negative Urine Bilirubin 1+ H Ur Bilirubin Confirm Negative Urine Urobilinogen 0.2 Ur Leukocyte Esterase Negative Urine RBC 0-1/hpf Urine WBC 0-1/hpf Ur Squamous Epith Cells 0-1 /hpf Urine Bacteria Occasional (0-1) Hyaline Casts 0-1/lpf Ur Culture Indicated? Cult not indicated 01/25/23 01/25/23 20:07 20:37 WBC RBC Hgb Hct MCV MCH MCHC RDW Plt Count Neut % (Auto) Lymph % (Auto) [place] % (Auto) Eos % (Auto) Baso % (Auto) Neut # (Auto) Lymph # (Auto) [place] # (Auto) Eos # (Auto) Baso # (Auto) PT 97.9 H INR 8.3 H* Sodium Potassium Chloride Carbon Dioxide BUN Creatinine Estimated GFR BUN/Creatinine Ratio Glucose Lactate Calcium Magnesium 1.6 Total Bilirubin AST ALT Alkaline Phosphatase Ammonia Total Creatine Kinase 28 L Troponin I 0.035 H Total Protein Albumin Globulin Albumin/Globulin Ratio Lipase Urine Color Urine Appearance Urine pH Ur Specific [place] Urine Protein Urine Glucose (UA) Urine Ketones Urine Occult Blood Urine Nitrate Urine Bilirubin Ur Bilirubin Confirm Urine Urobilinogen Ur Leukocyte Esterase Urine RBC Urine WBC Ur Squamous Epith Cells Urine Bacteria Hyaline Casts Ur Culture Indicated? Assessment & Plan Assessment and plan (1) Recurrent pleural effusion on right: Status: Acute Plan: Keep the patient n.p.o. after midnight INR in the morning IR consult for therapeutic thoracentesis Pain medications as needed (2) Paroxysmal ventricular fibrillation: Status: Acute Plan: Increase metoprolol to 50 mg twice daily Telemetry (3) Supratherapeutic INR: Status: Acute Plan: Given vitamin K 10 mg in the ED INR daily (4) Constipation: Qualifiers: Constipation type: unspecified constipation type Qualified Code(s): K59.00 - Constipation, unspecified Status: Acute Plan: Laxatives as needed (5) Acute urinary retention: Status: Acute Plan: Most likely due to BPH Straight cath as needed Start Flomax (6) NSCLC of right lung: Status: Acute Plan: Unclear diagnostically. Defer to his alliances consultant. (7) Chronic hypoxemic respiratory failure: Status: Acute Plan: Oxygen supplement as needed to keep his oxygenation greater than 92% Albuterol as needed (8) COPD (chronic obstructive pulmonary disease): Qualifiers: COPD type: emphysema Emphysema type: centrilobular Qualified Code(s): J43.2 - Centrilobular emphysema Status: Chronic Plan: Continue with home treatments (9) BPH (benign prostatic hyperplasia): Qualifiers: Lower urinary tract symptom presence: symptoms present Lower urinary tract symptom detail: nocturia Qualified Code(s): N40.1 - Benign prostatic hyperplasia with lower urinary tract symptoms; R35.1 - Nocturia Status: Chronic Plan: Start Flomax Urology referral as outpatient Time Spent With Patient Time with patient: 50 to 69 minutes with 50% spent counseling/coordinating care Quality VTE Deep Vein Thrombosis/Pulmonary Embolism Present on Admission: No MIPS - Admit I confirm the patient?s Advance Care Plan is present, Code status is documented, Surrogate decision maker is in patient?s record [If Yes, STOP here]: Yes MIPS - Meds 'Current medications' to include all prescriptions, [id number] products, herbals, cannabis/cannabidiol products, and vitamin/mineral/dietary (nutritional) supplements. I have utilized all available resources to obtain, update, or review the patient?s current medications. [If Yes, STOP here]: Yes
[2023-01-26] MEDS: HYDROMORPHONE 0.5 MG INJ IV (04:19)
[2023-01-26 05:36] LABS: Add Manual Diff / Slide Review NO; Basophils Absolute Auto 100 /uL (0-100); Basophils Percent Auto 0.8 % (0-2); Eosinophils Absolute Auto 100 /uL (0-450); Eosinophils Percent Auto 1.6 % (2-4); Hematocrit 32.2 % (41-53); Hemoglobin 10.5 g/dL (13.5-17.5); Lymphocytes Absolute Auto 600 /uL (1100-4500); Lymphocytes Percent Auto 7.6 % (25-40); Mean Corpuscular HGB Conc 32.6 % (30-36); Mean Corpuscular Hemoglobin 28.9 PG (26-34); Mean Corpuscular Volume 88.7 fL (80-100); Monocytes Absolute Auto 700 /uL (0-900); Neutrophils Absolute Auto 5900 /uL (1500-7000); Platelet Count 345 X10^3/uL (150-400); Red Blood Cell Count 3.63 X10^6/uL (4.5-5.9); Red Cell Distribution Width 16.2 % (11.6-14.8); White Blood Cell Count 7.3 X10^3/uL (4.5-11.0)
[2023-01-26 05:41] LABS: Alanine Aminotransferase 12 IU/L (<50); Albumin 3.4 g/dL (3.5-5.0); Albumin Globulin Ratio 1.3 (1.0-2.8); Alkaline Phosphatase 62 U/L (38-126); Aspartate Aminotransferase 25 IU/L (17-59); BUN Creatinine Ratio 20.5 (6-22); Bilirubin Total 0.7 mg/dL (0.2-1.3); Blood Urea Nitrogen 9 mg/dL (9-20); Calcium 9.2 mg/dL (8.4-10.2); Carbon Dioxide 28 mmol/L (22-32); Chloride 97 mmol/L (98-107); Estimated Glomerular Filt Rate > 60 mL/min (>60); Globulin 2.6 g/dL (1.7-4.1); Glucose 86 mg/dL (80-110); HEMOLYSIS 42 (0-50); Magnesium 1.7 mg/dL (1.6-2.3); Sodium 133 mmol/L (137-145)
[2023-01-26 05:45] LABS: Prothrombin Time 79.1 SECONDS (10.1-12.7)
[2023-01-26 05:49] LABS: INR 6.8 (0.9-1.3)
--- NOTE | 2023-01-26 07:02 | PC.NURSE ---
pt was admitted at 2202 from the ED, where he was given vitamin k po for elevated INR; INR recheck this morning remained elevated at 6.[address] Yusuf was notified and orders rec'd; pt to receive 4 FFP; consent obtained from pt; he was medicated once for chest pain which he said was not cardiac, but from the pleural effusion, as it was when he had it drained 2 weeks ago; dilaudid made him comfortable per pt
[2023-01-26] MEDS: ALBUTEROL 2.5 MG/3 ML NEB (ADULT) INH (07:11)
[2023-01-26] MEDS: IPRATROPIUM 0.5 MG/2.5 ML NEB INH (07:11)
[2023-01-26] MEDS: polyethylene glycoL 3350 17 GM POWD.PACK PO (08:48)
[2023-01-26] MEDS: MAGNESIUM SULFATE 2 GM/50 ML PIGGYBACK IV (08:48)
[2023-01-26] MEDS: METOPROLOL ER 50 MG TABLET PO (08:49)
[2023-01-26] MEDS: FUROSEMIDE 40 MG TABLET PO (08:49)
[2023-01-26] MEDS: TERAZOSIN 5 MG CAPSULE 10 MG PO (08:49)
[2023-01-26] MEDS: predniSONE 20 MG TABLET PO (08:49)
[2023-01-26] MEDS: SENNOSIDES 8.6 MG TABLET 17.2 MG PO (08:49)
[2023-01-26] MEDS: FLUTICASONE 120 SPRAY/16 GM SPRAY.SUSP NASAL (08:50)
[2023-01-26] MEDS: TAMSULOSIN 0.4 MG CAPSULE PO (08:52)
--- NOTE | 2023-01-26 13:25 | PC.NURSE ---
Pt met discharge criteria, VSS, RN emphasized to patient importance of following up with pulmonology. RN and PCT did full CHG bath, Gil care, new stat lock, and david care.
--- NOTE | 2023-01-26 13:35 | CM.DANOTE ---
Patient is a 77 yo male who was admitted on 01/25/23 for Constipation/Large PE. Pt has [facility] and [employer] for insurance and his PCP is now Dr. Maurisio Lofton. EMR was reviewed. Per MD, pt with hx of COPD with home 2LO2 at baseline and ongoing PE issues and hx of CVA and admitted for Recurrent large PE and constipation. Pt was given bowel regimen and determined not to need pneumothorax/tap of the fluid at this time and to f/u with his [employer] as they have been working on this for a while. Once pt has bm then medically stable to d/c with outpt f/u. SW met bedside with pt and explained role and pt confirms that he lives at home in [place] alone and is independent with ADLs at baseline and drives. Pt denies hx of HH or SNF recently. Pt mostly expressed his frustrations with outpt Providers. Pt confirms he was established with Dr. Gary Calero and was unaware that Dr. Calero was only a [place] and pt now established with Dr. Maurisio Lofton at [facility] and feels that Dr. Lofton will follow through with his needs and referrals. Pt frustrated with the care of his [employer] and might look into establishing with another but just upset with his ongoing health issues. Pt requested assist with getting his cell phone so he can call his assigned GERRY Alva, a friend of his, and pt states Artie will assist him with f/u with Providers and care at d/c and will transport him home today. Plan: Patient to d/c home via friend POV and outpt f/u with PCP and [employer] and no further SW needs at this time. RUIZ Azevedo Discharge Planning/Care Management Advanced directive, confirm from FAMILY Start: 01/25/23 22:39 Freq: Q24H Status: Discharge Protocol: Document 01/25/23 22:39 BT (Rec: 01/25/23 22:39 BT [id number]) Advance Directive, confirm on record Time 22:39 Person contacted Pt Copy received No CM Discharge Assessment Start: 01/26/23 13:33 Freq: Status: Discharge Protocol: Document 01/26/23 13:33 BF (Rec: 01/26/23 13:35 BF [id number]) Discharge Planning Assessment Assigned [employer] F[employer] Operator RUIZ Mccrary/Assigned Designee Name friend Artie Advance Directives? Yes Advance Directives on File No History Provided By Patient,Medical Record Has Patient been admitted in last 30 No days? Prior Living Arrangements House Household Members none Type of transporation used prior to Drives own vehicle admit Independent with ADL's Yes Is patient alert and oriented? Yes Caregiver for Another No Community Services used prior to Oxygen Therapy admission: Comment Has own home O2 2L at baseline DME Already Rented / Owned Oxygen Barriers to Discharge No Discharge Plan Home Community Services Oxygen Therapy Transportation Arrangement GERRY Alva arrived and provided transport home Additional Comment Pt has scheduled appointment with his [employer] next week Whiteboard Updated in Patient Room with Yes name and ext. # of [employer] Review Status In Process Please Provide Date Initial DC 01/26/23 Assessment Was Performed Next Review Type Continued Stay Review
--- NOTE | 2023-01-26 19:08 | P.DS_ITS ---
History of Present Illness History of Present Illness Chief complaint: constipated/cannot urninate Narrative: Per admitting physician: 77 years old male with history of COPD on 2 L of oxygen at home, paroxysmal atrial fibrillation on warfarin, CAD, status post CABG and PCI, BPH, hypertension, history of CVA, hypertrophic cardiomyopathy, presents to the ER with urinary retention in the last 2 weeks, abdominal distention and constipation with last bowel movement on Wednesday. He also was noted in the ER to be short of breath, requiring more oxygen and tachypneic. In the ER she had straight cath with removal of 4500 cc of urine. She also had 6 seconds of V. tach. Cardiology was contacted and recommended to increase his metoprolol to [address] scan shows right-sided large pleural effusion. The patient had diagnostic and therapeutic thoracentesis 2 weeks ago with removal of 1.5 L. He also follow-up with pulmonology and the work-up for malignancy including PET scan, MRI and fluids cytology was negative. He also was noted to have INR of 8.3 and was given vitamin K 10 mg. Laboratory shows WBC 7.1, H&H 11.3/35, platelets 388, INR 8.3, sodium 133, creatinine 0.46, blood sugar 113, UA negative, abdominal CT scan shows distended urinary bladder with enlarged prostate, finding concerning for bladder outlet obstruction. CT of head shows chronic microvascular ischemic changes, CT of the chest shows redemonstration of complete opacification of right hemithorax with collapse of the lung with large right pleural effusion. Discharge Providers Provider Date of admission: 01/25/23 21:03 Discharge Date: 01/26/23 Primary care physician: Maurisio Lofton MD Consults: 01/25/23 21:11 Consult to Discharge Planning Routine Comment: Discharge provider: Ray Cornejo MD Summary Hospital Course Discharge Diagnosis: 1. Acute urinary retention secondary to BPH 2. Constipation 3. NSVT 4. Chronic respiratory failure on o2 secondary to COPD, right pleural effusion 5. CAD s/p CABG 6. CVA 7. Atrial fibrillation 8. Hypertension 9. Supartherapeutic INR Hospital Course: Mr. Burris presented to the hospital with abdominal discomfort. He was found to have acute urinary retention and an enlarged prostate. He also was found to have constipation. Placement of howell resolved his urinary retention and he was started on tamsulosin. His constipation improved with laxatives and he felt back to his baseline. Unfortunately he has had nearly a year of progressing shortness of breath. He has seen, post form remover, Dr. Mayes multiple times for this and was found to have complete opacification of his right hemithorax. Pleural effusion was done which was transudative and showed no malignant cells. However there is still significant concern for malignancy given the appearance of possible hilar mass and his history of smoking. Dr. Mayes, has recommended PET/CT and bronch as workup for him, but he has not yet arranged this. There was initial thought that the patient might benefit from a thoracentesis. This was discussed with Dr. Mayes who noted no significant improvement in symptoms of the patient after last thoracentesis and very fast reaccumulation, consistent pleural effusion ex vacuo from lung collapse. He initially presented with high INR and plan was to reverse this for thoracentesis, but given discussion with pulmonology he was recommended to continue follow up with pulmonology. At discharge he stated he was breathing at his baseline and he had O2 sats 94-95% on 2L o2 which was his baseline. He was recommended to follow up with urology as he was discharged with a howell and on tamsulosin. He was recommended to follow up next week with PCP and post form remover. Exam Vital Signs (past 8 hours): - 01/26/23 11:15 01/26/23 11:30 01/26/23 11:30 Pulse Rate 85 85 Respiratory Rate 32 H 35 H Blood Pressure 118/56 L Pulse Oximetry 95 95 01/26/23 11:45 01/26/23 12:00 Pulse Rate 86 91 H Respiratory Rate 33 H 38 H Blood Pressure Pulse Oximetry 94 Oxygen Delivery Method Nasal Cannula Oxygen Flow Rate 2 Narrative Exam Narrative: GEN: chronically ill appearing CV: irregular rhythm PULM: absent breath sounds on the right ABD: soft, nontender, nondistended EXT: warm and well perfused with no edema NEURO: awake, alert, oriented, no focal deficits Objective Labs 01/26/23 05:15 01/26/23 05:15 Labs: Laboratory Results - last 24 hr 01/25/23 01/25/23 01/25/23 18:07 20:07 20:37 WBC RBC Hgb Hct MCV MCH MCHC RDW Plt Count Neut % (Auto) Lymph % (Auto) Isabella % (Auto) Eos % (Auto) Baso % (Auto) Neut # (Auto) Lymph # (Auto) Isabella # (Auto) Eos # (Auto) Baso # (Auto) PT 97.9 H INR 8.3 H* Sodium Potassium Chloride Carbon Dioxide BUN Creatinine Estimated GFR BUN/Creatinine Ratio Glucose Lactate 1.5 Calcium Magnesium 1.6 Total Bilirubin AST ALT Alkaline Phosphatase Total Creatine Kinase 28 L Troponin I 0.035 H Total Protein Albumin Globulin Albumin/Globulin Ratio Blood Type 01/26/23 05:15 WBC 7.3 RBC 3.63 L Hgb 10.5 L Hct 32.2 L MCV 88.7 MCH 28.9 MCHC 32.6 RDW 16.2 H Plt Count 345 Neut % (Auto) 80.0 H Lymph % (Auto) 7.6 L Isabella % (Auto) 10.0 Eos % (Auto) 1.6 L Baso % (Auto) 0.8 Neut # (Auto) 5900 Lymph # (Auto) 600 L Isabella # (Auto) 700 Eos # (Auto) 100 Baso # (Auto) 100 PT 79.1 H D INR 6.8 H* Sodium 133 L Potassium 4.0 Chloride 97 L Carbon Dioxide 28 BUN 9 Creatinine 0.44 L Estimated GFR > 60 BUN/Creatinine Ratio 20.5 Glucose 86 Lactate Calcium 9.2 Magnesium 1.7 Total Bilirubin 0.7 AST 25 ALT 12 Alkaline Phosphatase 62 Total Creatine Kinase Troponin I Total Protein 6.0 L Albumin 3.4 L Globulin 2.6 Albumin/Globulin Ratio 1.3 Blood Type O Positive [facility] Medical History (Updated 01/25/23 @ 21:53 by Nuris Araiza DO) Left-sided epistaxis Sinusitis Chronic headache Hypertrophic cardiomyopathy BPH (benign prostatic hyperplasia) (Unknown) History of CVA (cerebrovascular accident) (Unknown) COPD (chronic obstructive pulmonary disease) (Unknown) Psoriasis (Unknown) Stroke (Unknown) Essential hypertension (12/14/16) Chronic atrial fibrillation (12/14/16) Surgical History Hx of angioplasty (1979) Hx of CABG (Unknown) Social History household members: none Smoking Status: Former smoker Discharge Plan Discharge Plan Patient Disposition: Home Provider Discharge Comment: Mr. Burris came in to the hospital with abdominal pain. He had urinary retention from a large prostate and constipation. He had a howell placed which he should keep in until he sees a urologist. He is referred to urology and started on tamsulosin. He has known issues with his lung and is follow by Dr. Mayes. He should follow up with Dr. Mayes as soon as possible. He should go to clinic tomorrow and get his INR checked because it was high and hold his coumadin until tomorrow after he gets this checked. Discharge orders & Medications Prescriptions: New metoprolol succinate 50 mg Tablet Extended Release 24 Hr 50 mg PO BID Qty: 60 0RF tamsulosin [Flomax] 0.4 mg Capsule 0.4 mg PO DAILY Qty: 30 0RF polyethylene glycol 3350 [Miralax] 17 gram powder in packet 17 g PO DAILY Qty: 30 0RF Continued sumatriptan succinate 50 mg tablet 50 mg PO ONCE MDD 100 mg Qty: 20 1RF Rx Instructions: may repeat once after at least 2 hours clobetasol 0.05 % cream 1 applic TOP DAILY PRN (Reason: Psoriasis) Qty: 30 11RF warfarin 2.5 mg tablet See Rx Instructions .ROUTE .COMPLEX Qty: 228 3RF Dose Instruction: Take 2 tablets by mouth on Wednesday; 1 & 1/2 tablets on Wednesday and 1 tablet all other days or as directed. Rx Instructions: Take 2 tablets by mouth on Wednesday; 1 & 1/2 tablets on Wednesday and 1 tablet all other days or as directed. prednisone 20 mg tablet 20 mg PO DAILY Qty: 7 0RF Rx Instructions: take po for 7 days. prednisone 5 mg tablet 5 mg PO DAILY Qty: 60 1RF Rx Instructions: Take the 20mg for 7 days, then begin the 5mg tabs. terazosin 10 mg capsule 10 mg PO QDAY Qty: 90 3RF metoprolol succinate 50 mg tablet extended release 24 hr 50 mg PO BEDTIME Qty: 90 3RF albuterol sulfate 90 mcg/actuation HFA aerosol inhaler 2 puff inhalation Q6H PRN (Reason: shortness of breath or wheezing) Qty: 8.5 11RF ipratropium bromide 17 mcg/actuation HFA aerosol inhaler 2 puff inhalation Q8H Qty: 12.9 11RF (DME) DISABLED PARKING PERMIT See Rx Instructions .ROUTE .MEDSUPPLY Qty: 1 0RF Rx Instructions: I FIND THIS PATIENT TO BE MEDICALLY DISABLED AND QUALIFIED FOR DISABLE PARKING INDICATED, AND SIGNED ON THE ACCOMPANYING [employer] PARK APPLICATION FOR INDIVIDUALS fluticasone propionate 50 mcg/actuation spray,suspension 1 spray intranasal BID Qty: 16 0RF Rx Instructions: administer into each nostril furosemide [Lasix] 40 mg tablet 40 mg PO DAILY Qty: 7 0RF Atrovent HFA 17 mcg/actuation HFA aerosol inhaler 2 puff inhalation QID Qty: 12.9 0RF oxycodone 5 mg capsule 5 mg PO Q6H PRN (Reason: pain) Qty: 120 0RF Follow up/Referrals: Maurisio Lofton MD [Primary Care Provider] - 02/02/23 10:30 am (Appt:02/02 @ 10:[address] Lofton please arrive 15 min prior to scheduled appointment time) Berta Baez MD [Physician] - 1 Week (a refearl has been sent to urology Dr Baez's office will call you with a follow up appointment for: bph, urinary retention, howell placed) Diet/Activity/Treatments Diet: Regular Visit Report/Discharge Packet Stand Alone Forms: Patient Portal/API, Stroke Signs & Symptoms Discharge Data Primary Care Provider: Maurisio Lofton Quality VTE Deep Vein Thrombosis/Pulmonary Embolism Present on Admission: No
== END 2023-01-26 12:55 | disposition home or self-care (01) | DRG 187 ==
LOC: ED 18:01 → AC 21:04 → ICU 21:49
PROVIDERS: Emergency Medicine; Admitting Provider Internal Medicine; Emergency Provider Emergency Medicine; PCP Family Medicine; Referring Provider Emergency Medicine; Visit Provider Internal Medicine
DX: J90 Pleural effusion, not elsewhere classified (principal); I47.29 Other ventricular tachycardia; J96.10 Chronic respiratory failure, unspecified whether with hypoxia or hypercapnia; J44.9 Chronic obstructive pulmonary disease, unspecified; I48.0 Paroxysmal atrial fibrillation; R79.1 Abnormal coagulation profile; K59.00 Constipation, unspecified; J43.2 Centrilobular emphysema; N40.1 Benign prostatic hyperplasia with lower urinary tract symptoms; R35.1 Nocturia; R33.8 Other retention of urine; I25.10 Atherosclerotic heart disease of native coronary artery without angina pectoris; I10 Essential (primary) hypertension; L40.9 Psoriasis, unspecified; Z95.1 Presence of aortocoronary bypass graft; Z79.52 Long term (current) use of systemic steroids; Z79.01 Long term (current) use of anticoagulants; Z87.891 Personal history of nicotine dependence; Z99.81 Dependence on supplemental oxygen
CPT/HCPCS: 36415; 70450; 71250; 74176; 80053; 81001; 82140; 82550; 83605; 83690; 83735; 84484; 85025; 85610; 86900; 86901; 86927; 93005; 94640; 96374; 99285; A9270; J1170; J3475; J7613

== ENCOUNTER 2023-02-01 08:53 | Inpatient (IN) | payer MEDICARE, MEDICAID, SELFPAY ==
[2023-01-25 22:28] VITALS: BMI 28.5
[2023-02-01] VITALS (15 sets, daily range): BP systolic 109–136; BP diastolic 53–93; PULSE 93–110; RESP 18–42; TEMP 36.6–36.7; O2SAT 90–95; BMI 28.5; BMI 27.3
--- NOTE | 2023-02-01 08:58 | ED.SOB ---
HPI - SOB/Dyspnea General Chief Complaint: Shortness of Breath/Dyspnea Stated Complaint: can't breathe Time Seen by Provider: 02/01/23 08:57 Source: patient, family, RN notes reviewed and old records reviewed Mode of arrival: Wheelchair Limitations: no limitations History of Present Illness HPI Narrative: 77-year-old male with history of COPD on 2 L O2 at home, paroxysmal atrial fibrillation on warfarin, CAD, status post CABG and PCI, BPH, hypertension, prior history of stroke, hypertrophic cardiomyopathy presents with persistent pain across his chest increasing shortness of breath for the past week. Patient states he was found to have a pleural effusion was admitted with plan for thoracentesis last week but did not have that performed he states his INR was quite elevated they are not sure if that was the reason it was not performed. Patient states he is had increasing shortness of breath as well as pain across his chest and towards his back. He states the pain has been there all along but is somewhat worse. He does state that he recently stopped his narcotic pain medication but is on sumatriptan for his headaches. He denies fevers or chills. He is had some cough, it is nonproductive. He feels short of breath. He states he has had some increased swelling in his lower extremities he states belly somewhat distended. He has been constipated but having bowel movements. Patient was having urinary retention during hospitalization and has a catheter in place. Patient failure at bedside they are unclear if any new prescriptions or changes. Patient states he is had prior CABG, no pacemaker defibrillator. Denies any known drug allergies. Former tobacco, no regular alcohol, no illicit. Related Data Previous Rx's Medication Instructions Recorded albuterol sulfate 90 mcg/actuation 2 puff inhalation Q6H PRN 12/22/21 aerosol inhaler shortness of breath or wheezing #8.5 grams metoprolol succinate 50 mg 50 mg PO BEDTIME #90 tabs 12/22/21 tablet,extended release 24 hr clobetasol 0.05 % topical cream 1 applic topical DAILY PRN 02/09/22 Psoriasis #30 grams fluticasone propionate 50 1 spray intranasal BID #16 grams 02/18/22 mcg/actuation nasal spray,suspension warfarin 2.5 mg tablet See Rx Instructions .Route 09/24/22 .COMPLEX #228 tabs furosemide 40 mg tablet (Lasix) 40 mg PO DAILY #7 tabs 07/19/23 ipratropium bromide 17 2 puff inhalation QID #12.9 grams 10/14/22 mcg/actuation HFA aerosol inhaler (Atrovent HFA) DISABLED PARKING PERMIT #1 ea 11/26/22 terazosin 10 mg capsule 10 mg PO QDAY #90 caps 12/10/22 oxycodone 5 mg capsule 5 mg PO Q6H PRN pain #120 caps 01/15/23 sumatriptan succinate 50 mg tablet 50 mg PO ONCE headache #20 tabs 01/19/23 polyethylene glycol 3350 17 gram 17 g PO DAILY #30 ea 01/26/23 oral powder packet (Miralax) tamsulosin 0.4 mg capsule (Flomax) 0.4 mg PO DAILY #30 caps 01/26/23 ondansetron HCl 4 mg tablet 4 mg PO Q8H PRN nausea and 01/27/23 vomiting #30 tabs Allergies Allergy/AdvReac Type Severity Reaction Status Date / Time No Known Drug Allergies Allergy Verified 02/01/23 09:07 Review of Systems Review of Systems ROS Unobtainable: All systems reviewed & are unremarkable except as noted in HPI and below Patient History Medical History Left-sided epistaxis Sinusitis Chronic headache Hypertrophic cardiomyopathy BPH (benign prostatic hyperplasia) (Unknown) History of CVA (cerebrovascular accident) (Unknown) COPD (chronic obstructive pulmonary disease) (Unknown) Psoriasis (Unknown) Stroke (Unknown) Essential hypertension (12/14/16) Chronic atrial fibrillation (12/14/16) Surgical History Hx of angioplasty (1979) Hx of CABG (Unknown) Social History household members: none Smoking Status: Former smoker alcohol intake: current Smoking Status: Former smoker alcohol intake frequency: holidays/special occasions only Substance Use Type: does not use Exam Narrative Exam Narrative: GEN: Slowly appearing male, alert and oriented x 3, patient appears to be in moderate distress. HEENT: Atraumatic, pupils are equal round reactive to light, extraocular movements are intact, nares are clear, there is no conjunctival pallor. Throat is clear without any exudates, erythema, tonsillar enlargement or uvular deviation HEART: Tachycardic, Regular rate and rhythm without murmur, clicks, rubs. Patient has edema bilateral lower extremities. LUNGS:Lung decreased on the right, patient has breath sounds on the left, no wheezes noted, patient has diminished but no rales, crackles noted, chest moves symmetrically, patient does have tachypnea speaks in 3-4 word sentences. ABD:bowel sounds normal, soft, non-tender, no guarding, rebound, rigidity, no masses noted, no hepatosplenomegaly :No CVA tenderness MSCL: Non-tender, no muscle atrophy, muscles strength 5/5 upper and lower extremities, full range of motion NEURO:CN 2-12 intact, sensation normal. SKIN: Pale but improves when sat upright and placed on 2 L O2. Initial Vital Signs Initial Vital Signs: Vital Signs Temperature 98 F 02/01/23 08:56 Pulse Rate 105 H 02/01/23 08:56 Respiratory Rate 30 H 02/01/23 08:56 Blood Pressure 134/60 02/01/23 08:56 Pulse Oximetry 92 02/01/23 08:56 Oxygen Delivery Method Nasal Cannula 02/01/23 08:56 Oxygen Flow Rate 3 02/01/23 08:56 Course Orders Ordered: Acetaminophen (Acetaminophen 325 Mg Tablet) 650 mg PO Q6H PRN PRN Reason: Fever/Mild Pain (1-3) Hydrocodone Bitart/Acetaminophen (Hydrocodone/Acet 5/325 Tablet) 1 tab PO Q4H PRN PRN Reason: Pain, Moderate (4-6) Albuterol (Albuterol 2.5 Mg/3 Ml Neb (Adult)) 2.5 mg INH Q6H PRN PRN Reason: shortness of breath or wheezing Calcium Carbonate (Calcium Carbonate 500 Mg Tab) 1,000 mg PO Q4HR PRN PRN Reason: Dyspepsia Furosemide (Furosemide 40 Mg/4 Ml Vial) 40 mg IV DAILY DANIEL Ipratropium [place] (Ipratropium 0.5 Mg/2.5 Ml Neb) 0.5 mg INH [id number] DANIEL Ipratropium [place] (Ipratropium 0.5 Mg/2.5 Ml Neb) 0.5 mg INH Q2H PRN PRN Reason: Shortness Of Breath Metoprolol Succinate (Metoprolol Er 50 Mg Tablet) 50 mg PO BEDTIME [facility] Naloxone HCl (Naloxone 0.4 Mg/Ml Vial) 0.2 mg IV Q2MIN PRN PRN Reason: Opiate Reversal Ondansetron HCl (Ondansetron 4 Mg/2 Ml Inj) 4 mg IV Q8HR PRN PRN Reason: Nausea And Vomiting Ondansetron HCl (Ondansetron 4 Mg Odt) 4 mg PO Q8HR PRN PRN Reason: Nausea And Vomiting Polyethylene Glycol (Polyethylene Glycol 3350 17 Gm Powd.Pack) 17 gm PO DAILY DANIEL Terazosin HCl (Terazosin 5 Mg Capsule) 10 mg PO DAILY [facility] Discontinued Medications Albuterol (Albuterol Hfa Mdi 60 Puff/8 Gm Inhaler) 2 puff INH Q6H PRN PRN Reason: shortness of breath or wheezing Furosemide (Furosemide 40 Mg/4 Ml Vial) 40 mg IV NOW ONE Stop: 02/01/23 09:59 Last Admin: 02/01/23 10:31 Dose: 40 mg Documented By: CHENG Morphine Sulfate (Morphine 4 Mg/Ml Inj) 4 mg IV NOW ONE Stop: 02/01/23 09:07 Last Admin: 02/01/23 09:20 Dose: 4 mg Documented By: CHENG Vital Signs Vital signs: Vital Signs - 8 hr 02/01/23 08:56 02/01/23 09:01 02/01/23 09:02 Temperature 98 F Pulse Rate 105 H 110 H 107 H Respiratory Rate 30 H 30 H 28 H Blood Pressure 134/60 Pulse Oximetry 92 90 L 91 Oxygen Delivery Method Nasal Cannula Nasal Cannula Nasal Cannula Oxygen Flow Rate 3 3 3 02/01/23 09:02 02/01/23 09:30 02/01/23 09:30 Temperature Pulse Rate 95 H Respiratory Rate 28 H Blood Pressure 134/60 120/93 H Pulse Oximetry 93 Oxygen Delivery Method Nasal Cannula Oxygen Flow Rate 4 02/01/23 10:00 02/01/23 10:00 02/01/23 10:30 Temperature Pulse Rate 97 H 94 H Respiratory Rate 26 H 26 H Blood Pressure 121/58 L Pulse Oximetry 92 93 Oxygen Delivery Method Oxygen Flow Rate 02/01/23 10:30 Temperature Pulse Rate Respiratory Rate Blood Pressure 115/56 L Pulse Oximetry 93 Oxygen Delivery Method Nasal Cannula Oxygen Flow Rate 3 MDM - SOB/Dyspnea Lab Data 02/01/23 09:35 11/06/23 09:07 Labs: Lab Results 02/01/23 02/01/23 02/01/23 Range/Units 09:07 09:07 09:07 WBC 7.8 (4.5-11.0) X10^3/uL RBC 3.95 L (4.5-5.9) X10^6/uL Hgb 11.3 L (13.5-17.5) g/dL Hct 34.3 L (41-53) % MCV 86.9 (80-100) fL MCH 28.6 (26-34) PG MCHC 32.9 (30-36) % RDW 15.6 H (11.6-14.8) % Plt Count 331 (150-400) X10^3/uL Neut % (Auto) 80.8 H (50-75) % Lymph % (Auto) 7.4 L (25-40) % Nobles % (Auto) 10.4 (3-14) % Eos % (Auto) 1.2 L (2-4) % Baso % (Auto) 0.2 (0-2) % Neut # (Auto) 6300 (9056-7196) /uL Lymph # (Auto) 600 L (3383-4575) /uL Nobles # (Auto) 800 (0-900) /uL Eos # (Auto) 100 (0-450) /uL Baso # (Auto) 0 (0-100) /uL PT 32.4 H D (10.1-12.7) SECONDS INR 2.8 H (0.9-1.3) APTT 39 H (26-36) SECONDS Sodium Cancelled 134 L Potassium Cancelled 4.1 Chloride Cancelled Carbon Dioxide BUN Creatinine Estimated GFR BUN/Creatinine Ratio Glucose Lactate (0.7-2.1) mmol/L Calcium Total Bilirubin AST ALT Alkaline Phosphatase Total Creatine Kinase (55-170) U/L Troponin I NT-Pro-B Natriuret Pep (<450) pg/mL Total Protein Albumin Globulin Albumin/Globulin Ratio Lipase (23-300) U/L 02/01/23 02/01/23 02/01/23 Range/Units 09:07 09:07 09:07 WBC (4.5-11.0) X10^3/uL RBC (4.5-5.9) X10^6/uL Hgb (13.5-17.5) g/dL Hct (41-53) % MCV (80-100) fL MCH (26-34) PG MCHC (30-36) % RDW (11.6-14.8) % Plt Count (150-400) X10^3/uL Neut % (Auto) (50-75) % Lymph % (Auto) (25-40) % Nobles % (Auto) (3-14) % Eos % (Auto) (2-4) % Baso % (Auto) (0-2) % Neut # (Auto) (5230-3859) /uL Lymph # (Auto) (7351-9290) /uL Nobles # (Auto) (0-900) /uL Eos # (Auto) (0-450) /uL Baso # (Auto) (0-100) /uL PT (10.1-12.7) SECONDS INR (0.9-1.3) APTT (26-36) SECONDS Sodium Potassium Chloride 93 L Carbon Dioxide Cancelled 34 H BUN Cancelled 8 L Creatinine Cancelled Estimated GFR BUN/Creatinine Ratio Glucose Lactate (0.7-2.1) mmol/L Calcium Total Bilirubin AST ALT Alkaline Phosphatase Total Creatine Kinase (55-170) U/L Troponin I NT-Pro-B Natriuret Pep (<450) pg/mL Total Protein Albumin Globulin Albumin/Globulin Ratio Lipase (23-300) U/L 02/01/23 02/01/23 02/01/23 Range/Units 09:07 09:07 09:07 WBC (4.5-11.0) X10^3/uL RBC (4.5-5.9) X10^6/uL Hgb (13.5-17.5) g/dL Hct (41-53) % MCV (80-100) fL MCH (26-34) PG MCHC (30-36) % RDW (11.6-14.8) % Plt Count (150-400) X10^3/uL Neut % (Auto) (50-75) % Lymph % (Auto) (25-40) % Nobles % (Auto) (3-14) % Eos % (Auto) (2-4) % Baso % (Auto) (0-2) % Neut # (Auto) (8114-2353) /uL Lymph # (Auto) (6786-2425) /uL Nobles # (Auto) (0-900) /uL Eos # (Auto) (0-450) /uL Baso # (Auto) (0-100) /uL PT (10.1-12.7) SECONDS INR (0.9-1.3) APTT (26-36) SECONDS Sodium Potassium Chloride Carbon Dioxide BUN Creatinine 0.62 L Estimated GFR Cancelled > 60 BUN/Creatinine Ratio Cancelled 12.9 Glucose Cancelled Lactate (0.7-2.1) mmol/L Calcium Total Bilirubin AST ALT Alkaline Phosphatase Total Creatine Kinase (55-170) U/L Troponin I NT-Pro-B Natriuret Pep (<450) pg/mL Total Protein Albumin Globulin Albumin/Globulin Ratio Lipase (23-300) U/L 02/01/23 02/01/23 02/01/23 Range/Units 09:07 09:07 09:07 WBC (4.5-11.0) X10^3/uL RBC (4.5-5.9) X10^6/uL Hgb (13.5-17.5) g/dL Hct (41-53) % MCV (80-100) fL MCH (26-34) PG MCHC (30-36) % RDW (11.6-14.8) % Plt Count (150-400) X10^3/uL Neut % (Auto) (50-75) % Lymph % (Auto) (25-40) % Nobles % (Auto) (3-14) % Eos % (Auto) (2-4) % Baso % (Auto) (0-2) % Neut # (Auto) (0279-0591) /uL Lymph # (Auto) (4366-9384) /uL Nobles # (Auto) (0-900) /uL Eos # (Auto) (0-450) /uL Baso # (Auto) (0-100) /uL PT (10.1-12.7) SECONDS INR (0.9-1.3) APTT (26-36) SECONDS Sodium Potassium Chloride Carbon Dioxide BUN Creatinine Estimated GFR BUN/Creatinine Ratio Glucose 121 H Lactate 1.6 (0.7-2.1) mmol/L Calcium Cancelled 9.5 Total Bilirubin Cancelled 1.0 AST Cancelled ALT Alkaline Phosphatase Total Creatine Kinase (55-170) U/L Troponin I NT-Pro-B Natriuret Pep (<450) pg/mL Total Protein Albumin Globulin Albumin/Globulin Ratio Lipase (23-300) U/L 02/01/23 02/01/23 02/01/23 Range/Units 09:07 09:07 09:07 WBC (4.5-11.0) X10^3/uL RBC (4.5-5.9) X10^6/uL Hgb (13.5-17.5) g/dL Hct (41-53) % MCV (80-100) fL MCH (26-34) PG MCHC (30-36) % RDW (11.6-14.8) % Plt Count (150-400) X10^3/uL Neut % (Auto) (50-75) % Lymph % (Auto) (25-40) % Nobles % (Auto) (3-14) % Eos % (Auto) (2-4) % Baso % (Auto) (0-2) % Neut # (Auto) (5150-2960) /uL Lymph # (Auto) (1300-7461) /uL Nobles # (Auto) (0-900) /uL Eos # (Auto) (0-450) /uL Baso # (Auto) (0-100) /uL PT (10.1-12.7) SECONDS INR (0.9-1.3) APTT (26-36) SECONDS Sodium Potassium Chloride Carbon Dioxide BUN Creatinine Estimated GFR BUN/Creatinine Ratio Glucose Lactate (0.7-2.1) mmol/L Calcium Total Bilirubin AST 22 ALT Cancelled 15 Alkaline Phosphatase Cancelled 82 Total Creatine Kinase < 20 L (55-170) U/L Troponin I Cancelled NT-Pro-B Natriuret Pep (<450) pg/mL Total Protein Albumin Globulin Albumin/Globulin Ratio Lipase (23-300) U/L 02/01/23 02/01/23 02/01/23 Range/Units 09:07 09:07 09:07 WBC (4.5-11.0) X10^3/uL RBC (4.5-5.9) X10^6/uL Hgb (13.5-17.5) g/dL Hct (41-53) % MCV (80-100) fL MCH (26-34) PG MCHC (30-36) % RDW (11.6-14.8) % Plt Count (150-400) X10^3/uL Neut % (Auto) (50-75) % Lymph % (Auto) (25-40) % Nobles % (Auto) (3-14) % Eos % (Auto) (2-4) % Baso % (Auto) (0-2) % Neut # (Auto) (3473-5167) /uL Lymph # (Auto) (4728-8286) /uL Nobles # (Auto) (0-900) /uL Eos # (Auto) (0-450) /uL Baso # (Auto) (0-100) /uL PT (10.1-12.7) SECONDS INR (0.9-1.3) APTT (26-36) SECONDS Sodium Potassium Chloride Carbon Dioxide BUN Creatinine Estimated GFR BUN/Creatinine Ratio Glucose Lactate (0.7-2.1) mmol/L Calcium Total Bilirubin AST ALT Alkaline Phosphatase Total Creatine Kinase (55-170) U/L Troponin I 0.033 NT-Pro-B Natriuret Pep 4670 H (<450) pg/mL Total Protein Cancelled 6.5 Albumin Cancelled 3.6 Globulin Cancelled Albumin/Globulin Ratio Lipase (23-300) U/L 02/01/23 02/01/23 02/01/23 Range/Units 09:07 09:07 09:35 WBC 7.4 (4.5-11.0) X10^3/uL RBC 3.89 L (4.5-5.9) X10^6/uL Hgb 11.0 L (13.5-17.5) g/dL Hct 33.9 L (41-53) % MCV 87.1 (80-100) fL MCH 28.3 (26-34) PG MCHC 32.5 (30-36) % RDW 15.9 H (11.6-14.8) % Plt Count 336 (150-400) X10^3/uL Neut % (Auto) 80.4 H (50-75) % Lymph % (Auto) 7.3 L (25-40) % Nobles % (Auto) 10.2 (3-14) % Eos % (Auto) 1.2 L (2-4) % Baso % (Auto) 0.9 (0-2) % Neut # (Auto) 6000 (9286-2629) /uL Lymph # (Auto) 500 L (0514-3115) /uL Nobles # (Auto) 800 (0-900) /uL Eos # (Auto) 100 (0-450) /uL Baso # (Auto) 100 (0-100) /uL PT (10.1-12.7) SECONDS INR (0.9-1.3) APTT (26-36) SECONDS Sodium Potassium Chloride Carbon Dioxide BUN Creatinine Estimated GFR BUN/Creatinine Ratio Glucose Lactate (0.7-2.1) mmol/L Calcium Total Bilirubin AST ALT Alkaline Phosphatase Total Creatine Kinase (55-170) U/L Troponin I NT-Pro-B Natriuret Pep (<450) pg/mL Total Protein Albumin Globulin 2.9 Albumin/Globulin Ratio Cancelled 1.2 Lipase 57 D (23-300) U/L Imaging Data Chest x-ray: My Impression: Complete opacification of right lung, from comparison to prior appears fairly similar. Radiologist's Impression: [address] [address] XRay Report Signed Patient: Pawel Burris MR#: [id number] : 1945 Acct:[id number] Age/Sex: 77 / M Date of Service: 02/01/23 Loc: ED Accession Number: [id number] Procedure: XR chest 1V Ordering Provider: Melanie Weiss D.O. PROCEDURE: XR CHEST 1V INDICATIONS: Shortness of breath TECHNIQUE: One view of the chest was acquired. COMPARISON: [facility], CT, CT CHEST WO CON, 01/25/2023, 17:29. [facility], CR, XR CHEST 1V, 01/14/2023, 16:45. FINDINGS: Surgical changes and devices: Remote CABG. Lungs and pleura: Continued complete opacification of the right hemithorax. No contralateral shift. Developing patchy densities in the left lung, possibly representing pulmonary edema or developing left-sided pneumonia. Mediastinum: Mediastinal contours appear normal. Heart size is normal. Bones and chest wall: No suspicious bony lesions. Overlying soft tissues appear unremarkable. IMPRESSION: 1. Continued complete opacification of the left hemithorax, a combination of consolidation, atelectasis, in fluid. 2. Worsening left lung field, suggesting either pulmonary edema or developing pneumonia. Dictated by: Saeed Ortiz M.D. on 02/01/2023 at 9:46 Approved by: Saeed Ortiz M.D. on 02/01/2023 at 9:48 ECG Data Attestation: I personally reviewed and interpreted this ECG as follows: Interpretation: EKG has significant motion artifact. On telemetry patient does appear to be in AFib consistent with electronic read of his EKG. Rate was 101 QRS is 116. No obvious ST elevation but very difficult to read will attempt to repeat. MDM Narrative Medical decision making narrative: 77-year-old male with known COPD, cardiac issues with known opacification of his right lung had CT of his chest on 01/25/2023 while hospitalized which redemonstrated complete opacification of the right hemithorax with collapse of the lung likely some pr imposed consolidation and right large effusion oral similar to prior patient family state there was discussion about thoracentesis was not performed but patient INR was quite elevated during his hospital stay may have contributed. Patient continues to have complete opacification on his chest x-ray but does have some worsening on the left, they have a component of CHF, his hemoglobin is consistent at 11 no elevated white count, he is afebrile he is not having increased hypoxia, INR today is 2.8 improved from 6.9 and 01/26. Sodium of 134 potassium is 4 1 chloride 93 CO2 34 with BUN 8 appropriate renal function glucose 121 with lactate, normal LFTs troponins 0.033 and a BNP of 4670. Patient has chest pain but has persistent x 1 week and even longer and seems more consistent with irritation from fluid. Patient will likely benefit from for thoracentesis. INR still little elevated for this he is stable to moment but discussed with hospitalist to keep well INR trends down and diurese to see if this also improves patient's symptoms. Spoke with Dr. Woods covering for Dr. Lofton. Accepts for admission asked if we can reach out to pulmonology to see if they would be willing to see patient and do thoracentesis we did discuss alternative option is radiology if needed. Patient appears stable to wait but has had some increasing O2 requirement up to 4 L. Followed up with patient, he is feeling improved after the pain medication he looks much more comfortable still has some increasing O2 requirement. He is agreeable to the plan for admission. Pulmonology paged: Spoke with Dr. Mayes pulmonology. He is quite familiar with the patient. After review patient noted they felt like it was much improved he states last time when he spoke with the patient needed think he was improved after thoracentesis but states he is happy to see him tomorrow, asked if we can give a dose of vitamin K if necessary with plan for potential thoracentesis tomorrow. Discharge Plan Departure Patient Disposition: Admitted As Inpatient Clinical Impression: Large pleural effusion CHF (congestive heart failure) Qualifiers: Heart failure type: unspecified Heart failure chronicity: unspecified Qualified Code(s): I50.9 - Heart failure, unspecified Admit Date/Time: 02/01/23 10:38 Admit Provider: Ximena Woods
--- NOTE | 2023-02-01 09:07 | DI.RAD.S_ITS ---
PROCEDURE: XR CHEST 1V INDICATIONS: Shortness of breath TECHNIQUE: One view of the chest was acquired. COMPARISON: [facility], CT, CT CHEST WO CON, 01/25/2023, 17:29. [facility], CR, XR CHEST 1V, 01/14/2023, 16:45. FINDINGS: Surgical changes and devices: Remote CABG. Lungs and pleura: Continued complete opacification of the right hemithorax. No contralateral shift. Developing patchy densities in the left lung, possibly representing pulmonary edema or developing left-sided pneumonia. Mediastinum: Mediastinal contours appear normal. Heart size is normal. Bones and chest wall: No suspicious bony lesions. Overlying soft tissues appear unremarkable. IMPRESSION: 1. Continued complete opacification of the left hemithorax, a combination of consolidation, atelectasis, in fluid. 2. Worsening left lung field, suggesting either pulmonary edema or developing pneumonia. Dictated by: Saeed Ortiz M.D. on 02/01/2023 at 9:46 Approved by: Saeed Ortiz M.D. on 02/01/2023 at 9:48
[2023-02-01] MEDS: MORPHINE 4 MG/ML INJ IV (09:20)
[2023-02-01 09:22] LABS: Add Manual Diff / Slide Review NO; Basophils Absolute Auto 0 /uL (0-100); Basophils Percent Auto 0.2 % (0-2); Eosinophils Absolute Auto 100 /uL (0-450); Eosinophils Percent Auto 1.2 % (2-4); Hematocrit 34.3 % (41-53); Hemoglobin 11.3 g/dL (13.5-17.5); Lymphocytes Absolute Auto 600 /uL (1100-4500); Lymphocytes Percent Auto 7.4 % (25-40); Mean Corpuscular HGB Conc 32.9 % (30-36); Mean Corpuscular Hemoglobin 28.6 PG (26-34); Mean Corpuscular Volume 86.9 fL (80-100); Monocytes Absolute Auto 800 /uL (0-900); Monocytes Percent Auto 10.4 % (3-14); Neutrophils Absolute Auto 6300 /uL (1500-7000); Neutrophils Percent Auto 80.8 % (50-75); Platelet Count 331 X10^3/uL (150-400); Red Blood Cell Count 3.95 X10^6/uL (4.5-5.9); Red Cell Distribution Width 15.6 % (11.6-14.8); White Blood Cell Count 7.8 X10^3/uL (4.5-11.0)
[2023-02-01 09:33] LABS: INR 2.8 (0.9-1.3); Prothrombin Time 32.4 SECONDS (10.1-12.7)
[2023-02-01 09:35] LABS: PTT Partial Thromboplastin Tim 39 SECONDS (26-36)
[2023-02-01 09:37] LABS: Alanine Aminotransferase 15 IU/L (<50); Albumin 3.6 g/dL (3.5-5.0); Albumin Globulin Ratio 1.2 (1.0-2.8); Alkaline Phosphatase 82 U/L (38-126); Aspartate Aminotransferase 22 IU/L (17-59); BUN Creatinine Ratio 12.9 (6-22); Blood Urea Nitrogen 8 mg/dL (9-20); Calcium 9.5 mg/dL (8.4-10.2); Carbon Dioxide 34 mmol/L (22-32); Chloride 93 mmol/L (98-107); Creatine Kinase < 20 U/L (55-170); Estimated Glomerular Filt Rate > 60 mL/min (>60); Globulin 2.9 g/dL (1.7-4.1); Glucose 121 mg/dL (80-110); HEMOLYSIS < 15 (0-50); Lipase 57 U/L (23-300); Potassium 4.1 mmol/L (3.4-5.1); Sodium 134 mmol/L (137-145); Total Protein 6.5 g/dL (6.3-8.2)
[2023-02-01 09:38] LABS: Lactate (Lactic Acid) 1.6 mmol/L (0.7-2.1)
[2023-02-01 09:45] LABS: Add Manual Diff / Slide Review NO; Basophils Absolute Auto 100 /uL (0-100); Basophils Percent Auto 0.9 % (0-2); Eosinophils Absolute Auto 100 /uL (0-450); Eosinophils Percent Auto 1.2 % (2-4); Hematocrit 33.9 % (41-53); Lymphocytes Absolute Auto 500 /uL (1100-4500); Lymphocytes Percent Auto 7.3 % (25-40); Mean Corpuscular HGB Conc 32.5 % (30-36); Mean Corpuscular Hemoglobin 28.3 PG (26-34); Mean Corpuscular Volume 87.1 fL (80-100); Monocytes Absolute Auto 800 /uL (0-900); Monocytes Percent Auto 10.2 % (3-14); Neutrophils Absolute Auto 6000 /uL (1500-7000); Neutrophils Percent Auto 80.4 % (50-75); Platelet Count 336 X10^3/uL (150-400); Red Blood Cell Count 3.89 X10^6/uL (4.5-5.9); Red Cell Distribution Width 15.9 % (11.6-14.8); White Blood Cell Count 7.4 X10^3/uL (4.5-11.0)
[2023-02-01 09:46] LABS: NT-proBNP (BNP-Adult 18+) 4670 pg/mL (<450)
[2023-02-01 09:49] LABS: Troponin I 0.033 ng/mL (0.01-0.034)
[2023-02-01] MEDS: FUROSEMIDE 40 MG/4 ML VIAL IV (10:31)
--- NOTE | 2023-02-01 10:39 | PC.NURSE ---
Dr. Weiss at bedside w/ pt and POA
--- NOTE | 2023-02-01 10:56 | PM.CN ---
History of Present Illness Consult details Chief complaint: can't breathe Narrative: Mr. Pawel Burris is well known to me, a 77 yo with COPD, former smoker, AF on anticoagulation with warfarin, CAD s/p CABG and PCI, CVA, HTN, psoriasis, who had dyspnea for 11 months associated with increasing right pleural effusion, NT-proBNP > 3000 and CXR with initiall hilar prominence and now multiple CT with volume loss of right lung due to suspected lung mass with right thoracentesis 01/07/23 of 1.55L with some/minimal symptomatic relief and negative cytology, headaches ruled out malignancy with CT head with contrast and pending PET/CT (offered bronchoscopy at [facility] but unsure he can travel to [place] with oxygen supplies he has available), acute hypoxemic respiratory failure on 3L oxygen who presents with increasing shortness of breath to ED in setting of NT-proBNP > 4600. He has new left lung infiltrates as well as pain improved. He is being admitted for diuresis and I have requested Dr. Weiss to given vitamin K and we will perform thoracentesis tomorrow. Unfortunately his malignancy workup has been pending still including PET/CT and logistics with him traveling to [place] for EBUS. Meds Home Medications and Allergies Home Medications Medication Instructions Recorded Confirmed Type albuterol sulfate 90 mcg/actuation 2 puff inhalation Q6H PRN 12/22/21 01/27/23 Rx aerosol inhaler shortness of breath or wheezing #8.5 grams metoprolol succinate 50 mg 50 mg PO BEDTIME #90 tabs 12/22/21 01/27/23 Rx tablet,extended release 24 hr clobetasol 0.05 % topical cream 1 applic topical DAILY PRN 02/09/22 01/27/23 Rx Psoriasis #30 grams fluticasone propionate 50 1 spray intranasal BID #16 grams 02/18/22 01/27/23 Rx mcg/actuation nasal spray,suspension warfarin 2.5 mg tablet See Rx Instructions .Route 09/24/22 01/27/23 Rx .COMPLEX #228 tabs furosemide 40 mg tablet (Lasix) 40 mg PO DAILY #7 tabs 10/14/22 01/27/23 Rx ipratropium bromide 17 2 puff inhalation QID #12.9 grams 10/14/22 01/27/23 Rx mcg/actuation HFA aerosol inhaler (Atrovent HFA) DISABLED PARKING PERMIT #1 ea 11/26/22 01/27/23 Rx prednisone 5 mg tablet 5 mg PO DAILY #60 tabs 11/27/22 01/27/23 Rx terazosin 10 mg capsule 10 mg PO QDAY #90 caps 12/10/22 01/27/23 Rx oxycodone 5 mg capsule 5 mg PO Q6H PRN pain #120 caps 01/15/23 01/27/23 Rx sumatriptan succinate 50 mg tablet 50 mg PO ONCE headache #20 tabs 01/19/23 01/27/23 Rx metoprolol succinate 50 mg 50 mg PO BID #60 tabs 01/26/23 01/27/23 Rx tablet,extended release 24 hr polyethylene glycol 3350 17 gram 17 g PO DAILY #30 ea 01/26/23 01/27/23 Rx oral powder packet (Miralax) tamsulosin 0.4 mg capsule (Flomax) 0.4 mg PO DAILY #30 caps 01/26/23 01/27/23 Rx ondansetron HCl 4 mg tablet 4 mg PO Q8H PRN nausea and 01/27/23 01/27/23 Rx vomiting #30 tabs Allergies Allergy/AdvReac Type Severity Reaction Status Date / Time No Known Drug Allergies Allergy Verified 02/01/23 09:07 Exam Vital Signs (past 8 hours): - 02/01/23 08:56 02/01/23 09:01 02/01/23 09:02 Temperature 98 F Pulse Rate 105 H 110 H 107 H Respiratory Rate 30 H 30 H 28 H Blood Pressure 134/60 Pulse Oximetry 92 90 L 91 Oxygen Delivery Method Nasal Cannula Nasal Cannula Nasal Cannula Oxygen Flow Rate 3 3 3 02/01/23 09:02 02/01/23 09:30 02/01/23 09:30 Temperature Pulse Rate 95 H Respiratory Rate 28 H Blood Pressure 134/60 120/93 H Pulse Oximetry 93 Oxygen Delivery Method Nasal Cannula Oxygen Flow Rate 4 02/01/23 10:00 02/01/23 10:00 02/01/23 10:30 Temperature Pulse Rate 97 H 94 H Respiratory Rate 26 H 26 H Blood Pressure 121/58 L Pulse Oximetry 92 93 Oxygen Delivery Method Oxygen Flow Rate 02/01/23 10:30 Temperature Pulse Rate Respiratory Rate Blood Pressure 115/56 L Pulse Oximetry 93 Oxygen Delivery Method Nasal Cannula Oxygen Flow Rate 3 Oxygen Delivery Method Nasal Cannula Oxygen Flow Rate 3 Objective Labs 02/01/23 09:35 02/01/23 09:07 Labs: Laboratory Results - last 24 hr 02/01/23 02/01/23 02/01/23 09:07 09:07 09:07 WBC 7.8 RBC 3.95 L Hgb 11.3 L Hct 34.3 L MCV 86.9 MCH 28.6 MCHC 32.9 RDW 15.6 H Plt Count 331 Neut % (Auto) 80.8 H Lymph % (Auto) 7.4 L [place] % (Auto) 10.4 Eos % (Auto) 1.2 L Baso % (Auto) 0.2 Neut # (Auto) 6300 Lymph # (Auto) 600 L [place] # (Auto) 800 Eos # (Auto) 100 Baso # (Auto) 0 PT 32.4 H D INR 2.8 H APTT 39 H Sodium Cancelled 134 L Potassium Cancelled 4.1 Chloride Cancelled Carbon Dioxide BUN Creatinine Estimated GFR BUN/Creatinine Ratio Glucose Lactate Calcium Total Bilirubin AST ALT Alkaline Phosphatase Total Creatine Kinase Troponin I NT-Pro-B Natriuret Pep Total Protein Albumin Globulin Albumin/Globulin Ratio Lipase 02/01/23 02/01/23 02/01/23 09:07 09:07 09:07 WBC RBC Hgb Hct MCV MCH MCHC RDW Plt Count Neut % (Auto) Lymph % (Auto) [place] % (Auto) Eos % (Auto) Baso % (Auto) Neut # (Auto) Lymph # (Auto) [place] # (Auto) Eos # (Auto) Baso # (Auto) PT INR APTT Sodium Potassium Chloride 93 L Carbon Dioxide Cancelled 34 H BUN Cancelled 8 L Creatinine Cancelled Estimated GFR BUN/Creatinine Ratio Glucose Lactate Calcium Total Bilirubin AST ALT Alkaline Phosphatase Total Creatine Kinase Troponin I NT-Pro-B Natriuret Pep Total Protein Albumin Globulin Albumin/Globulin Ratio Lipase 02/01/23 02/01/23 02/01/23 09:07 09:07 09:07 WBC RBC Hgb Hct MCV MCH MCHC RDW Plt Count Neut % (Auto) Lymph % (Auto) [place] % (Auto) Eos % (Auto) Baso % (Auto) Neut # (Auto) Lymph # (Auto) [place] # (Auto) Eos # (Auto) Baso # (Auto) PT INR APTT Sodium Potassium Chloride Carbon Dioxide BUN Creatinine 0.62 L Estimated GFR Cancelled > 60 BUN/Creatinine Ratio Cancelled 12.9 Glucose Cancelled Lactate Calcium Total Bilirubin AST ALT Alkaline Phosphatase Total Creatine Kinase Troponin I NT-Pro-B Natriuret Pep Total Protein Albumin Globulin Albumin/Globulin Ratio Lipase 02/01/23 02/01/23 02/01/23 09:07 09:07 09:07 WBC RBC Hgb Hct MCV MCH MCHC RDW Plt Count Neut % (Auto) Lymph % (Auto) [place] % (Auto) Eos % (Auto) Baso % (Auto) Neut # (Auto) Lymph # (Auto) [place] # (Auto) Eos # (Auto) Baso # (Auto) PT INR APTT Sodium Potassium Chloride Carbon Dioxide BUN Creatinine Estimated GFR BUN/Creatinine Ratio Glucose 121 H Lactate 1.6 Calcium Cancelled 9.5 Total Bilirubin Cancelled 1.0 AST Cancelled ALT Alkaline Phosphatase Total Creatine Kinase Troponin I NT-Pro-B Natriuret Pep Total Protein Albumin Globulin Albumin/Globulin Ratio Lipase 02/01/23 02/01/23 02/01/23 09:07 09:07 09:07 WBC RBC Hgb Hct MCV MCH MCHC RDW Plt Count Neut % (Auto) Lymph % (Auto) [place] % (Auto) Eos % (Auto) Baso % (Auto) Neut # (Auto) Lymph # (Auto) [place] # (Auto) Eos # (Auto) Baso # (Auto) PT INR APTT Sodium Potassium Chloride Carbon Dioxide BUN Creatinine Estimated GFR BUN/Creatinine Ratio Glucose Lactate Calcium Total Bilirubin AST 22 ALT Cancelled 15 Alkaline Phosphatase Cancelled 82 Total Creatine Kinase < 20 L Troponin I Cancelled NT-Pro-B Natriuret Pep Total Protein Albumin Globulin Albumin/Globulin Ratio Lipase 02/01/23 02/01/23 02/01/23 09:07 09:07 09:07 WBC RBC Hgb Hct MCV MCH MCHC RDW Plt Count Neut % (Auto) Lymph % (Auto) [place] % (Auto) Eos % (Auto) Baso % (Auto) Neut # (Auto) Lymph # (Auto) [place] # (Auto) Eos # (Auto) Baso # (Auto) PT INR APTT Sodium Potassium Chloride Carbon Dioxide BUN Creatinine Estimated GFR BUN/Creatinine Ratio Glucose Lactate Calcium Total Bilirubin AST ALT Alkaline Phosphatase Total Creatine Kinase Troponin I 0.033 NT-Pro-B Natriuret Pep 4670 H Total Protein Cancelled 6.5 Albumin Cancelled 3.6 Globulin Cancelled Albumin/Globulin Ratio Lipase 02/01/23 02/01/23 02/01/23 09:07 09:07 09:35 WBC 7.4 RBC 3.89 L Hgb 11.0 L Hct 33.9 L MCV 87.1 MCH 28.3 MCHC 32.5 RDW 15.9 H Plt Count 336 Neut % (Auto) 80.4 H Lymph % (Auto) 7.3 L [place] % (Auto) 10.2 Eos % (Auto) 1.2 L Baso % (Auto) 0.9 Neut # (Auto) 6000 Lymph # (Auto) 500 L [place] # (Auto) 800 Eos # (Auto) 100 Baso # (Auto) 100 PT INR APTT Sodium Potassium Chloride Carbon Dioxide BUN Creatinine Estimated GFR BUN/Creatinine Ratio Glucose Lactate Calcium Total Bilirubin AST ALT Alkaline Phosphatase Total Creatine Kinase Troponin I NT-Pro-B Natriuret Pep Total Protein Albumin Globulin 2.9 Albumin/Globulin Ratio Cancelled 1.2 Lipase 57 D COUNTS INCLUDE 234 BEDS AT THE [facility] Medical History Left-sided epistaxis Sinusitis Chronic headache Hypertrophic cardiomyopathy BPH (benign prostatic hyperplasia) (Unknown) History of CVA (cerebrovascular accident) (Unknown) COPD (chronic obstructive pulmonary disease) (Unknown) Psoriasis (Unknown) Stroke (Unknown) Essential hypertension (12/14/16) Chronic atrial fibrillation (12/14/16) Surgical History Hx of angioplasty (1979) Hx of CABG (Unknown) Social History household members: none Tobacco & Substance Use Smoking Status: Former smoker
--- NOTE | 2023-02-01 13:39 | PC.ADMIT ---
Admission Note: Patient arrived to room 218 from ER, able to stand and pivot transfer to bed. Very short of breath with any exertion, lung sounds severely decreased, especially to right side. On 3L NC with SpO2 low 90s. Denies pain. EVEA Artie at bedside. Oriented to room and to call light/bed/tv controls. Call light within reach, bed alarm on for safety (pt has had falls at home). Clothing, shoes, and cell phone at bedside. The patient,Pawel Burris,77 y/o, was given written information regarding hospital policies, unit procedures and contact persons. Patient's smoking status: Former smoker. Vital Signs - 8 hr 02/01/23 08:56 02/01/23 09:01 02/01/23 09:02 Temperature 98 F Pulse Rate 105 H 110 H 107 H Respiratory Rate 30 H 30 H 28 H Blood Pressure 134/60 Pulse Oximetry 92 90 L 91 Oxygen Delivery Method Nasal Cannula Nasal Cannula Nasal Cannula Oxygen Flow Rate 3 3 3 02/01/23 09:02 02/01/23 09:30 02/01/23 09:30 Temperature Pulse Rate 95 H Respiratory Rate 28 H Blood Pressure 134/60 120/93 H Pulse Oximetry 93 Oxygen Delivery Method Nasal Cannula Oxygen Flow Rate 4 02/01/23 10:00 02/01/23 10:00 02/01/23 10:30 Temperature Pulse Rate 97 H 94 H Respiratory Rate 26 H 26 H Blood Pressure 121/58 L Pulse Oximetry 92 93 Oxygen Delivery Method Oxygen Flow Rate 02/01/23 10:30 02/01/23 11:00 02/01/23 11:00 Temperature Pulse Rate 99 H Respiratory Rate 24 Blood Pressure 115/56 L 133/74 Pulse Oximetry 93 93 Oxygen Delivery Method Nasal Cannula Nasal Cannula Nasal Cannula Oxygen Flow Rate 3 02/01/23 11:30 02/01/23 11:30 02/01/23 12:00 Temperature Pulse Rate 101 H Respiratory Rate 31 H Blood Pressure 133/69 136/62 Pulse Oximetry 93 Oxygen Delivery Method Nasal Cannula Oxygen Flow Rate 02/01/23 12:00 02/01/23 12:30 02/01/23 12:30 Temperature Pulse Rate 93 H 99 H Respiratory Rate 42 H 34 H Blood Pressure 126/58 L Pulse Oximetry 92 93 Oxygen Delivery Method Oxygen Flow Rate 02/01/23 13:10 02/01/23 13:36 Temperature 98.0 F Pulse Rate 97 H Respiratory Rate 18 Blood Pressure 111/58 L Pulse Oximetry 92 Oxygen Delivery Method Nasal Cannula Oxygen Flow Rate 3
--- NOTE | 2023-02-01 17:18 | PM.HP.1 ---
History of Present Illness History of Present Illness Date Patient Seen: 02/01/23 Time Patient Seen: 17:15 Chief complaint: can't breathe Narrative: This is a 77 yo male with hx of COPD on 2L oxygen at home, paroxysmal afib on warfarin, CAD, s/p CABG and PCI, BPH, HTN, hx of CVA, hypertrophic cardiomyopathy who presented to the ED with progressively worsening shortness of breath. He reports he was hospitalized last week for urinary retention and was told he would have his lung drained. However he was discharged without this occurring. He is frustrated that this did not happen. In addition to shortness of breath he was having chest pain earlier. Pain has been present since last week but worsened today. He has a chronic cough that is non productive. He is constipated but still having bowel movements. Urinary catheter is in place to help with urinary retention that initially brought him in last week. [facility] Medical History Left-sided epistaxis Sinusitis Chronic headache Hypertrophic cardiomyopathy BPH (benign prostatic hyperplasia) (Unknown) History of CVA (cerebrovascular accident) (Unknown) COPD (chronic obstructive pulmonary disease) (Unknown) Psoriasis (Unknown) Stroke (Unknown) Essential hypertension (12/14/16) Chronic atrial fibrillation (12/14/16) Surgical History Hx of angioplasty (1979) Hx of CABG (Unknown) Social History household members: none Smoking Status: Former smoker alcohol intake: current Meds Home Medications and Allergies Home Medications Medication Instructions Recorded Confirmed Type albuterol sulfate 90 mcg/actuation 2 puff inhalation Q6H PRN 12/22/21 02/01/23 Rx aerosol inhaler shortness of breath or wheezing #8.5 grams metoprolol succinate 50 mg 50 mg PO BEDTIME #90 tabs 12/22/21 02/01/23 Rx tablet,extended release 24 hr clobetasol 0.05 % topical cream 1 applic topical DAILY PRN 02/09/22 02/01/23 Rx Psoriasis #30 grams fluticasone propionate 50 1 spray intranasal BID #16 grams 02/18/22 02/01/23 Rx mcg/actuation nasal spray,suspension warfarin 2.5 mg tablet See Rx Instructions .Route 09/24/22 02/01/23 Rx .COMPLEX #228 tabs furosemide 40 mg tablet (Lasix) 40 mg PO DAILY #7 tabs 10/14/22 02/01/23 Rx ipratropium bromide 17 2 puff inhalation QID #12.9 grams 10/14/22 02/01/23 Rx mcg/actuation HFA aerosol inhaler (Atrovent HFA) DISABLED PARKING PERMIT #1 ea 11/26/22 02/01/23 Rx terazosin 10 mg capsule 10 mg PO QDAY #90 caps 12/10/22 02/01/23 Rx oxycodone 5 mg capsule 5 mg PO Q6H PRN pain #120 caps 01/15/23 02/01/23 Rx sumatriptan succinate 50 mg tablet 50 mg PO ONCE headache #20 tabs 01/19/23 02/01/23 Rx polyethylene glycol 3350 17 gram 17 g PO DAILY #30 ea 01/26/23 02/01/23 Rx oral powder packet (Miralax) tamsulosin 0.4 mg capsule (Flomax) 0.4 mg PO DAILY #30 caps 01/26/23 02/01/23 Rx ondansetron HCl 4 mg tablet 4 mg PO Q8H PRN nausea and 01/27/23 02/01/23 Rx vomiting #30 tabs Allergies Allergy/AdvReac Type Severity Reaction Status Date / Time No Known Drug Allergies Allergy Verified 02/01/23 09:07 Review of Systems Review of Systems Narrative: as per HPI Exam Vital Signs (past 8 hours): - 02/01/23 09:30 02/01/23 09:30 02/01/23 10:00 Temperature Pulse Rate 95 H Respiratory Rate 28 H Blood Pressure 120/93 H 121/58 L Pulse Oximetry 93 Oxygen Delivery Method Nasal Cannula Oxygen Flow Rate 4 02/01/23 10:00 02/01/23 10:30 02/01/23 10:30 Temperature Pulse Rate 97 H 94 H Respiratory Rate 26 H 26 H Blood Pressure 115/56 L Pulse Oximetry 92 93 93 Oxygen Delivery Method Nasal Cannula Oxygen Flow Rate 3 02/01/23 11:00 02/01/23 11:00 02/01/23 11:30 Temperature Pulse Rate 99 H Respiratory Rate 24 Blood Pressure 133/74 133/69 Pulse Oximetry 93 Oxygen Delivery Method Nasal Cannula Nasal Cannula Oxygen Flow Rate 02/01/23 11:30 02/01/23 12:00 02/01/23 12:00 Temperature Pulse Rate 101 H 93 H Respiratory Rate 31 H 42 H Blood Pressure 136/62 Pulse Oximetry 93 92 Oxygen Delivery Method Nasal Cannula Oxygen Flow Rate 02/01/23 12:30 02/01/23 12:30 02/01/23 13:10 Temperature 98.0 F Pulse Rate 99 H 97 H Respiratory Rate 34 H 18 Blood Pressure 126/58 L 111/58 L Pulse Oximetry 93 92 Oxygen Delivery Method Oxygen Flow Rate 3 02/01/23 13:36 Temperature Pulse Rate Respiratory Rate Blood Pressure Pulse Oximetry Oxygen Delivery Method Nasal Cannula Oxygen Flow Rate Oxygen Delivery Method Nasal Cannula Oxygen Flow Rate 3 Narrative Exam Narrative: Const General: sleeping comfortably. Mild distress upon waking. HENMT Head: normal to inspection Eyes General: appearance normal, both eyes and all related structures Neck Neck: normal visual inspection Resp Effort & Inspection: weak respiratory effort. Difficulty speaking in full sentences. Auscultation: Absent air flow on right. Normal breath sounds on left. Cardio Rate: regular rate Rhythm: regular rhythm Heart Sounds: S1 normal and S2 normal Neuro General: patient alert and patient oriented x3 Psych Appearance: grossly normal Mental Status: mental status grossly normal Speech and Movement: speech and movement normal Mood: congruent mood Affect: normal affect Attitude: cooperative Thought Process: normal Thought Content: normal Judgment: judgment good Objective Labs 02/01/23 09:35 02/01/23 09:07 Labs: Laboratory Results - last 24 hr 02/01/23 02/01/23 02/01/23 09:07 09:07 09:07 WBC 7.8 RBC 3.95 L Hgb 11.3 L Hct 34.3 L MCV 86.9 MCH 28.6 MCHC 32.9 RDW 15.6 H Plt Count 331 Neut % (Auto) 80.8 H Lymph % (Auto) 7.4 L [place] % (Auto) 10.4 Eos % (Auto) 1.2 L Baso % (Auto) 0.2 Neut # (Auto) 6300 Lymph # (Auto) 600 L [place] # (Auto) 800 Eos # (Auto) 100 Baso # (Auto) 0 PT 32.4 H D INR 2.8 H APTT 39 H Sodium Cancelled 134 L Potassium Cancelled 4.1 Chloride Cancelled Carbon Dioxide BUN Creatinine Estimated GFR BUN/Creatinine Ratio Glucose Lactate Calcium Total Bilirubin AST ALT Alkaline Phosphatase Total Creatine Kinase Troponin I NT-Pro-B Natriuret Pep Total Protein Albumin Globulin Albumin/Globulin Ratio Lipase 02/01/23 02/01/23 02/01/23 09:07 09:07 09:07 WBC RBC Hgb Hct MCV MCH MCHC RDW Plt Count Neut % (Auto) Lymph % (Auto) [place] % (Auto) Eos % (Auto) Baso % (Auto) Neut # (Auto) Lymph # (Auto) [place] # (Auto) Eos # (Auto) Baso # (Auto) PT INR APTT Sodium Potassium Chloride 93 L Carbon Dioxide Cancelled 34 H BUN Cancelled 8 L Creatinine Cancelled Estimated GFR BUN/Creatinine Ratio Glucose Lactate Calcium Total Bilirubin AST ALT Alkaline Phosphatase Total Creatine Kinase Troponin I NT-Pro-B Natriuret Pep Total Protein Albumin Globulin Albumin/Globulin Ratio Lipase 02/01/23 02/01/23 02/01/23 09:07 09:07 09:07 WBC RBC Hgb Hct MCV MCH MCHC RDW Plt Count Neut % (Auto) Lymph % (Auto) [place] % (Auto) Eos % (Auto) Baso % (Auto) Neut # (Auto) Lymph # (Auto) [place] # (Auto) Eos # (Auto) Baso # (Auto) PT INR APTT Sodium Potassium Chloride Carbon Dioxide BUN Creatinine 0.62 L Estimated GFR Cancelled > 60 BUN/Creatinine Ratio Cancelled 12.9 Glucose Cancelled Lactate Calcium Total Bilirubin AST ALT Alkaline Phosphatase Total Creatine Kinase Troponin I NT-Pro-B Natriuret Pep Total Protein Albumin Globulin Albumin/Globulin Ratio Lipase 02/01/23 02/01/23 02/01/23 09:07 09:07 09:07 WBC RBC Hgb Hct MCV MCH MCHC RDW Plt Count Neut % (Auto) Lymph % (Auto) [place] % (Auto) Eos % (Auto) Baso % (Auto) Neut # (Auto) Lymph # (Auto) [place] # (Auto) Eos # (Auto) Baso # (Auto) PT INR APTT Sodium Potassium Chloride Carbon Dioxide BUN Creatinine Estimated GFR BUN/Creatinine Ratio Glucose 121 H Lactate 1.6 Calcium Cancelled 9.5 Total Bilirubin Cancelled 1.0 AST Cancelled ALT Alkaline Phosphatase Total Creatine Kinase Troponin I NT-Pro-B Natriuret Pep Total Protein Albumin Globulin Albumin/Globulin Ratio Lipase 02/01/23 02/01/23 02/01/23 09:07 09:07 09:07 WBC RBC Hgb Hct MCV MCH MCHC RDW Plt Count Neut % (Auto) Lymph % (Auto) [place] % (Auto) Eos % (Auto) Baso % (Auto) Neut # (Auto) Lymph # (Auto) [place] # (Auto) Eos # (Auto) Baso # (Auto) PT INR APTT Sodium Potassium Chloride Carbon Dioxide BUN Creatinine Estimated GFR BUN/Creatinine Ratio Glucose Lactate Calcium Total Bilirubin AST 22 ALT Cancelled 15 Alkaline Phosphatase Cancelled 82 Total Creatine Kinase < 20 L Troponin I Cancelled NT-Pro-B Natriuret Pep Total Protein Albumin Globulin Albumin/Globulin Ratio Lipase 02/01/23 02/01/23 02/01/23 09:07 09:07 09:07 WBC RBC Hgb Hct MCV MCH MCHC RDW Plt Count Neut % (Auto) Lymph % (Auto) [place] % (Auto) Eos % (Auto) Baso % (Auto) Neut # (Auto) Lymph # (Auto) [place] # (Auto) Eos # (Auto) Baso # (Auto) PT INR APTT Sodium Potassium Chloride Carbon Dioxide BUN Creatinine Estimated GFR BUN/Creatinine Ratio Glucose Lactate Calcium Total Bilirubin AST ALT Alkaline Phosphatase Total Creatine Kinase Troponin I 0.033 NT-Pro-B Natriuret Pep 4670 H Total Protein Cancelled 6.5 Albumin Cancelled 3.6 Globulin Cancelled Albumin/Globulin Ratio Lipase 02/01/23 02/01/23 02/01/23 09:07 09:07 09:35 WBC 7.4 RBC 3.89 L Hgb 11.0 L Hct 33.9 L MCV 87.1 MCH 28.3 MCHC 32.5 RDW 15.9 H Plt Count 336 Neut % (Auto) 80.4 H Lymph % (Auto) 7.3 L [place] % (Auto) 10.2 Eos % (Auto) 1.2 L Baso % (Auto) 0.9 Neut # (Auto) 6000 Lymph # (Auto) 500 L [place] # (Auto) 800 Eos # (Auto) 100 Baso # (Auto) 100 PT INR APTT Sodium Potassium Chloride Carbon Dioxide BUN Creatinine Estimated GFR BUN/Creatinine Ratio Glucose Lactate Calcium Total Bilirubin AST ALT Alkaline Phosphatase Total Creatine Kinase Troponin I NT-Pro-B Natriuret Pep Total Protein Albumin Globulin 2.9 Albumin/Globulin Ratio Cancelled 1.2 Lipase 57 D Assessment & Plan Assessment and plan (1) Large pleural effusion: Status: Acute (2) CHF (congestive heart failure): Qualifiers: Heart failure type: unspecified Heart failure chronicity: unspecified Qualified Code(s): I50.9 - Heart failure, unspecified Status: Acute (3) Paroxysmal ventricular fibrillation: Status: Acute (4) Acute urinary retention: Status: Acute (5) Chronic hypoxemic respiratory failure: Status: Acute (6) Anticoagulation monitoring, INR range 2-3: Status: Acute Plan This is a 77 yo gentleman being admitted for acute on chronic hypoxemic respiratory failure in setting of CHF and large pleural effusion. 1. In regards to his worsening chronic respiratory failure and congestive heart failure, he received IV lasix in the ED. He normally wears 2L oxygen at home, currently on 3L. CXR with complete opacification on right with some worsening on left (patchy dense opacities). No elevated WBC, afebrile. BNP elevated to 4670. Will continue IV lasix daily. 2. In regards to the large pleural effusion, pulm consulted for drainage and management. INR 2.8, received vitamin K in ED. Plan for thoracentesis tomorrow. Appreciate pulm input. 3. Chest pain improved following morphine in ED. troponin 0.03. Did not order repeat, will repeat EKG and trop if chest pain returns. 4. DNR status. Quality VTE Deep Vein Thrombosis/Pulmonary Embolism Present on Admission: No
[2023-02-01] MEDS: METOPROLOL ER 50 MG TABLET PO (20:39)
[2023-02-01] MEDS: HYDROCODONE/ACET 5/325 TABLET 1 TAB PO (20:40)
[2023-02-01] MEDS: ONDANSETRON 4 MG ODT PO (20:41)
[2023-02-01] MEDS: TERAZOSIN 5 MG CAPSULE 10 MG PO (21:37)
[2023-02-01] MEDS: IPRATROPIUM 0.5 MG/2.5 ML NEB INH (22:00)
[2023-02-02] VITALS (15 sets, daily range): BP systolic 108–120; BP diastolic 45–68; PULSE 84–99; RESP 16–22; TEMP 36.2–36.8; O2SAT 92–96
[2023-02-02 05:22] LABS: Add Manual Diff / Slide Review NO; Basophils Absolute Auto 100 /uL (0-100); Eosinophils Absolute Auto 200 /uL (0-450); Eosinophils Percent Auto 2.2 % (2-4); Hematocrit 31.6 % (41-53); Hemoglobin 10.1 g/dL (13.5-17.5); Lymphocytes Absolute Auto 700 /uL (1100-4500); Lymphocytes Percent Auto 9.6 % (25-40); Mean Corpuscular HGB Conc 32.1 % (30-36); Mean Corpuscular Volume 87.4 fL (80-100); Monocytes Absolute Auto 800 /uL (0-900); Monocytes Percent Auto 10.9 % (3-14); Neutrophils Absolute Auto 5600 /uL (1500-7000); Neutrophils Percent Auto 76.3 % (50-75); Platelet Count 336 X10^3/uL (150-400); Red Blood Cell Count 3.62 X10^6/uL (4.5-5.9); Red Cell Distribution Width 15.8 % (11.6-14.8); White Blood Cell Count 7.4 X10^3/uL (4.5-11.0)
[2023-02-02 05:26] LABS: INR 3.5 (0.9-1.3); Prothrombin Time 40.4 SECONDS (10.1-12.7)
[2023-02-02 05:32] LABS: Alanine Aminotransferase 13 IU/L (<50); Albumin 3.2 g/dL (3.5-5.0); Albumin Globulin Ratio 1.2 (1.0-2.8); Alkaline Phosphatase 66 U/L (38-126); Aspartate Aminotransferase 16 IU/L (17-59); BUN Creatinine Ratio 14.1 (6-22); Bilirubin Total 1.1 mg/dL (0.2-1.3); Blood Urea Nitrogen 10 mg/dL (9-20); Carbon Dioxide 37 mmol/L (22-32); Chloride 89 mmol/L (98-107); Estimated Glomerular Filt Rate > 60 mL/min (>60); Globulin 2.6 g/dL (1.7-4.1); Glucose 112 mg/dL (80-110); HEMOLYSIS < 15 (0-50); Potassium 4.2 mmol/L (3.4-5.1); Sodium 130 mmol/L (137-145); Total Protein 5.8 g/dL (6.3-8.2)
[2023-02-02] MEDS: FUROSEMIDE 40 MG/4 ML VIAL IV ×2 (06:31→09:10)
[2023-02-02] MEDS: HYDROCODONE/ACET 5/325 TABLET 1 TAB PO ×2 (07:47→18:41)
--- NOTE | 2023-02-02 08:03 | PM.PN.1 ---
Subjective Subjective Date Patient Seen: 02/02/23 Time Patient Seen: 07:44 Interval history: Mr. Burris is resting in bed this morning with his typical level of supplemental O2 at 2 L nasal cannula. He reports feeling significant amount of chest discomfort due to a stretching pressure from the fluid in his chest. He denies any chest discomfort in terms of feeling like something is pressing down on him. His shortness of breath is slightly improved compared to when he 1first arrived. No other new symptoms or complaints. The plan is for him to have a thoracentesis at some point today pending normalization of his INR. He was told that he might even have a drain placed to help keep fluid from reaccumulating. Exam Vital Signs (past 8 hours): - 02/02/23 00:58 02/02/23 03:00 02/02/23 04:00 Temperature 98.3 F 98.0 F Pulse Rate 89 85 Respiratory Rate 22 16 Blood Pressure 112/53 L 110/66 Pulse Oximetry 92 92 96 Oxygen Delivery Method Nasal Cannula Oxygen Flow Rate 2 3 02/02/23 04:05 Temperature Pulse Rate Respiratory Rate Blood Pressure Pulse Oximetry 92 Oxygen Delivery Method Oxygen Flow Rate 2 Oxygen Delivery Method Nasal Cannula Oxygen Flow Rate 2 Narrative Exam Narrative: General: Elderly, frail, ill-appearing male CV: Regular rate, irregularly irregular rhythm, no murmur auscultated Resp: Increased work of breathing with use of neck accessory muscles and pursing of lips, speaks in partial sentences which is similar to his baseline, [id number] crackles/rales at left lung base, no breath sounds on right side Abdomen: Soft, nontender, nondistended, bowel sounds present, no masses palpated Extremities: No appreciable edema Neuro: A&O x3, normal cognition, moves all extremities Objective Labs 02/02/23 04:41 02/02/23 04:41 Labs: Laboratory Results - last 24 hr 02/01/23 02/01/23 02/01/23 09:07 09:07 09:07 WBC 7.8 RBC 3.95 L Hgb 11.3 L Hct 34.3 L MCV 86.9 MCH 28.6 MCHC 32.9 RDW 15.6 H Plt Count 331 Neut % (Auto) 80.8 H Lymph % (Auto) 7.4 L Taney % (Auto) 10.4 Eos % (Auto) 1.2 L Baso % (Auto) 0.2 Neut # (Auto) 6300 Lymph # (Auto) 600 L Taney # (Auto) 800 Eos # (Auto) 100 Baso # (Auto) 0 PT 32.4 H D INR 2.8 H APTT 39 H Sodium Cancelled 134 L Potassium Cancelled 4.1 Chloride Cancelled Carbon Dioxide BUN Creatinine Estimated GFR BUN/Creatinine Ratio Glucose Lactate Calcium Total Bilirubin AST ALT Alkaline Phosphatase Total Creatine Kinase Troponin I NT-Pro-B Natriuret Pep Total Protein Albumin Globulin Albumin/Globulin Ratio Lipase 02/01/23 02/01/23 02/01/23 09:07 09:07 09:07 WBC RBC Hgb Hct MCV MCH MCHC RDW Plt Count Neut % (Auto) Lymph % (Auto) Taney % (Auto) Eos % (Auto) Baso % (Auto) Neut # (Auto) Lymph # (Auto) Taney # (Auto) Eos # (Auto) Baso # (Auto) PT INR APTT Sodium Potassium Chloride 93 L Carbon Dioxide Cancelled 34 H BUN Cancelled 8 L Creatinine Cancelled Estimated GFR BUN/Creatinine Ratio Glucose Lactate Calcium Total Bilirubin AST ALT Alkaline Phosphatase Total Creatine Kinase Troponin I NT-Pro-B Natriuret Pep Total Protein Albumin Globulin Albumin/Globulin Ratio Lipase 02/01/23 02/01/23 02/01/23 09:07 09:07 09:07 WBC RBC Hgb Hct MCV MCH MCHC RDW Plt Count Neut % (Auto) Lymph % (Auto) Taney % (Auto) Eos % (Auto) Baso % (Auto) Neut # (Auto) Lymph # (Auto) Taney # (Auto) Eos # (Auto) Baso # (Auto) PT INR APTT Sodium Potassium Chloride Carbon Dioxide BUN Creatinine 0.62 L Estimated GFR Cancelled > 60 BUN/Creatinine Ratio Cancelled 12.9 Glucose Cancelled Lactate Calcium Total Bilirubin AST ALT Alkaline Phosphatase Total Creatine Kinase Troponin I NT-Pro-B Natriuret Pep Total Protein Albumin Globulin Albumin/Globulin Ratio Lipase 02/01/23 02/01/23 02/01/23 09:07 09:07 09:07 WBC RBC Hgb Hct MCV MCH MCHC RDW Plt Count Neut % (Auto) Lymph % (Auto) Taney % (Auto) Eos % (Auto) Baso % (Auto) Neut # (Auto) Lymph # (Auto) Taney # (Auto) Eos # (Auto) Baso # (Auto) PT INR APTT Sodium Potassium Chloride Carbon Dioxide BUN Creatinine Estimated GFR BUN/Creatinine Ratio Glucose 121 H Lactate 1.6 Calcium Cancelled 9.5 Total Bilirubin Cancelled 1.0 AST Cancelled ALT Alkaline Phosphatase Total Creatine Kinase Troponin I NT-Pro-B Natriuret Pep Total Protein Albumin Globulin Albumin/Globulin Ratio Lipase 02/01/23 02/01/23 02/01/23 09:07 09:07 09:07 WBC RBC Hgb Hct MCV MCH MCHC RDW Plt Count Neut % (Auto) Lymph % (Auto) Taney % (Auto) Eos % (Auto) Baso % (Auto) Neut # (Auto) Lymph # (Auto) Taney # (Auto) Eos # (Auto) Baso # (Auto) PT INR APTT Sodium Potassium Chloride Carbon Dioxide BUN Creatinine Estimated GFR BUN/Creatinine Ratio Glucose Lactate Calcium Total Bilirubin AST 22 ALT Cancelled 15 Alkaline Phosphatase Cancelled 82 Total Creatine Kinase < 20 L Troponin I Cancelled NT-Pro-B Natriuret Pep Total Protein Albumin Globulin Albumin/Globulin Ratio Lipase 02/01/23 02/01/23 02/01/23 09:07 09:07 09:07 WBC RBC Hgb Hct MCV MCH MCHC RDW Plt Count Neut % (Auto) Lymph % (Auto) Taney % (Auto) Eos % (Auto) Baso % (Auto) Neut # (Auto) Lymph # (Auto) Taney # (Auto) Eos # (Auto) Baso # (Auto) PT INR APTT Sodium Potassium Chloride Carbon Dioxide BUN Creatinine Estimated GFR BUN/Creatinine Ratio Glucose Lactate Calcium Total Bilirubin AST ALT Alkaline Phosphatase Total Creatine Kinase Troponin I 0.033 NT-Pro-B Natriuret Pep 4670 H Total Protein Cancelled 6.5 Albumin Cancelled 3.6 Globulin Cancelled Albumin/Globulin Ratio Lipase 02/01/23 02/01/23 02/01/23 09:07 09:07 09:35 WBC 7.4 RBC 3.89 L Hgb 11.0 L Hct 33.9 L MCV 87.1 MCH 28.3 MCHC 32.5 RDW 15.9 H Plt Count 336 Neut % (Auto) 80.4 H Lymph % (Auto) 7.3 L Taney % (Auto) 10.2 Eos % (Auto) 1.2 L Baso % (Auto) 0.9 Neut # (Auto) 6000 Lymph # (Auto) 500 L Taney # (Auto) 800 Eos # (Auto) 100 Baso # (Auto) 100 PT INR APTT Sodium Potassium Chloride Carbon Dioxide BUN Creatinine Estimated GFR BUN/Creatinine Ratio Glucose Lactate Calcium Total Bilirubin AST ALT Alkaline Phosphatase Total Creatine Kinase Troponin I NT-Pro-B Natriuret Pep Total Protein Albumin Globulin 2.9 Albumin/Globulin Ratio Cancelled 1.2 Lipase 57 D 02/02/23 04:41 WBC 7.4 RBC 3.62 L Hgb 10.1 L Hct 31.6 L MCV 87.4 MCH 28.0 MCHC 32.1 RDW 15.8 H Plt Count 336 Neut % (Auto) 76.3 H Lymph % (Auto) 9.6 L Taney % (Auto) 10.9 Eos % (Auto) 2.2 Baso % (Auto) 1.0 Neut # (Auto) 5600 Lymph # (Auto) 700 L Taney # (Auto) 800 Eos # (Auto) 200 Baso # (Auto) 100 PT 40.4 H D INR 3.5 H APTT Sodium 130 L Potassium 4.2 Chloride 89 L Carbon Dioxide 37 H BUN 10 Creatinine 0.71 Estimated GFR > 60 BUN/Creatinine Ratio 14.1 Glucose 112 H Lactate Calcium 9.0 Total Bilirubin 1.1 AST 16 L ALT 13 Alkaline Phosphatase 66 Total Creatine Kinase Troponin I NT-Pro-B Natriuret Pep Total Protein 5.8 L Albumin 3.2 L Globulin 2.6 Albumin/Globulin Ratio 1.2 Lipase PFS Medical History Left-sided epistaxis Sinusitis Chronic headache Hypertrophic cardiomyopathy BPH (benign prostatic hyperplasia) (Unknown) History of CVA (cerebrovascular accident) (Unknown) COPD (chronic obstructive pulmonary disease) (Unknown) Psoriasis (Unknown) Stroke (Unknown) Essential hypertension (12/14/16) Chronic atrial fibrillation (12/14/16) Surgical History Hx of angioplasty (1979) Hx of CABG (Unknown) Social History household members: none Smoking Status: Former smoker alcohol intake: current Assessment & Plan Assessment & Plan narrative: #Shortness of breath: Combination of chronic respiratory failure, CHF, and persistent right side pleural effusion of unknown etiology. Initially required 4 L O2 supplement on arrival, now back to his typical 2 L baseline. Agree that left side patchy dense opacities on CXR likely due to pulmonary edema/volume overload rather than pneumonia given lack of white count or signs of systemic infection. Pulmonology consulted from ED, planning thoracentesis today pending normalization of INR. -IV Lasix 40mg daily -Thoracentesis w/possible drain placement #Chest discomfort: Likely due to fluid accumulation swelling and stretching his chest based on description. Troponin 0.03 on arrival in ED within normal range, will repeat w/EKG if new/worsening symptoms arise. -Pain scale w/bowel regimen Code status: DNR Time Spent With Patient Time with patient: less than 30 minutes Quality VTE Deep Vein Thrombosis/Pulmonary Embolism Present on Admission: No
[2023-02-02] MEDS: IPRATROPIUM 0.5 MG/2.5 ML NEB INH ×4 (08:30→23:00)
[2023-02-02] MEDS: MORPHINE 2 MG/ML INJ IV (14:05)
[2023-02-02] MEDS: ONDANSETRON 4 MG/2 ML INJ IV (14:27)
[2023-02-02 14:33] LABS: Creatine Kinase < 20 U/L (55-170)
--- NOTE | 2023-02-02 15:02 | CM.DANOTE ---
Reviewed EMR and team rounds for pt's medical status and initial anticipated home d/c needs. Met with pt at bedside to introduce self and role, he had his DPOA/Artie and another friend presently visiting during this visit. Payor: Medicare PCP: Maurisio Lofton Pt is a 77 year-old M re-readmitted from last week for worsening shortness of breath and chest pain across his chest. His medical hx is significant for COPD, AFib, CHF, CAD, Hypertension among his many comorbidities. He had been admitted last week for a large pleural effusion, was planning to have a thoracentesis at that time, however his INR was too high. He's on 2LO2 at home at baseline. He's a , lives alone, has close friends that can assist and support him as needed. Admission dx continues to be a large pleural effusion with the plan of doing a thoracentesis once his INR comes down. Artie, his DPOA, will transport back home once medically stable. OP recommendations pending PT/OT evals. He already has an outpatient f/u visit scheduled with his Lithoduplicator Operator. DCP will continue to follow and assist as his care plan evolves. Discharge Planning/Care Management Advanced directive, confirm from FAMILY Start: 02/01/23 13:26 Freq: Q24H Status: Active Protocol: Document 02/01/23 13:31 JAQUELINE (Rec: 02/01/23 13:31 JAQUELINE [id number]) Advance Directive, confirm on record Time 13:31 Person contacted artie Copy received No CM Discharge Assessment Start: 02/02/23 14:48 Freq: Status: Active Protocol: Document 02/02/23 14:59 DPL (Rec: 02/02/23 15:02 DPL [id number]) Discharge Planning Assessment Assigned Nutrition Professor RUIZ Cunningham Advance Directives? Yes Advance Directives on File No History Provided By Patient,Medical Record Has Patient been admitted in last 30 Yes days? Comment Same issue. Prior Living Arrangements House Household Members none Type of transporation used prior to Drives own vehicle admit Independent with ADL's Yes Is patient alert and oriented? Yes Caregiver for Another No Community Services used prior to Oxygen Therapy admission: DME Already Rented / Owned Oxygen Comment Pending PT/OT recommendations. Barriers to Discharge No Discharge Plan Home Community Services Oxygen Therapy Transportation Arrangement DPOA Artie will transport home Referrals Initiated None needed Additional Comment Pt has scheduled appointment with his Lithoduplicator Operator next week Whiteboard Updated in Patient Room with Yes name and ext. # of Nutrition Professor Review Status In Process Please Provide Date Initial DC 02/01/23 Assessment Was Performed
[2023-02-02] MEDS: LIDOCAINE 1% W/EPI 10 ML INJ (17:30)
--- NOTE | 2023-02-02 18:00 | P.CONS_ITS ---
History of Present Illness Consult details Date Patient Seen: 02/02/23 Chief complaint: can't breathe Narrative: Mr. Pawel Burris is a 77-year-old male with a history of COPD, former smoker, atrial fibrillation anticoagulation with warfarin, coronary arteries as post CABG and PCI, CVA, hypertension, psoriasis had progressive dyspnea now for 12 months with increasing right-sided headaches, progressive right pleural effusion and right hilar mass status post right thoracentesis on 01/07/2023 that was transudative and negative for malignancy with recent events including elevated NT proBNP greater than 6000, PFTs in July showing severe obstruction with decline in FEV1 compared to prior, PET-CT unable to be done due to inability to lay flat for prolonged period of time due to coughing, CT head with contrast showing no intracranial pathology unlikely migraine given response to Triptan, and persistent acute hypoxemic respiratory failure for which he would maintains on 2-3 L nasal cannula for whom we are consulted for management. Unfortunately we did prescribe him oxycodone for his headaches ultimately found not to be intracranial metastases but he was complicated by constipation resulting in urinary retention resolved with laxatives. He presented yesterday on 02/01/2023 due to worsening shortness of breath and chest tightness which was new. His chest x-ray showed a persistent right pleural effusion however the difference was that the mediastinum previously shifted ipsilaterally was now midline suggesting positive pressure pleural effusion. His INR was elevated so he was given vitamin K and admitted to the hospital. Given his NT proBNP was 46 70 he was given diuretics with some improvement in subjective shortness of breath continues to have chest tightness. His friend who is his POA is with him did not hear about the lung mass or prior workup. He is hearing this for the 1st time. Patient denies any fevers, chills, leg edema. Meds Home Medications and Allergies Home Medications Medication Instructions Recorded Confirmed Type albuterol sulfate 90 mcg/actuation 2 puff inhalation Q6H PRN 12/22/21 02/01/23 Rx aerosol inhaler shortness of breath or wheezing #8.5 grams metoprolol succinate 50 mg 50 mg PO BEDTIME #90 tabs 12/22/21 02/01/23 Rx tablet,extended release 24 hr clobetasol 0.05 % topical cream 1 applic topical DAILY PRN 02/09/22 02/01/23 Rx Psoriasis #30 grams fluticasone propionate 50 1 spray intranasal BID #16 grams 02/18/22 02/01/23 Rx mcg/actuation nasal spray,suspension warfarin 2.5 mg tablet See Rx Instructions .Route 09/24/22 02/01/23 Rx .COMPLEX #228 tabs furosemide 40 mg tablet (Lasix) 40 mg PO DAILY #7 tabs 10/14/22 02/01/23 Rx ipratropium bromide 17 2 puff inhalation QID #12.9 grams 10/14/22 02/01/23 Rx mcg/actuation HFA aerosol inhaler (Atrovent HFA) DISABLED PARKING PERMIT #1 ea 11/26/22 02/01/23 Rx terazosin 10 mg capsule 10 mg PO QDAY #90 caps 12/10/22 02/01/23 Rx oxycodone 5 mg capsule 5 mg PO Q6H PRN pain #120 caps 01/15/23 02/01/23 Rx sumatriptan succinate 50 mg tablet 50 mg PO ONCE headache #20 tabs 01/19/23 02/01/23 Rx polyethylene glycol 3350 17 gram 17 g PO DAILY #30 ea 01/26/23 02/01/23 Rx oral powder packet (Miralax) tamsulosin 0.4 mg capsule (Flomax) 0.4 mg PO DAILY #30 caps 01/26/23 02/01/23 Rx ondansetron HCl 4 mg tablet 4 mg PO Q8H PRN nausea and 01/27/23 02/01/23 Rx vomiting #30 tabs Allergies Allergy/AdvReac Type Severity Reaction Status Date / Time No Known Drug Allergies Allergy Verified 02/01/23 09:07 Exam Vital Signs (past 8 hours): - 02/02/23 11:00 02/02/23 15:18 02/02/23 16:00 Temperature 97.1 F L Pulse Rate 86 99 H Respiratory Rate 20 16 Blood Pressure 120/57 L Pulse Oximetry 94 94 96 Oxygen Delivery Method Nasal Cannula Nasal Cannula Oxygen Flow Rate 2 2 2 Fraction of Inspired Oxygen 28 Fraction of Inspired Oxygen 28 SaO2/FiO2 Ratio 335 Oxygen Delivery Method Nasal Cannula Oxygen Flow Rate 2 Narrative Exam Narrative: Ill-appearing elderly male sitting in hospital bed, pleasant cooperative in mild distress due to chest discomfort HENMT Head: normal to inspection Other: Wearing supplemental oxygen Chest Chest: normal inspection of the chest Resp Other: Diminished breath sounds in the right lung field throughout, left lung clear; mild conversational dyspnea Cardio Rate: regular rate Skin General: no rashes or lesions noted Neuro General: patient alert, patient awake and patient oriented x3 Extrem Other: No edema Psych Appearance: grossly normal Objective Imaging Chest x-ray: My impression: CXR 01/2022 showed persistent right hilar prominence. Chest x-ray 10/14/22 showed a subpulmonic right pleural effusion. CXR 01/06/23 showed complete right hemithorax opacification and mild rightward (ipsilateral) mediastinal shift. Chest x-ray on 02/01/2023 showed enlarging right pleural effusion now with midline mediastinum CT scan - chest: My impression: chest CT 01/06/23 with large right pleural effusion and right volume loss and confluent heterogenous mass as well as mediastinal adenopathy CT scan - head: My impression: CT head showed no intracranial abnormality. CT head with contrast on 01/14/2023 showed no intracranial abnormality PFT: My impression: PFTs 08/21/22 revealed severe obstructive ventilatory defect with no signficant response to bronchodilators. In comparison to 2020, there was a significant decline in FEV1 function. He re-presented to ED on 10/15/11. It had been noted he had about 1 month of right-sided headaches. He would some associated chest discomfort. He would noted low saturations and was started on oxygen. Labs 02/02/23 04:41 02/02/23 04:41 Labs: Laboratory Results - last 24 hr 02/02/23 02/02/23 04:41 14:00 WBC 7.4 RBC 3.62 L Hgb 10.1 L Hct 31.6 L MCV 87.4 MCH 28.0 MCHC 32.1 RDW 15.8 H Plt Count 336 Neut % (Auto) 76.3 H Lymph % (Auto) 9.6 L Henderson % (Auto) 10.9 Eos % (Auto) 2.2 Baso % (Auto) 1.0 Neut # (Auto) 5600 Lymph # (Auto) 700 L Henderson # (Auto) 800 Eos # (Auto) 200 Baso # (Auto) 100 PT 40.4 H D INR 3.5 H Sodium 130 L Potassium 4.2 Chloride 89 L Carbon Dioxide 37 H BUN 10 Creatinine 0.71 Estimated GFR > 60 BUN/Creatinine Ratio 14.1 Glucose 112 H Calcium 9.0 Total Bilirubin 1.1 AST 16 L ALT 13 Alkaline Phosphatase 66 Total Creatine Kinase < 20 L Troponin I 0.030 Total Protein 5.8 L Albumin 3.2 L Globulin 2.6 Albumin/Globulin Ratio 1.2 INR of 3.5 today on 02/02/2023 Sodium notable for 130, serum bicarb of 37, and creatinine 0.71, NT proBNP of 46 70 as of 02/01/2023, serum albumin of 3.2 Pleural fluid studies from 01/07/2023 showed RBC count of 1027, white blood cell 572, 92% mononuclear white blood cells, 3% eos, LDH of 82 total protein of 2.2 glucose of 101, culture no growth to date and finally cytology was negative for malignant cells, mesothelial cells with reactive changes [facility] Medical History Left-sided epistaxis Sinusitis Chronic headache Hypertrophic cardiomyopathy BPH (benign prostatic hyperplasia) (Unknown) History of CVA (cerebrovascular accident) (Unknown) COPD (chronic obstructive pulmonary disease) (Unknown) Psoriasis (Unknown) Stroke (Unknown) Essential hypertension (12/14/16) Chronic atrial fibrillation (12/14/16) Surgical History Hx of angioplasty (1979) Hx of CABG (Unknown) Social History household members: none Tobacco & Substance Use Smoking Status: Former smoker alcohol intake: current Assessment & Plan Assessment and plan (1) Large pleural effusion: Status: Acute Plan: Patient has a recurrent right pleural effusion associated with volume loss of the right lung. Pleural fluid studies are transudative suggesting that the effusion is secondary to volume loss of the right lung rather than malignant although cytology is notoriously insensitive. He did not have much benefit clinically on 01/07/2023 thoracentesis 1.55 L but now presenting with chest discomfort and now midline to contralateral shift of the mediastinum suggestive of more positive pressure pleural effusion. This may be contributed by CHF, volume loss of the right lung, possible malignancy given the right hilar mass. Plan to place a pigtail chest tube given his elevated INR and symptoms and resend for cytology. The rationale is that the patient has elevated INR and bleeding occurs then pigtail chest tube is in place and if the patient does undergo rigid bronchoscopy with general anesthesia if there were pneumothorax treatment would be pigtail chest tube. If he chooses not to proceed with transfer to [facility] then removed the pigtail chest tube prior to discharge. (2) NSCLC of right lung: Status: Acute Plan: Patient has a large right lung mass. This presented initially as right hilar prominence dating back to January 2022 growing in prominence with development of a subpulmonic right pleural effusion and then opacification of his right chest which was more volume loss than positive pressure effusion. He is undiagnosed. He has not had his PET-CT which he needs to reschedule. If there is an extrathoracic disease as can be biopsied however he likely will need bronchoscopy which I discussed and patient transfer with Dr. Gorge Mathias has [address] for both diagnostic and therapeutic rigid bronchoscopy given his central airways obstruction who is agreeable to evaluate him with tentative plans for OR on 02/05/2023. Patient is still considering this but favoring not transferring since he does not want to be an inpatient and thinks he can undergo outpatient workup as he has been doing for the last 12 months. I advised him strongly that he consider transfer for bronchoscopy as he is had logistical issues with obtaining PET-CT, traveling to [place] for EBUS bronchoscopy and regardless if he needs rigid bronchoscopy with therapeutic airway intervention would need to go to [place] any way. He will consider this and report back to the on-call physician tomorrow 02/03. If he chooses not to go then we will perform an outpatient PET-CT and if any extrathoracic disease consult Radiology for a CT-guided biopsy. If he does only have intrathoracic disease then we can arrange a EBUS bronchoscopy at [facility] if the patient can arrange enough oxygen for transportation which he thinks he can. He is already been prescribed an [employer] concentrator and has been approved for it and was told to pick it up but he refused to do so. (3) COPD (chronic obstructive pulmonary disease): Qualifiers: COPD type: emphysema Emphysema type: centrilobular Qualified Code(s): J43.2 - Centrilobular emphysema Status: Chronic Plan: Patient does have COPD and is a former smoker. He has severe obstruction on PFTs however I suspect that the worsening obstruction noted on July 2022 PFTs with decline in FEV1 are probably result of central airways obstruction then worsening of COPD. I recommend continued treatment with bronchodilator therapy. (4) Chronic hypoxemic respiratory failure: Status: Acute Plan: Patient rather has acute hypoxemic respiratory failure started on oxygen earlier this year. It is likely due to combination of right lung volume loss, COPD, CHF. Recommend continued supplemental oxygen continuous drive benefit (5) Chronic headache: Qualifiers: Headache type: unspecified Intractability: intractable Qualified Code(s): R51.9 - Headache, unspecified; G89.29 - Other chronic pain Status: Chronic Plan: Patient's headache was initially concerning for metastatic intracranial malignancy however CT head and CT head with contrast showed no pathologic lesions and he responded to Triptan so suspect more migraine headaches. (6) CHF (congestive heart failure): Qualifiers: Heart failure chronicity: unspecified Heart failure type: unspecified Qualified Code(s): I50.9 - Heart failure, unspecified Status: Acute Plan: Patient does have heart failure preserved ejection fraction the setting of atrial fibrillation and elevated NT proBNP always greater than 3000. He may have a component of hypovolemia even though it does not have leg edema that may be contributing to his right pleural effusion as well as shortness of breath for which she is on diuretics as this inpatient given his NT proBNP 4600. Time Spent With Patient Time with patient: 70 minutes or more, with 50% spent counseling/coordinating
--- NOTE | 2023-02-02 18:00 | DI.RAD.S_ITS ---
PROCEDURE: XR CHEST 1V INDICATIONS: new right pigtail chest tube placement; assess position TECHNIQUE: One view of the chest was acquired. COMPARISON: [facility], CT, CT CHEST WO CON, 01/25/2023, 17:29. [facility], CR, XR CHEST 1V, 02/01/2023, 9:06. FINDINGS: Surgical changes and devices: A right-sided pleural drain has been placed. Post CABG changes are seen. Lungs and pleura: There is persistent complete opacification of the right hemithorax. Generalized interstitial infiltrates can be seen within the left lung. Mediastinum: Mediastinal contours appear normal. Heart size is normal. Bones and chest wall: No suspicious bony lesions. Age-appropriate bony degenerative changes are seen. Overlying soft tissues appear unremarkable. IMPRESSION: Interval placement of a right-sided pleural drain. There is persistent opacification of the right hemithorax. Continued interstitial infiltrates involving the left lung. Differential diagnosis includes pulmonary edema and atypical infiltrate. Postoperative and degenerative changes are seen. Dictated by: Luis Munoz M.D. on 02/02/2023 at 18:35 Approved by: Luis Munoz M.D. on 02/02/2023 at 18:37
--- NOTE | 2023-02-02 18:34 | PM.PROC.1 ---
Procedures Date/Time Date of procedure: 02/02/23 Time of procedure: 18:35 Chest Tube Size of tube: 10 Tube sutured to skin: Yes Sterile dressing applied: Yes Anesthesia: 1% Lidocaine w/ Epi Incision made with: #10 blade Post procedure: sutured to skin Griffith of air heard: No Tube Drainage: fluid Amount of initial drainage (ml): 1,050 Post procedure CXR?: Yes Patient tolerated procedure well: Yes Progress: Patient consented for the procedure and written consent was obtained after discussion of risks and benefits. Ultrasound was used to identify the appropriate site of insertion in the right anterior chest. A large pleural effusion was noted with large sail sign. Vascular ultrasound was used to ensure no overlying vasculature. Site was prepped with chlorhexidine. He was draped sterilely. Appropriate PPE was used. Initially 1% lidocaine with epinephrine was injected subcutaneously through the trach until clear yellow fluid was aspirated. A 10 mm incision was made with a scalpel. A trocar 10.2 Bulgarian cook catheter was inserted with real-time ultrasound guidance into the pleural fluid and positioned appropriately at about 20 cm lisa. Yellow fluid drainage was noted. Tidal'ing was appreciated. This is connected to a Pleur-Evac the adapter. Initially 1 L of drainage was appreciated with improvement in chest discomfort. Tube was sutured with 2-0 silk. Sterile dressing was applied. Chest x-ray showed tube in appropriate position with now ipsilateral mediastinal shift. No complications. Patient tolerated the procedure well.
--- NOTE | 2023-02-02 18:37 | P.CONS_ITS ---
History of Present Illness Consult details Chief complaint: can't breathe Narrative: I called [address] and discuss with interventional pulmonologists and thoracic surgeon Dr. Gorge Mathias. 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 He agreed to transfer the patient to [address] for rigid bronchoscopy on 02/05 for diagnosis as well as possible therapeutic intervention for central airways obstruction given the right-sided volume loss and hilar mass. He recommended holding warfarin. I spoke with the hospitalist who graciously agreed to transfer the patient. Patient is still considering this and favoring not transferring. He will give a final answered to the covering doctor tomorrow 02/03. If not then his pigtail chest tube can be removed the can be discharged home with outpatient pulmonary follow up. Patient was advised strongly this is not recommended Meds Home Medications and Allergies Home Medications Medication Instructions Recorded Confirmed Type albuterol sulfate 90 mcg/actuation 2 puff inhalation Q6H PRN 12/22/21 02/01/23 Rx aerosol inhaler shortness of breath or wheezing #8.5 grams metoprolol succinate 50 mg 50 mg PO BEDTIME #90 tabs 12/22/21 02/01/23 Rx tablet,extended release 24 hr clobetasol 0.05 % topical cream 1 applic topical DAILY PRN 02/09/22 02/01/23 Rx Psoriasis #30 grams fluticasone propionate 50 1 spray intranasal BID #16 grams 02/18/22 02/01/23 Rx mcg/actuation nasal spray,suspension warfarin 2.5 mg tablet See Rx Instructions .Route 09/24/22 02/01/23 Rx .COMPLEX #228 tabs furosemide 40 mg tablet (Lasix) 40 mg PO DAILY #7 tabs 10/14/22 02/01/23 Rx ipratropium bromide 17 2 puff inhalation QID #12.9 grams 10/14/22 02/01/23 Rx mcg/actuation HFA aerosol inhaler (Atrovent HFA) DISABLED PARKING PERMIT #1 ea 11/26/22 02/01/23 Rx terazosin 10 mg capsule 10 mg PO QDAY #90 caps 12/10/22 02/01/23 Rx oxycodone 5 mg capsule 5 mg PO Q6H PRN pain #120 caps 01/15/23 02/01/23 Rx sumatriptan succinate 50 mg tablet 50 mg PO ONCE headache #20 tabs 01/19/23 02/01/23 Rx polyethylene glycol 3350 17 gram 17 g PO DAILY #30 ea 01/26/23 02/01/23 Rx oral powder packet (Miralax) tamsulosin 0.4 mg capsule (Flomax) 0.4 mg PO DAILY #30 caps 01/26/23 02/01/23 Rx ondansetron HCl 4 mg tablet 4 mg PO Q8H PRN nausea and 01/27/23 02/01/23 Rx vomiting #30 tabs Allergies Allergy/AdvReac Type Severity Reaction Status Date / Time No Known Drug Allergies Allergy Verified 02/01/23 09:07 Exam Vital Signs (past 8 hours): - 02/02/23 11:00 02/02/23 15:18 02/02/23 16:00 Temperature 97.1 F L Pulse Rate 86 99 H Respiratory Rate 20 16 Blood Pressure 120/57 L Pulse Oximetry 94 94 96 Oxygen Delivery Method Nasal Cannula Nasal Cannula Oxygen Flow Rate 2 2 2 Fraction of Inspired Oxygen 28 Fraction of Inspired Oxygen 28 SaO2/FiO2 Ratio 335 Oxygen Delivery Method Nasal Cannula Oxygen Flow Rate 2 Objective Labs 02/02/23 04:41 02/02/23 04:41 Labs: Laboratory Results - last 24 hr 02/02/23 02/02/23 04:41 14:00 WBC 7.4 RBC 3.62 L Hgb 10.1 L Hct 31.6 L MCV 87.4 MCH 28.0 MCHC 32.1 RDW 15.8 H Plt Count 336 Neut % (Auto) 76.3 H Lymph % (Auto) 9.6 L Bryan % (Auto) 10.9 Eos % (Auto) 2.2 Baso % (Auto) 1.0 Neut # (Auto) 5600 Lymph # (Auto) 700 L Bryan # (Auto) 800 Eos # (Auto) 200 Baso # (Auto) 100 PT 40.4 H D INR 3.5 H Sodium 130 L Potassium 4.2 Chloride 89 L Carbon Dioxide 37 H BUN 10 Creatinine 0.71 Estimated GFR > 60 BUN/Creatinine Ratio 14.1 Glucose 112 H Calcium 9.0 Total Bilirubin 1.1 AST 16 L ALT 13 Alkaline Phosphatase 66 Total Creatine Kinase < 20 L Troponin I 0.030 Total Protein 5.8 L Albumin 3.2 L Globulin 2.6 Albumin/Globulin Ratio 1.2 [facility] Medical History Left-sided epistaxis Sinusitis Chronic headache Hypertrophic cardiomyopathy BPH (benign prostatic hyperplasia) (Unknown) History of CVA (cerebrovascular accident) (Unknown) COPD (chronic obstructive pulmonary disease) (Unknown) Psoriasis (Unknown) Stroke (Unknown) Essential hypertension (12/14/16) Chronic atrial fibrillation (12/14/16) Surgical History Hx of angioplasty (1979) Hx of CABG (Unknown) Social History household members: none Tobacco & Substance Use Smoking Status: Former smoker alcohol intake: current
--- NOTE | 2023-02-02 19:52 | PC.NURSE ---
Event Note Patient w/ complaint of 9/10 chest pain similar to pain that brought patient in to ER. Provider called and orders for STAT EKG, Trop and IV Morphine for chest pain protocol. EKG/trop negative. Pain resolved with 1 time dose of IV morphine. Will continue to monitor and update provider of any changes.
[2023-02-02] MEDS: TERAZOSIN 5 MG CAPSULE 10 MG PO (20:53)
[2023-02-02] MEDS: METOPROLOL ER 50 MG TABLET PO (20:53)
[2023-02-02] MEDS: FLUTICASONE 120 SPRAY/16 GM SPRAY.SUSP NASAL (22:26)
[2023-02-03] VITALS (16 sets, daily range): BP systolic 112–126; BP diastolic 50–68; PULSE 18–96; RESP 16–22; TEMP 36.2–36.7; O2SAT 90–96
[2023-02-03] MEDS: HYDROCODONE/ACET 5/325 TABLET 1 TAB PO ×4 (00:04→12:46)
[2023-02-03] MEDS: MORPHINE 2 MG/ML INJ IV ×5 (04:28→21:56)
--- NOTE | 2023-02-03 08:14 | PM.PN.1 ---
Subjective Subjective Date Patient Seen: 02/03/23 Time Patient Seen: 07:51 Interval history: Mr. Burris is resting in bed this morning subjectively improved after thoracentesis and chest tube placement yesterday. Dr. Mayes has been in discussion with interventional pulmonology/thoracic surgery for transfer to [address] in order to undergo diagnostic/rigid bronchoscopy. The patient is somewhat hesitant and thinks he would be able to lay down for the 15-20 minute PET-CT procedure but has also demonstrates some difficulty even being able to get to appointments with sufficient oxygen. Ultimately does not think he has any better options and indicates he plans to accept being transferred. Exam Vital Signs (past 8 hours): - 02/03/23 00:54 02/03/23 03:00 02/03/23 04:00 Temperature 97.6 F Pulse Rate 88 Respiratory Rate 16 Blood Pressure 120/68 Pulse Oximetry 95 95 96 Oxygen Delivery Method Room Air Room Air Oxygen Flow Rate 0 0 2.5 Fraction of Inspired Oxygen 28 SaO2/FiO2 Ratio 335 Oxygen Delivery Method Room Air Oxygen Flow Rate 2.5 Narrative Exam Narrative: General: Elderly, frail, ill-appearing male CV: Regular rate, irregularly irregular rhythm, no murmur auscultated Resp: Improved work of breathing no longer using accessory neck muscles, speaks in short sentences similar to his baseline, diminished breath sounds on right side, left lung clear Abdomen: Soft, nontender, nondistended, bowel sounds present, no masses palpated Extremities: No appreciable edema Neuro: A&O x3, normal cognition, moves all extremities Objective Labs 02/02/23 04:41 02/02/23 04:41 Labs: Laboratory Results - last 24 hr 02/02/23 14:00 Total Creatine Kinase < 20 L Troponin I 0.030 [facility] Medical History Left-sided epistaxis Sinusitis Chronic headache Hypertrophic cardiomyopathy BPH (benign prostatic hyperplasia) (Unknown) History of CVA (cerebrovascular accident) (Unknown) COPD (chronic obstructive pulmonary disease) (Unknown) Psoriasis (Unknown) Stroke (Unknown) Essential hypertension (12/14/16) Chronic atrial fibrillation (12/14/16) Surgical History Hx of angioplasty (1979) Hx of CABG (Unknown) Social History household members: none Smoking Status: Former smoker alcohol intake: current Assessment & Plan Assessment & Plan narrative: #R side pleural effusion: Presented with SOB due to combination of chronic respiratory failure, CHF, and persistent right side pleural effusion of unknown etiology in the setting of right hilar lung mass. Pulmonology arranging transfer to [address] for diagnostic and therapeutic rigid bronchoscopy. Previously has been unable to schedule outpatient PET-CT and EBUS due to inability to lay flat and lack of sufficient outpatient oxygen for travel to imaging center. -S/p thoracentesis with chest tube placement draining 1075cc fluid initially, continues to drain #Chest discomfort: Improved. Likely due to fluid accumulation swelling and stretching his chest based on description. Troponin normal at 0.033 on arrival in ED and lower on repeat the following day after repeat complaint. -Pain scale w/bowel regimen -Repeat troponin w/EKG if new/worsening symptoms #COPD: Former smoker with history of obstructive PFTs. Worsening symptoms this year suspected due to obstruction of central airways from hilar mass per pulmonology. -Bronchodilator therapy #Chronic hypoxemic respiratory failure: Likely due to combination of CHF, COPD, right lung volume loss from pleural effusion. -At baseline 2L O2 supplementation #CHF: HFpEF in setting of Afib, initial BNP 4670 on arrival with evidence of patchy left lung infiltrates consistent with pulmonary edema/fluid overload. -Lasix 40 mg IV daily -Metoprolol XL 50 mg daily #Afib: Rate controlled, normally takes warfarin for anticoagulation. -Warfarin held for chest tube placement #Chronic headache: Improved with outpatient triptan Rx, suspect migraine headache -Sumatriptan 50 mg as needed Code status: DNR Time Spent With Patient Time with patient: less than 30 minutes Quality VTE Deep Vein Thrombosis/Pulmonary Embolism Present on Admission: No
[2023-02-03] MEDS: FUROSEMIDE 40 MG/4 ML VIAL IV (08:30)
[2023-02-03] MEDS: polyethylene glycoL 3350 17 GM POWD.PACK PO (08:30)
[2023-02-03] MEDS: FLUTICASONE 120 SPRAY/16 GM SPRAY.SUSP NASAL ×2 (08:31→20:22)
[2023-02-03] MEDS: IPRATROPIUM 0.5 MG/2.5 ML NEB INH ×3 (09:40→19:50)
--- NOTE | 2023-02-03 11:43 | CM.DPC ---
DCP Cont. Reviewed EMR and team rounds for medical status updates. Pt is pending transfer to [facility] for a diagnostic rigid bronchoscopy scheduled for Wednesday. He will transfer as soon as a bed is available. No further DCP needs identified at this time.
--- NOTE | 2023-02-03 16:34 | PC.NURSE ---
Chest tube output yellow straw color with pink sediment at 1,700 this a.m. Completely filled at 1630. Pleuro Vac cannister replaced out put at 2,000. patient with weak productive cough reports pain with coughing, medicated with prn 2mg morphine, along with PRN norco approximately q 4 hours for 8-9/10 pain.
[2023-02-03] MEDS: TERAZOSIN 5 MG CAPSULE 10 MG PO (20:24)
[2023-02-03] MEDS: METOPROLOL ER 50 MG TABLET PO (20:24)
[2023-02-03] MEDS: SODIUM CHLORIDE 0.9% FLUSH 10 ML IV (20:28)
[2023-02-03] MEDS: SUMAtriptan 25 MG TABLET 50 MG PO (20:33)
[2023-02-04] VITALS (13 sets, daily range): BP systolic 98–122; BP diastolic 44–70; PULSE 63–116; RESP 17–22; TEMP 36.3–36.9; O2SAT 90–95
[2023-02-04] MEDS: SUMAtriptan 25 MG TABLET 50 MG PO ×4 (03:32→21:13)
[2023-02-04] MEDS: MORPHINE 2 MG/ML INJ IV ×4 (05:47→18:17)
[2023-02-04] MEDS: SODIUM CHLORIDE 0.9% FLUSH 10 ML IV ×3 (05:47→21:14)
--- NOTE | 2023-02-04 07:55 | P.PN_ITS ---
Subjective Subjective Date Patient Seen: 02/04/23 Time Patient Seen: 07:55 Interval history: Mr. Burris is sleeping in bed this morning. No acute changes overnight he remains stable on his typical 2 L of oxygen. Awaiting transferred to [address] for rigid bronchoscopy tomorrow pending available bed. His friend and HCPOA, Artie, is planning to go with him to [place], which will be helpful. Exam Vital Signs (past 8 hours): - 02/04/23 00:00 02/04/23 00:00 02/04/23 04:00 Temperature 97.3 F L 98.5 F Pulse Rate 89 63 Respiratory Rate 18 21 Blood Pressure 122/70 118/52 L Pulse Oximetry 93 93 92 Oxygen Delivery Method Nasal Cannula Humidification Oxygen Flow Rate 2.5 2.5 2.5 02/04/23 04:00 Temperature Pulse Rate Respiratory Rate Blood Pressure Pulse Oximetry 92 Oxygen Delivery Method Nasal Cannula Humidification Oxygen Flow Rate 2.5 Fraction of Inspired Oxygen 28 SaO2/FiO2 Ratio 335 Oxygen Delivery Method Nasal Cannula,Humidification Oxygen Flow Rate 2.5 Narrative Exam Narrative: General: Elderly, frail appearing male CV: Regular rate, irregularly irregular rhythm, no murmur auscultated Resp: Mild conversational dyspnea, diminished breath sounds on right side, left lung clear Abdomen: Soft, nontender, nondistended, bowel sounds present, no masses palpated Extremities: No appreciable edema Neuro: A&O x3, normal cognition, moves all extremities Objective Labs 02/02/23 04:41 02/02/23 04:41 [facility] Medical History Left-sided epistaxis Sinusitis Chronic headache Hypertrophic cardiomyopathy BPH (benign prostatic hyperplasia) (Unknown) History of CVA (cerebrovascular accident) (Unknown) COPD (chronic obstructive pulmonary disease) (Unknown) Psoriasis (Unknown) Stroke (Unknown) Essential hypertension (12/14/16) Chronic atrial fibrillation (12/14/16) Surgical History Hx of angioplasty (1979) Hx of CABG (Unknown) Social History household members: none Smoking Status: Former smoker alcohol intake: current Assessment & Plan Assessment & Plan narrative: #R side pleural effusion: Stable. Presented with SOB due to combination of chronic respiratory failure, CHF, and persistent right side pleural effusion of unknown etiology in the setting of right hilar lung mass. Awaiting transfer to [address] for diagnostic and therapeutic rigid bronchoscopy. Previously has been unable to schedule outpatient PET-CT and EBUS due to inability to lay flat and lack of sufficient outpatient oxygen for travel to imaging center. -S/p thoracentesis 02/02 with chest tube placement draining 1075cc fluid initially, continues to drain #Chest discomfort: Improved. Likely due to fluid accumulation swelling and stretching his chest based on description. Troponin normal at 0.033 on arrival in ED and lower on repeat the following day after repeat complaint. -Pain scale w/bowel regimen -Repeat troponin w/EKG if new/worsening symptoms #COPD: Former smoker with history of obstructive PFTs. Worsening symptoms this year suspected due to obstruction of central airways from hilar mass per pulmonology. -Bronchodilator therapy #Chronic hypoxemic respiratory failure: Likely due to combination of CHF, COPD, right lung volume loss from pleural effusion. -At baseline 2L O2 supplementation #CHF: HFpEF in setting of Afib, initial BNP 4670 on arrival with evidence of patchy left lung infiltrates consistent with pulmonary edema/fluid overload. -Lasix 40 mg IV daily -Metoprolol XL 50 mg daily #Afib: Rate controlled, normally takes warfarin for anticoagulation. -Warfarin held for chest tube placement #Chronic headache: Improved with outpatient triptan Rx, suspect migraine headache -Sumatriptan 50 mg as needed Code status: DNR Time Spent With Patient Time with patient: less than 30 minutes Quality VTE Deep Vein Thrombosis/Pulmonary Embolism Present on Admission: No
[2023-02-04] MEDS: HYDROCODONE/ACET 5/325 TABLET 1 TAB PO ×2 (08:22→22:16)
[2023-02-04] MEDS: polyethylene glycoL 3350 17 GM POWD.PACK PO (08:23)
[2023-02-04] MEDS: IPRATROPIUM 0.5 MG/2.5 ML NEB INH ×4 (08:49→19:17)
[2023-02-04] MEDS: FLUTICASONE 120 SPRAY/16 GM SPRAY.SUSP NASAL ×2 (09:58→21:13)
[2023-02-04] MEDS: FUROSEMIDE 40 MG/4 ML VIAL IV (10:00)
[2023-02-04 11:19] LABS: Add Manual Diff / Slide Review NO; Basophils Percent Auto 0.8 % (0-2); Hematocrit 34.3 % (41-53); Hemoglobin 11.3 g/dL (13.5-17.5); Lymphocytes Percent Auto 6.5 % (25-40); Mean Corpuscular HGB Conc 32.9 % (30-36); Mean Corpuscular Hemoglobin 28.5 PG (26-34); Mean Corpuscular Volume 86.6 fL (80-100); Monocytes Percent Auto 9.2 % (3-14); Neutrophils Percent Auto 81.5 % (50-75); Platelet Count 376 X10^3/uL (150-400); Red Blood Cell Count 3.96 X10^6/uL (4.5-5.9); Red Cell Distribution Width 15.5 % (11.6-14.8); White Blood Cell Count 9.1 X10^3/uL (4.5-11.0)
[2023-02-04 11:20] LABS: Basophils Absolute Auto 100 /uL (0-100); Eosinophils Absolute Auto 200 /uL (0-450); Lymphocytes Absolute Auto 600 /uL (1100-4500); Monocytes Absolute Auto 800 /uL (0-900); Neutrophils Absolute Auto 7400 /uL (1500-7000)
[2023-02-04 11:28] LABS: INR 2.4 (0.9-1.3); Prothrombin Time 28.3 SECONDS (10.1-12.7)
[2023-02-04 11:33] LABS: Blood Urea Nitrogen 14 mg/dL (9-20); Calcium 8.8 mg/dL (8.4-10.2); Carbon Dioxide 37 mmol/L (22-32); Chloride 81 mmol/L (98-107); Estimated Glomerular Filt Rate > 60 mL/min (>60); Glucose 131 mg/dL (80-110); HEMOLYSIS < 15 (0-50); Potassium 4.5 mmol/L (3.4-5.1); Sodium 124 mmol/L (137-145)
[2023-02-04 11:41] LABS: NT-proBNP (BNP-Adult 18+) 5740 pg/mL (<450)
[2023-02-04] MEDS: CLOBETASOL 0.05% CREAM 15 GM 1 APPLIC TOP (12:57)
[2023-02-04] MEDS: PHYTONADIONE (VIT K1) 10 MG in SODIUM CHLORIDE 0.9% 100 ML 202 MG IV (18:10)
[2023-02-04] MEDS: TERAZOSIN 5 MG CAPSULE 10 MG PO (21:13)
[2023-02-04 23:22] LABS: Sodium 125 mmol/L (137-145)
[2023-02-05] VITALS: O2SAT 91
[2023-02-05 00:20] VITALS: BP 114/50; PULSE 73; RESP 20; TEMP 36.3
--- NOTE | 2023-02-05 00:22 | PC.NURSE ---
operations supervisor 2nd shift [employer] product did not scan for the product and the expiration date. second RN Ashia Kwon verified product number and expiration date (02/05/2023 @4988) as thawed plasma for this administration.,
[2023-02-05 00:37] VITALS: BP 112/55; PULSE 84; RESP 17; TEMP 36.9; O2SAT 92
[2023-02-05 00:39] VITALS: BP 112/55; PULSE 80; RESP 18; TEMP 36.6
[2023-02-05] MEDS: IPRATROPIUM 0.5 MG/2.5 ML NEB INH (01:07)
--- NOTE | 2023-02-05 02:38 | PM.DS.1 ---
History of Present Illness History of Present Illness Date Patient Seen: 02/05/23 Time Patient Seen: 02:38 Chief complaint: can't breathe Narrative: chief complaint shortness of breath Mr. Burris is resting comfortably on 2 liters via nasal cannula. Plan is to transfer to [facility] for rigid bronchoscopy with pulmonology which we do not have available here. He has been receiving FFP for his coags in preparation for this without any problems. Discharge Providers Provider Date of admission: 02/01/23 10:38 Discharge Date: 02/05/23 Primary care physician: Maurisio Lofton MD Consults: 02/01/23 10:57 Consult to Pulmonology Routine Comment: spoke with Dr. Mayes Consulting Provider: [facility] Reason for consultation: thoracentesis, recurrent pleural effusion, Has provider been notified: Yes 02/01/23 13:26 Consult to Dietitian, Adult Routine Comment: Reason For Exam: 20 lb weight loss in past 2 months Discharge provider: Pietro De La Paz MD Summary Hospital Course Discharge Diagnosis: #R side pleural effusion #hyponatremia, acute #abnormal INR #Chest discomfort #COPD #Chronic hypoxemic respiratory failure #CHF: HFpEF in setting of Afib, #Afib #Chronic headache Hospital Course: This is a 77 yo male with hx of COPD on 2L oxygen at home, paroxysmal afib on warfarin, CAD, s/p CABG and PCI, BPH, HTN, hx of CVA, hypertrophic cardiomyopathy who presented to the ED with progressively worsening shortness of breath. He reports he was hospitalized last week for urinary retention and was told he would have his lung drained but that didn't happen. In addition to shortness of breath he was having chest pain earlier. Pain has been present since last week but worsened on day of admission. He has a chronic cough that is non productive. He is constipated but still having bowel movements. Urinary catheter is in place to help with urinary retention that initially brought him in last week. In our care we were able to provide thoracentesis with significant fluid drainage and relief of pressure related symptoms. Based on his presentation with unknown R hilar lung mass and possible malignancy it was decided to move for transfer to a facility with pulm and IR for possible rigid bronchoscopy and biopsies. His FFP is repleted to optimize his INR. Of note a significant hyponatremia developed over the course of his stay without significant symptoms at time of discharge, he did receive some 3% hypertonic saline prior to discharge and recommended to contiue salt tabs with fluid restriction. Etiology of hyponatremia remains obscure but may be connected to hilar mass. Status at Discharge Cognitive/behavioral status at discharge: oriented and at baseline, oriented Functional status at discharge: uses cane/walker Overall status at discharge: patient is not back to baseline Exam Vital Signs (past 8 hours): - 02/04/23 19:00 02/04/23 19:21 02/04/23 20:00 Temperature 97.7 F Pulse Rate 82 116 H Respiratory Rate 18 18 Blood Pressure 119/51 L Pulse Oximetry 95 Oxygen Delivery Method Nasal Cannula Nasal Cannula Oxygen Flow Rate 3 3 02/04/23 20:00 02/04/23 21:12 02/04/23 22:24 Temperature Pulse Rate 116 H Respiratory Rate Blood Pressure 119/51 L Pulse Oximetry 93 93 Oxygen Delivery Method Nasal Cannula Nasal Cannula Oxygen Flow Rate 2 2 02/04/23 23:37 02/05/23 00:00 02/05/23 00:20 Temperature 97.4 F L 97.4 F L Pulse Rate 73 73 Respiratory Rate 17 20 Blood Pressure 114/50 L 114/50 L Pulse Oximetry 94 91 Oxygen Delivery Method Nasal Cannula Oxygen Flow Rate 3 2 02/05/23 00:37 02/05/23 00:39 Temperature 98.4 F 97.8 F Pulse Rate 84 80 Respiratory Rate 17 18 Blood Pressure 112/55 L 112/55 L Pulse Oximetry 92 Oxygen Delivery Method Oxygen Flow Rate 3 Fraction of Inspired Oxygen 32 SaO2/FiO2 Ratio 287 Oxygen Delivery Method Nasal Cannula Oxygen Flow Rate 3 Narrative Exam Narrative: alert elder resting in bed comfortably Eyes Alignment and Position: alignment abnormal (L strabismus mild) Resp Other: chest tube to water seal on R hemithorax. Decreased breath sounds on R. Clear to auscultation on L. Cardio Other: regular rate, s1/s2, pedal edema 2+ GI Other: soft nontender nondistended Other: howell in place Neuro General: patient alert, patient awake, patient oriented x3, moves all extremities and CN's II-XI intact bilaterally Objective Labs 02/04/23 11:05 02/04/23 22:50 Labs: Laboratory Results - last 24 hr 02/04/23 02/04/23 02/04/23 11:05 18:58 22:50 WBC 9.1 RBC 3.96 L Hgb 11.3 L Hct 34.3 L MCV 86.6 MCH 28.5 MCHC 32.9 RDW 15.5 H Plt Count 376 Neut % (Auto) 81.5 H Lymph % (Auto) 6.5 L Roane % (Auto) 9.2 Eos % (Auto) 2.0 Baso % (Auto) 0.8 Neut # (Auto) 7400 H Lymph # (Auto) 600 L [place] # (Auto) 800 Eos # (Auto) 200 Baso # (Auto) 100 PT 28.3 H D INR 2.4 H Sodium 124 L 125 L Potassium 4.5 Chloride 81 L Carbon Dioxide 37 H BUN 14 Creatinine 0.70 Estimated GFR > 60 BUN/Creatinine Ratio 20.0 Glucose 131 H Calcium 8.8 NT-Pro-B Natriuret Pep 5740 H Blood Type O Positive [facility] Medical History Left-sided epistaxis Sinusitis Chronic headache Hypertrophic cardiomyopathy BPH (benign prostatic hyperplasia) (Unknown) History of CVA (cerebrovascular accident) (Unknown) COPD (chronic obstructive pulmonary disease) (Unknown) Psoriasis (Unknown) Stroke (Unknown) Essential hypertension (12/14/16) Chronic atrial fibrillation (12/14/16) Surgical History Hx of angioplasty (1979) Hx of CABG (Unknown) Social History household members: none Smoking Status: Former smoker alcohol intake: current Discharge Assessment & Plan Assessment and Plan Assessment: #R side pleural effusion Stable. Presented with SOB due to combination of chronic respiratory failure, CHF, and persistent right side pleural effusion of unknown etiology in the setting of right hilar lung mass. Awaiting transfer to [address] for diagnostic and therapeutic rigid bronchoscopy. Previously has been unable to schedule outpatient PET-CT and EBUS due to inability to lay flat and lack of sufficient outpatient oxygen for travel to imaging center. -S/p thoracentesis 02/02 with chest tube placement draining 1075cc fluid initially, continues to drain #hyponatremia, acute sodium has been dropping throughout visit from 134 to 124 did receive a bolus of 3% saline with orders to continue fluid restriction with salt tablets afterwards. Trend and monitor. #abnormal INR finishing FFP at request of pulm Dr. Mayes to optimize prior to any biopsies #Chest discomfort Improved s/p thoracentesis, likely due to fluid accumulation swelling and stretching his chest based on description. Troponin normal at 0.033 on arrival in ED and lower on repeat the following day after repeat complaint. Monitor. #COPD Former smoker with history of obstructive PFTs. Worsening symptoms this year suspected due to obstruction of central airways from hilar mass per pulmonology. continue bronchodilator therapy #Chronic hypoxemic respiratory failure Likely due to combination of CHF, COPD, right lung volume loss from pleural effusion. At baseline 2L O2 supplementation stable continue #CHF: HFpEF in setting of Afib, initial BNP 4670 on arrival with evidence of patchy left lung infiltrates consistent with pulmonary edema/fluid overload. -Lasix 40 mg IV daily, takes po at home -Metoprolol XL 50 mg daily #Afib Rate controlled with metoprolol, normally takes warfarin for anticoagulation. Warfarin held for chest tube placement #Chronic headache Improved with outpatient triptan Rx, suspect migraine headache -Sumatriptan 50 mg as needed, got a dose the evening of the and improved. Code status: DNR PCP: Dr. Maurisio Lofton HCPOA: friend Artie diet: fluid restrict 1000 mL/day Discharge Plan Discharge Plan Patient Disposition: [facility] Other facility: [facility] Provider Discharge Comment: c/o Dr. Mayes Discharge Data Primary Care Provider: Maurisio Lofton VTE Deep Vein Thrombosis/Pulmonary Embolism Present on Admission: No
--- NOTE | 2023-02-05 03:25 | PC.NURSE ---
deputy sheriff Patient left via transport At 0308 to [facility] on , all paperwork given to transport crew. [facility] called and RN gave report to MICHAEL Pope. All questions answered.
== END 2023-02-05 03:08 | disposition short-term general hospital (02) | DRG 291 ==
LOC: ED 10:25 → AC 10:39
PROVIDERS: Admitting Provider Student in an Organized Health Care Education/Training Program; Emergency Provider Emergency Medicine; PCP Family Medicine; Referring Provider Emergency Medicine; Visit Provider Family Medicine
DX: I11.0 Hypertensive heart disease with heart failure (principal); J96.21 Acute and chronic respiratory failure with hypoxia; E87.1 Hypo-osmolality and hyponatremia; I50.30 Unspecified diastolic (congestive) heart failure; J44.9 Chronic obstructive pulmonary disease, unspecified; I25.10 Atherosclerotic heart disease of native coronary artery without angina pectoris; I48.0 Paroxysmal atrial fibrillation; N40.1 Benign prostatic hyperplasia with lower urinary tract symptoms; R33.8 Other retention of urine; J43.2 Centrilobular emphysema; R79.1 Abnormal coagulation profile; G43.909 Migraine, unspecified, not intractable, without status migrainosus; R91.8 Other nonspecific abnormal finding of lung field; Z86.73 Personal history of transient ischemic attack (TIA), and cerebral infarction without residual deficits; Z99.81 Dependence on supplemental oxygen; Z79.01 Long term (current) use of anticoagulants; Z95.1 Presence of aortocoronary bypass graft; Z66 Do not resuscitate; Z87.891 Personal history of nicotine dependence
CPT/HCPCS: 32551; 36415; 36430; 71045; 80048; 80053; 82550; 83605; 83690; 83880; 84295; 84484; 85025; 85610; 85730; 86900; 86901; 86927; 93005; 94640; 94760; 96374; 96375; 99232; 99233; 99285; P9016; A9270; J1940; J2270; J2405; J3430